=== PATIENT | female | born 1940 | race Caucasian/White ===

== ENCOUNTER 2019-12-12 13:19 | Emergency (ER) | payer MEDICARE, OTHER ==
[~2019-12-12] VITALS: Ht 154.9 cm; Wt 56.7 kg
[~2019-12-12 13:19] MED LIST: ERGO400 PO; LEVSOD75 PO; THYR60 PO
[2019-12-12 14:25] LABS: BASOPHILS ABSOLUTE AUTO 0.02 K/mm3 (0.00-0.23); BASOPHILS PERCENT AUTO 0 % (0-2); EOSINOPHILS ABSOLUTE AUTO 0.06 K/mm3 (0.00-0.68); EOSINOPHILS PERCENT AUTO 1 % (0-6); Hemoglobin 11.8 g/dL (11.5-16.0); IMMATURE GRAN ABSOLUTE AUTO 0.04 K/mm3 (0.00-0.10); IMMATURE GRAN PERCENT AUTO 1 % (0-1); LYMPHOCYTES ABSOLUTE AUTO 1.83 K/mm3 (0.84-5.20); LYMPHOCYTES PERCENT AUTO 22 % (21-46); MONOCYTES ABSOLUTE AUTO 0.78 K/mm3 (0.16-1.47); MONOCYTES PERCENT AUTO 9 % (4-13); Mean Corpuscular HGB 27.2 pg (26.0-34.0); Mean Corpuscular HGB Conc 31.9 g/dL (31.5-36.5); Mean Corpuscular Volume 85 fL (80-100); Mean Platelet Volume 10.2 fL (9.1-12.4); NEUTROPHILS ABSOLUTE AUTO 5.62 K/mm3 (1.96-9.15); NEUTROPHILS PERCENT AUTO 67 % (41-73); Platelet Count 388 K/mm3 (150-400); RDW Coefficient Variation 15.6 % (11.7-14.2); RDW Standard Deviation 48.5 fL (35.1-46.3); Red Blood Cell Count 4.34 M/mm3 (3.80-5.20); White Blood Cell Count 8.35 K/mm3 (4.00-11.30)
[2019-12-12 14:29] LABS: Bilirubin, Urine Neg (Neg); Blood, Urine Neg (Neg); Glucose Qualitative, Urine Neg (Neg); Ketones, Urine Neg (Neg); Leukocyte Esterase, Urine 1+ (Neg); Nitrite, Urine Neg (Neg); Protein, Urine 2+ (Neg); Source, Urine Clean Catch; Urobilinogen, Urine NORM (Normal)
[2019-12-12 14:36] LABS: Appearance, Urine Clear (Clear); Color, Urine Yellow (P-Yellow)
[2019-12-12 14:38] LABS: Bacteria Few /hpf; Mucus Light (0-Heavy); Red Blood Cells, Urine 0-2 /hpf (0-2); Squamous Epithelial Cells Few /hpf (Few)
[2019-12-12 14:54] LABS: Albumin, Blood 3.2 g/dL (3.4-5.0); Albumin/Globulin Ratio 0.6 (0.8-1.8); Bilirubin, Total 0.6 mg/dL (0.1-1.0); Bun/Creatinine Ratio 15.8 (12.0-20.0); Creatinine, Blood 1.14 mg/dL (0.40-1.00); Globulin, Blood 5.7 g/dL (2.2-4.0); Potassium, Blood 4.3 mmol/L (3.5-5.5); Total Protein, Blood 8.9 g/dL (6.4-8.2)
== END 2019-12-12 18:46 | disposition home or self-care (01) ==
LOC: ER 13:19
PROVIDERS: Physician Assistant
DX: R19.00 Intra-abdominal and pelvic swelling, mass and lump, unspecified site (principal); E03.9 Hypothyroidism, unspecified; Z79.899 Other long term (current) drug therapy
CPT/HCPCS: 36415; 74176; 76830; 76856; 80053; 81001; 83690; 85025; 87086; 99284-25

== ENCOUNTER → 2020-03-04 | Outpatient (CLI) | payer MEDICARE, OTHER ==
[~2020-03-04] MED LIST changes: +ACET500 PO; +Armour Thyroid120 MG PO; +BACTRIM DS TAB1 EACH PO; +CEFD300 PO; -ERGO400 PO; +KEFLEX500 MG PO; +ONDA4 PO; +THERA-D2000 UNIT PO
[2020-03-04 11:09] LABS: BASOPHILS ABSOLUTE AUTO 0.02 K/mm3 (0.00-0.23); BASOPHILS PERCENT AUTO 0 % (0-2); EOSINOPHILS PERCENT AUTO 1 % (0-6); Hematocrit 32.8 % (33.0-51.0); IMMATURE GRAN ABSOLUTE AUTO 0.02 K/mm3 (0.00-0.10); IMMATURE GRAN PERCENT AUTO 0 % (0-1); LYMPHOCYTES ABSOLUTE AUTO 1.51 K/mm3 (0.84-5.20); LYMPHOCYTES PERCENT AUTO 17 % (21-46); MONOCYTES ABSOLUTE AUTO 1.18 K/mm3 (0.16-1.47); MONOCYTES PERCENT AUTO 13 % (4-13); Mean Corpuscular HGB 28.7 pg (26.0-34.0); Mean Corpuscular HGB Conc 30.5 g/dL (31.5-36.5); Mean Corpuscular Volume 94 fL (80-100); Mean Platelet Volume 10.6 fL (9.1-12.4); NEUTROPHILS ABSOLUTE AUTO 5.99 K/mm3 (1.96-9.15); NEUTROPHILS PERCENT AUTO 68 % (41-73); Platelet Count 360 K/mm3 (150-400); RDW Standard Deviation 55.6 fL (35.1-46.3); Red Blood Cell Count 3.48 M/mm3 (3.80-5.20); White Blood Cell Count 8.82 K/mm3 (4.00-11.30)
[2020-03-04 11:41] LABS: Albumin/Globulin Ratio 0.6 (0.8-1.8); Bilirubin, Total 0.3 mg/dL (0.1-1.0); Bun/Creatinine Ratio 12.6 (12.0-20.0); Calcium, Blood 8.7 mg/dL (8.5-10.1); Creatinine, Blood 1.11 mg/dL (0.40-1.00); Globulin, Blood 5.3 g/dL (2.2-4.0); Potassium, Blood 3.8 mmol/L (3.5-5.5); Total Protein, Blood 8.3 g/dL (6.4-8.2)
== END | disposition home or self-care (01) ==
LOC: LAB 10:57 → LAB SHORT 10:57
PROVIDERS: Physician Assistant
DX: N39.0 Urinary tract infection, site not specified (principal); R30.0 Dysuria; R53.83 Other fatigue
CPT/HCPCS: 80053; 85025; 87086

== ENCOUNTER → 2020-03-07 | Outpatient (CLI) | payer MEDICARE, OTHER | END | disposition home or self-care (01) | LOC: LAB SHORT 15:00 → LAB 15:00 | DX: R30.0 Dysuria (principal) | CPT/HCPCS: 87077; 87086; 87186 ==

== ENCOUNTER → 2020-04-10 | Outpatient (CLI) | payer MEDICARE, OTHER | LOC: LAB 18:42 → LAB SHORT 18:42 | DX: R30.0 Dysuria (principal) | CPT/HCPCS: 87077; 87086; 87186 ==

== ENCOUNTER 2020-06-01 04:07 | Emergency (ER) | payer MEDICARE, OTHER ==
[~2020-06-01] VITALS: Ht 152.4 cm; Wt 49.9 kg
[2020-06-01 04:32] LABS: BASOPHILS ABSOLUTE AUTO 0.01 K/mm3 (0.00-0.23); BASOPHILS PERCENT AUTO 0 % (0-2); EOSINOPHILS ABSOLUTE AUTO 0.22 K/mm3 (0.00-0.68); EOSINOPHILS PERCENT AUTO 2 % (0-6); Hematocrit 34.1 % (33.0-51.0); Hemoglobin 10.6 g/dL (11.5-16.0); IMMATURE GRAN ABSOLUTE AUTO 0.07 K/mm3 (0.00-0.10); IMMATURE GRAN PERCENT AUTO 1 % (0-1); LYMPHOCYTES PERCENT AUTO 11 % (21-46); MONOCYTES ABSOLUTE AUTO 0.12 K/mm3 (0.16-1.47); MONOCYTES PERCENT AUTO 1 % (4-13); Mean Corpuscular HGB 26.1 pg (26.0-34.0); Mean Corpuscular HGB Conc 31.1 g/dL (31.5-36.5); Mean Corpuscular Volume 84 fL (80-100); Mean Platelet Volume 10.5 fL (9.1-12.4); NEUTROPHILS PERCENT AUTO 85 % (41-73); Platelet Count 283 K/mm3 (150-400); RDW Coefficient Variation 15.9 % (11.7-14.2); RDW Standard Deviation 48.2 fL (35.1-46.3); Red Blood Cell Count 4.06 M/mm3 (3.80-5.20); White Blood Cell Count 11.52 K/mm3 (4.00-11.30)
[2020-06-01 04:56] LABS: Alanine Aminotransfer (ALT/SGP 24 U/L (12-78); Albumin/Globulin Ratio 0.7 (0.8-1.8); Alk Phos 54 U/L (50-136); Anion Gap 5 mmol/L (6-16); Aspartate Aminotrans (AST/SGOT 25 U/L (12-37); Bilirubin, Total 0.6 mg/dL (0.1-1.0); Blood Urea Nitrogen 28 mg/dL (8-24); Bun/Creatinine Ratio 26.4 (12.0-20.0); CO2, Blood 27 mmol/L (21-32); Calcium, Blood 8.5 mg/dL (8.5-10.1); Chloride, Blood 106 mmol/L (98-108); Creatinine, Blood 1.06 mg/dL (0.40-1.00); Globulin, Blood 4.6 g/dL (2.2-4.0); Glomerular Filtration Rate 53 (60-); Glucose, Blood 111 mg/dL (70-99); Potassium, Blood 3.9 mmol/L (3.5-5.5); Sodium, Blood 138 mmol/L (136-145); Total Protein, Blood 7.6 g/dL (6.4-8.2); Troponin I <0.015 ng/mL (0.000-0.040)
== END 2020-06-01 07:02 | disposition home or self-care (01) ==
LOC: ER 04:07
PROVIDERS: Emergency Medicine
DX: R55 Syncope and collapse (principal); R41.0 Disorientation, unspecified; R53.1 Weakness
CPT/HCPCS: 70450; 80053; 84484; 85025; 93005; 93010; 96374; 99284-25; A9270; J2405

== ENCOUNTER 2020-06-29 12:17 | Emergency (ER) | payer MEDICARE, OTHER ==
[~2020-06-29] VITALS: Ht 152.4 cm; Wt 50.4 kg
[2020-06-29 13:01] LABS: BASOPHILS ABSOLUTE AUTO 0.01 K/mm3 (0.00-0.23); BASOPHILS PERCENT AUTO 0 % (0-2); EOSINOPHILS ABSOLUTE AUTO 0.04 K/mm3 (0.00-0.68); EOSINOPHILS PERCENT AUTO 1 % (0-6); Hematocrit 28.8 % (33.0-51.0); Hemoglobin 8.8 g/dL (11.5-16.0); IMMATURE GRAN ABSOLUTE AUTO 0.08 K/mm3 (0.00-0.10); IMMATURE GRAN PERCENT AUTO 3 % (0-1); LYMPHOCYTES ABSOLUTE AUTO 0.86 K/mm3 (0.84-5.20); LYMPHOCYTES PERCENT AUTO 27 % (21-46); MONOCYTES ABSOLUTE AUTO 0.71 K/mm3 (0.16-1.47); MONOCYTES PERCENT AUTO 22 % (4-13); Mean Corpuscular HGB 25.7 pg (26.0-34.0); Mean Corpuscular HGB Conc 30.6 g/dL (31.5-36.5); Mean Corpuscular Volume 84 fL (80-100); Mean Platelet Volume 9.3 fL (9.1-12.4); NEUTROPHILS ABSOLUTE AUTO 1.48 K/mm3 (1.96-9.15); NEUTROPHILS PERCENT AUTO 47 % (41-73); NRBC ABSOLUTE 0.02 K/mm3 (0.00-0.02); NRBC Auto 0.6 /100 WBC (0.0-0.2); Platelet Count 306 K/mm3 (150-400); RDW Coefficient Variation 17.2 % (11.7-14.2); RDW Standard Deviation 51.9 fL (35.1-46.3); Red Blood Cell Count 3.42 M/mm3 (3.80-5.20); White Blood Cell Count 3.18 K/mm3 (4.00-11.30)
[2020-06-29 13:22] LABS: Albumin/Globulin Ratio 0.7 (0.8-1.8); Bilirubin, Total 0.3 mg/dL (0.1-1.0); Bun/Creatinine Ratio 11.5 (12.0-20.0); Calcium, Blood 8.5 mg/dL (8.5-10.1); Creatinine, Blood 1.3 mg/dL (0.40-1.00); Globulin, Blood 4.6 g/dL (2.2-4.0); Potassium, Blood 4.3 mmol/L (3.5-5.5); Total Protein, Blood 7.6 g/dL (6.4-8.2)
[2020-06-29 14:44] LABS: Source, Urine Clean Catch
[2020-06-29 14:48] LABS: Bilirubin, Urine Neg (Neg); Blood, Urine Neg (Neg); Glucose Qualitative, Urine Neg (Neg); Ketones, Urine Neg (Neg); Leukocyte Esterase, Urine Neg (Neg); Nitrite, Urine Neg (Neg); Protein, Urine Neg (Neg); Specific Gravity, Urine 1.005 (1.003-1.022); Urobilinogen, Urine NORM (Normal)
[2020-06-29 14:53] LABS: Appearance, Urine Clear (Clear); Color, Urine Yellow (P-Yellow)
== END 2020-06-29 16:14 | disposition home or self-care (01) ==
LOC: ER 12:17
PROVIDERS: Emergency Medicine
DX: D64.9 Anemia, unspecified (principal); Z88.0 Allergy status to penicillin
CPT/HCPCS: 36415; 80053; 81003; 85025; 93005; 93010; 99284-25; J7030

== ENCOUNTER 2020-07-08 00:12 | Day surgery (SDC) | payer MEDICARE, OTHER ==
[2020-07-08] MEDS ORDERED: Ativan1 MG (14:05)
[2020-07-08] MEDS ORDERED: LIDO700A20 TOP (14:05)
[2020-07-08] MEDS ORDERED: THYR60 PO (14:06)
[2020-07-08] MEDS ORDERED: VITAMIN D32000 UNI2 PO (14:07)
== END 2020-07-08 15:00 | disposition home or self-care (01) ==
LOC: ATC 00:12
DX: E86.0 Dehydration (principal); C56.1 Malignant neoplasm of right ovary; D63.0 Anemia in neoplastic disease; Z79.899 Other long term (current) drug therapy; Z88.0 Allergy status to penicillin
CPT/HCPCS: 96360; J1642; J7030

== ENCOUNTER 2020-07-09 00:27 | Day surgery (SDC) | payer MEDICARE, OTHER ==
[~2020-07-09 00:27] MED LIST changes: +Ativan1 MG; +LIDO700A20 TOP; +VITAMIN D32000 UNI2 PO
== END 2020-07-09 15:12 | disposition home or self-care (01) ==
LOC: ATC 00:27
DX: E86.0 Dehydration (principal); C56.9 Malignant neoplasm of unspecified ovary; D63.0 Anemia in neoplastic disease; R55 Syncope and collapse; T45.1X5A Adverse effect of antineoplastic and immunosuppressive drugs, initial encounter; Z88.0 Allergy status to penicillin
CPT/HCPCS: 96360; J1642; J7030

== ENCOUNTER 2020-07-14 16:30 | Emergency (ER) | payer MEDICARE, OTHER | END 2020-07-14 16:56 | disposition left against medical advice (07) | LOC: ER 16:30 | DX: Z53.21 Procedure and treatment not carried out due to patient leaving prior to being seen by health care provider (principal) ==

== ENCOUNTER 2020-07-14 16:50 | Day surgery (SDC) | payer MEDICARE, OTHER ==
--- NOTE | 2020-07-14 18:26 | NUR ---
PT LEFT ACCESSED. TO ER VIA WC WITH DAUGHTER.
== END 2020-07-14 18:17 | disposition home or self-care (01) ==
LOC: ATC 16:50
DX: C56.1 Malignant neoplasm of right ovary (principal); Z88.0 Allergy status to penicillin; D63.0 Anemia in neoplastic disease
CPT/HCPCS: 96360; J7030

== ENCOUNTER 2020-07-14 18:32 | Emergency (ER) | payer MEDICARE, OTHER ==
[~2020-07-14] VITALS: Ht 152.4 cm; Wt 49.9 kg
[2020-07-14 19:26] LABS: Hematocrit 25.3 % (33.0-51.0); Hemoglobin 7.8 g/dL (11.5-16.0); Mean Corpuscular HGB 25.7 pg (26.0-34.0); Mean Corpuscular HGB Conc 30.8 g/dL (31.5-36.5); Mean Corpuscular Volume 84 fL (80-100); Mean Platelet Volume 10.1 fL (9.1-12.4); NRBC ABSOLUTE 0.02 K/mm3 (0.00-0.02); NRBC Auto 0.4 /100 WBC (0.0-0.2); Platelet Count 254 K/mm3 (150-400); RDW Coefficient Variation 18.2 % (11.7-14.2); RDW Standard Deviation 52.9 fL (35.1-46.3); Red Blood Cell Count 3.03 M/mm3 (3.80-5.20)
[2020-07-14 19:55] LABS: Alanine Aminotransfer (ALT/SGP 35 U/L (12-78); Albumin, Blood 2.5 g/dL (3.4-5.0); Albumin/Globulin Ratio 0.5 (0.8-1.8); Alk Phos 86 U/L (50-136); Anion Gap 6 mmol/L (6-16); Aspartate Aminotrans (AST/SGOT 28 U/L (12-37); Bilirubin, Total 0.3 mg/dL (0.1-1.0); Blood Urea Nitrogen 16 mg/dL (8-24); Bun/Creatinine Ratio 13.1 (12.0-20.0); CO2, Blood 25 mmol/L (21-32); Calcium, Blood 8.5 mg/dL (8.5-10.1); Chloride, Blood 108 mmol/L (98-108); Creatinine, Blood 1.22 mg/dL (0.40-1.00); Globulin, Blood 4.7 g/dL (2.2-4.0); Glomerular Filtration Rate 45 (60-); Glucose, Blood 121 mg/dL (70-99); Potassium, Blood 4.4 mmol/L (3.5-5.5); Sodium, Blood 139 mmol/L (136-145); Total Protein, Blood 7.2 g/dL (6.4-8.2); Troponin I <0.015 ng/mL (0.000-0.040)
[2020-07-14 19:56] LABS: BASOPHILS ABSOLUTE MAN 0.04 K/mm3 (0.00-0.23); BASOPHILS PERCENT MAN 1 % (0-2); EOSINOPHILS PERCENT MAN 0 % (0-6); LYMPHOCYTES ABSOLUTE MAN 0.51 K/mm3 (0.84-5.20); LYMPHOCYTES PERCENT MAN 11 % (21-46); MONOCYTES ABSOLUTE MAN 0.28 K/mm3 (0.16-1.47); MONOCYTES PERCENT MAN 6 % (4-13); NEUTROPHILS ABSOLUTE MAN 3.85 K/mm3 (1.96-9.15); SEG NEUTROPHILS PERCENT MAN 82 % (41-73); TOTAL CELLS COUNTED 100
== END 2020-07-14 20:54 | disposition home or self-care (01) ==
LOC: ER 18:32
PROVIDERS: Physician Assistant
DX: R55 Syncope and collapse (principal); D53.9 Nutritional anemia, unspecified; E03.9 Hypothyroidism, unspecified; Z88.0 Allergy status to penicillin; Z79.899 Other long term (current) drug therapy
CPT/HCPCS: 80053; 84484; 85025; 93005; 93010; 99283-25; J1642

== ENCOUNTER 2020-07-19 07:04 | Day surgery (SDC) | payer MEDICARE, OTHER ==
[2020-07-19] MEDS ORDERED: SULTRIDS PO (13:57)
== END 2020-07-19 14:36 | disposition home or self-care (01) ==
LOC: ATC 07:04
DX: C56.1 Malignant neoplasm of right ovary (principal); D63.0 Anemia in neoplastic disease; Z79.899 Other long term (current) drug therapy
CPT/HCPCS: 96360; J1642; J7030

== ENCOUNTER 2020-07-21 08:28 | Day surgery (SDC) | payer MEDICARE, OTHER ==
[2020-07-21 09:13] LABS: BASOPHILS ABSOLUTE AUTO 0.02 K/mm3 (0.00-0.23); BASOPHILS PERCENT AUTO 0 % (0-2); EOSINOPHILS ABSOLUTE AUTO 0.04 K/mm3 (0.00-0.68); EOSINOPHILS PERCENT AUTO 1 % (0-6); Hematocrit 26.9 % (33.0-51.0); Hemoglobin 8.2 g/dL (11.5-16.0); IMMATURE GRAN ABSOLUTE AUTO 0.13 K/mm3 (0.00-0.10); IMMATURE GRAN PERCENT AUTO 3 % (0-1); LYMPHOCYTES ABSOLUTE AUTO 1.29 K/mm3 (0.84-5.20); LYMPHOCYTES PERCENT AUTO 28 % (21-46); MONOCYTES ABSOLUTE AUTO 0.78 K/mm3 (0.16-1.47); MONOCYTES PERCENT AUTO 17 % (4-13); Mean Corpuscular HGB 25.5 pg (26.0-34.0); Mean Corpuscular HGB Conc 30.5 g/dL (31.5-36.5); Mean Corpuscular Volume 84 fL (80-100); Mean Platelet Volume 9.3 fL (9.1-12.4); NEUTROPHILS PERCENT AUTO 52 % (41-73); Platelet Count 469 K/mm3 (150-400); RDW Coefficient Variation 18.8 % (11.7-14.2); RDW Standard Deviation 55.8 fL (35.1-46.3); Red Blood Cell Count 3.22 M/mm3 (3.80-5.20); White Blood Cell Count 4.66 K/mm3 (4.00-11.30)
[2020-07-21 09:43] LABS: Alanine Aminotransfer (ALT/SGP 20 U/L (12-78); Albumin, Blood 2.9 g/dL (3.4-5.0); Albumin/Globulin Ratio 0.6 (0.8-1.8); Alk Phos 89 U/L (50-136); Anion Gap 5 mmol/L (6-16); Aspartate Aminotrans (AST/SGOT 19 U/L (12-37); Bilirubin, Direct <0.1 mg/dL (0.0-0.3); Bilirubin, Total 0.2 mg/dL (0.1-1.0); Blood Urea Nitrogen 17 mg/dL (8-24); Bun/Creatinine Ratio 10.7 (12.0-20.0); CHOL/HDL RATIO 3.6; CO2, Blood 25 mmol/L (21-32); Calcium, Blood 9.3 mg/dL (8.5-10.1); Chloride, Blood 111 mmol/L (98-108); Cholesterol 158 mg/dL (50-200); Creatinine, Blood 1.59 mg/dL (0.40-1.00); Globulin, Blood 5.1 g/dL (2.2-4.0); Glomerular Filtration Rate 33 (60-); Glucose, Blood 83 mg/dL (70-99); Glutamyl Transpeptidase, GGT 32 U/L (5-55); HDL Cholesterol 44 mg/dL (>39); Low Density Lipoprotein Chol 88 mg/dL (0-110); Phosphorus, Blood 3.8 mg/dL (2.5-4.9); Potassium, Blood 4.6 mmol/L (3.5-5.5); Sodium, Blood 141 mmol/L (136-145); Triglycerides 132 mg/dL (30-160); Uric Acid, Blood 4.3 mg/dL (2.6-6.0); Very Low Density Lipoprot Chol 26 mg/dL (6-32)
--- NOTE | 2020-07-21 10:30 | NUR ---
LAB RESULTS FROM LABS DRAWN TODAY FAXED TO DR. MORALES'S OFFICE AT [phone].
== END 2020-07-21 10:13 | disposition home or self-care (01) ==
LOC: ATC 08:28
PROVIDERS: Naturopath
DX: C56.1 Malignant neoplasm of right ovary (principal); D63.0 Anemia in neoplastic disease; R55 Syncope and collapse; Z79.899 Other long term (current) drug therapy
CPT/HCPCS: 80053; 80061; 82248; 82977; 83540; 84100; 84443; 84550; 85025; 85651; J1642; J7030

== ENCOUNTER → 2020-07-21 | Outpatient (CLI) | payer MEDICARE, OTHER ==
[~2020-07-21] MED LIST changes: +SULTRIDS PO
== END ==
LOC: LAB SHORT 09:00 → LAB 09:00
DX: N39.0 Urinary tract infection, site not specified (principal)
CPT/HCPCS: 87086

== ENCOUNTER 2020-07-25 00:27 | Day surgery (SDC) | payer MEDICARE, OTHER | END 2020-07-25 12:00 | disposition home or self-care (01) | LOC: ATC 00:27 | DX: E86.0 Dehydration (principal); C56.9 Malignant neoplasm of unspecified ovary; R55 Syncope and collapse; D63.0 Anemia in neoplastic disease ==

== ENCOUNTER 2020-07-30 00:09 | Day surgery (SDC) | payer MEDICARE, OTHER | END 2020-07-30 17:12 | disposition home or self-care (01) | LOC: ATC 00:09 | DX: E86.0 Dehydration (principal); C65.1 Malignant neoplasm of right renal pelvis; D63.0 Anemia in neoplastic disease | CPT/HCPCS: 96360; J1642; J7030 ==

== ENCOUNTER 2020-08-01 01:47 | Day surgery (SDC) | payer MEDICARE, OTHER | END 2020-08-01 15:21 | disposition home or self-care (01) | LOC: ATC 01:47 | DX: E86.0 Dehydration (principal); C56.9 Malignant neoplasm of unspecified ovary; D63.0 Anemia in neoplastic disease | CPT/HCPCS: 96360; J1642; J7030 ==

== ENCOUNTER 2020-08-02 00:34 | Day surgery (SDC) | payer MEDICARE, OTHER | END 2020-08-02 10:55 | disposition home or self-care (01) | LOC: ATC 00:34 | DX: E86.0 Dehydration (principal); C56.1 Malignant neoplasm of right ovary; G89.29 Other chronic pain; M54.2 Cervicalgia; Z88.0 Allergy status to penicillin; Z93.6 Other artificial openings of urinary tract status; Z90.79 Acquired absence of other genital organ(s); Z90.722 Acquired absence of ovaries, bilateral; Z79.2 Long term (current) use of antibiotics; Z79.52 Long term (current) use of systemic steroids; Z79.899 Other long term (current) drug therapy | CPT/HCPCS: 96360; J1642; J7030 ==

== ENCOUNTER 2020-08-03 01:49 | Day surgery (SDC) | payer MEDICARE, OTHER | END 2020-08-03 11:36 | disposition home or self-care (01) | LOC: ATC 01:49 | DX: E86.0 Dehydration (principal); C56.9 Malignant neoplasm of unspecified ovary; D63.0 Anemia in neoplastic disease | CPT/HCPCS: 96360; J1642; J7030 ==

== ENCOUNTER 2020-08-06 00:45 | Day surgery (SDC) | payer MEDICARE, OTHER | END 2020-08-06 17:25 | disposition home or self-care (01) | LOC: ATC 00:45 | DX: E86.0 Dehydration (principal); C56.9 Malignant neoplasm of unspecified ovary; D63.0 Anemia in neoplastic disease | CPT/HCPCS: 96360; J1642; J7030 ==

== ENCOUNTER 2020-08-09 10:51 | Day surgery (SDC) | payer MEDICARE, OTHER | END 2020-08-09 12:04 | disposition home or self-care (01) | LOC: ATC 10:51 | DX: E86.0 Dehydration (principal); C56.1 Malignant neoplasm of right ovary; D63.0 Anemia in neoplastic disease; Z88.0 Allergy status to penicillin; Z79.899 Other long term (current) drug therapy | CPT/HCPCS: 96360; J1642; J7030 ==

== ENCOUNTER 2020-08-13 00:31 | Day surgery (SDC) | payer MEDICARE, OTHER | END 2020-08-13 22:45 | disposition home or self-care (01) | LOC: ATC 00:31 | DX: E86.0 Dehydration (principal); I10 Essential (primary) hypertension; C56.9 Malignant neoplasm of unspecified ovary; D63.0 Anemia in neoplastic disease; Z79.899 Other long term (current) drug therapy | CPT/HCPCS: 96360; J1642; J7030 ==

== ENCOUNTER 2020-08-22 01:33 | Day surgery (SDC) | payer MEDICARE, OTHER ==
[2020-08-22 08:29] LABS: BASOPHILS ABSOLUTE AUTO 0.01 K/mm3 (0.00-0.23); BASOPHILS PERCENT AUTO 0 % (0-2); EOSINOPHILS ABSOLUTE AUTO 0.01 K/mm3 (0.00-0.68); EOSINOPHILS PERCENT AUTO 0 % (0-6); Hematocrit 29.5 % (33.0-51.0); Hemoglobin 9.1 g/dL (11.5-16.0); IMMATURE GRAN ABSOLUTE AUTO 0.02 K/mm3 (0.00-0.10); IMMATURE GRAN PERCENT AUTO 0 % (0-1); LYMPHOCYTES ABSOLUTE AUTO 1.73 K/mm3 (0.84-5.20); LYMPHOCYTES PERCENT AUTO 32 % (21-46); MONOCYTES ABSOLUTE AUTO 0.23 K/mm3 (0.16-1.47); MONOCYTES PERCENT AUTO 4 % (4-13); Mean Corpuscular HGB 27.7 pg (26.0-34.0); Mean Corpuscular HGB Conc 30.8 g/dL (31.5-36.5); Mean Corpuscular Volume 90 fL (80-100); Mean Platelet Volume 9.9 fL (9.1-12.4); NEUTROPHILS ABSOLUTE AUTO 3.44 K/mm3 (1.96-9.15); NEUTROPHILS PERCENT AUTO 63 % (41-73); Platelet Count 251 K/mm3 (150-400); RDW Coefficient Variation 24.4 % (11.7-14.2); RDW Standard Deviation 78.3 fL (35.1-46.3); Red Blood Cell Count 3.29 M/mm3 (3.80-5.20); White Blood Cell Count 5.44 K/mm3 (4.00-11.30)
[2020-08-22 09:01] LABS: Very Low Density Lipoprot Chol 17 mg/dL (6-32)
[2020-08-22 09:02] LABS: Alanine Aminotransfer (ALT/SGP 25 U/L (12-78); Albumin, Blood 3.6 g/dL (3.4-5.0); Albumin/Globulin Ratio 0.8 (0.8-1.8); Alk Phos 76 U/L (50-136); Anion Gap 6 mmol/L (6-16); Aspartate Aminotrans (AST/SGOT 20 U/L (12-37); Bilirubin, Total 0.7 mg/dL (0.1-1.0); Blood Urea Nitrogen 31 mg/dL (8-24); Bun/Creatinine Ratio 31.2 (12.0-20.0); CHOL/HDL RATIO 2.9; CO2, Blood 28 mmol/L (21-32); Calcium, Blood 8.9 mg/dL (8.5-10.1); Chloride, Blood 107 mmol/L (98-108); Cholesterol 229 mg/dL (50-200); Creatinine, Blood 0.99 mg/dL (0.40-1.00); Globulin, Blood 4.5 g/dL (2.2-4.0); Glomerular Filtration Rate 57 (60-); Glucose, Blood 76 mg/dL (70-99); HDL Cholesterol 79 mg/dL (>39); LDL/HDL RATIO 1.7; Low Density Lipoprotein Chol 133 mg/dL (0-110); Potassium, Blood 4.1 mmol/L (3.5-5.5); Sodium, Blood 141 mmol/L (136-145); Total Protein, Blood 8.1 g/dL (6.4-8.2); Triglycerides 87 mg/dL (30-160)
== END 2020-08-22 08:59 | disposition home or self-care (01) ==
LOC: ATC 01:33
PROVIDERS: Internal Medicine Hematology & Oncology
DX: E03.9 Hypothyroidism, unspecified (principal); E78.5 Hyperlipidemia, unspecified; C56.1 Malignant neoplasm of right ovary; D63.0 Anemia in neoplastic disease; Z79.899 Other long term (current) drug therapy
CPT/HCPCS: 80053; 80061; 84443; 85025; J1642; J7030

== ENCOUNTER 2020-09-10 00:54 | Day surgery (SDC) | payer MEDICARE, OTHER | END 2020-09-10 17:40 | disposition home or self-care (01) | LOC: ATC 00:54 | DX: C56.1 Malignant neoplasm of right ovary (principal); D63.0 Anemia in neoplastic disease; I12.9 Hypertensive chronic kidney disease with stage 1 through stage 4 chronic kidney disease, or unspecified chronic kidney disease; N18.30 Chronic kidney disease, stage 3 unspecified; E78.00 Pure hypercholesterolemia, unspecified; E78.5 Hyperlipidemia, unspecified; E03.9 Hypothyroidism, unspecified; Z79.899 Other long term (current) drug therapy; Z88.0 Allergy status to penicillin | CPT/HCPCS: 96360; J1642; J7030 ==

== ENCOUNTER 2020-09-12 00:37 | Day surgery (SDC) | payer MEDICARE, OTHER ==
[2020-09-12] MEDS ORDERED: NEULASTA6 MG/0.6 M SC (16:22)
--- NOTE | 2020-09-12 17:41 | NUR ---
PT GOING TO ER R/T NEW ONSET HTN, POUNDING HEART. PT ACCOMPANIED BY HER DAUGHTER.
== END 2020-09-12 17:30 | disposition home or self-care (01) ==
LOC: ATC 00:37
DX: C56.1 Malignant neoplasm of right ovary (principal); D63.0 Anemia in neoplastic disease; Z88.0 Allergy status to penicillin
CPT/HCPCS: J1642; J7030

== ENCOUNTER 2020-09-12 17:35 | Emergency (ER) | payer MEDICARE, OTHER ==
[~2020-09-12] VITALS: Ht 152.4 cm; Wt 54.4 kg
[~2020-09-12 17:35] MED LIST changes: +NEULASTA6 MG/0.6 M SC
[2020-09-12 18:22] LABS: Hematocrit 31.7 % (33.0-51.0); Hemoglobin 9.6 g/dL (11.5-16.0); Mean Corpuscular HGB 28.9 pg (26.0-34.0); Mean Corpuscular HGB Conc 30.3 g/dL (31.5-36.5); Mean Corpuscular Volume 96 fL (80-100); Mean Platelet Volume 9.8 fL (9.1-12.4); Platelet Count 177 K/mm3 (150-400); RDW Coefficient Variation 22.5 % (11.7-14.2); RDW Standard Deviation 78.8 fL (35.1-46.3); Red Blood Cell Count 3.32 M/mm3 (3.80-5.20)
[2020-09-12 18:44] LABS: BAND PERCENT MAN 2 % (0-8); BASOPHILS PERCENT MAN 0 % (0-2); EOSINOPHILS PERCENT MAN 0 % (0-6); LYMPHOCYTES ABSOLUTE MAN 1.64 K/mm3 (0.84-5.20); LYMPHOCYTES PERCENT MAN 7 % (21-46); METAMYELOCYTE PERCENT MAN 3 % (0-0); MONOCYTES ABSOLUTE MAN 0.94 K/mm3 (0.16-1.47); MONOCYTES PERCENT MAN 4 % (4-13); NEUTROPHILS ABSOLUTE MAN 20.21 K/mm3 (1.96-9.15); SEG NEUTROPHILS PERCENT MAN 84 % (41-73); TOTAL CELLS COUNTED 100
[2020-09-12 18:50] LABS: Troponin I <0.015 ng/mL (0.000-0.040)
[2020-09-12 18:51] LABS: Alanine Aminotransfer (ALT/SGP 27 U/L (12-78); Albumin, Blood 3.6 g/dL (3.4-5.0); Albumin/Globulin Ratio 0.9 (0.8-1.8); Alk Phos 107 U/L (50-136); Anion Gap 8 mmol/L (6-16); Aspartate Aminotrans (AST/SGOT 25 U/L (12-37); Bilirubin, Total 0.4 mg/dL (0.1-1.0); Blood Urea Nitrogen 27 mg/dL (8-24); Bun/Creatinine Ratio 26.2 (12.0-20.0); CO2, Blood 22 mmol/L (21-32); Calcium, Blood 8.8 mg/dL (8.5-10.1); Chloride, Blood 113 mmol/L (98-108); Creatinine, Blood 1.03 mg/dL (0.40-1.00); Globulin, Blood 3.9 g/dL (2.2-4.0); Glomerular Filtration Rate 55 (60-); Glucose, Blood 96 mg/dL (70-99); Potassium, Blood 4.3 mmol/L (3.5-5.5); Sodium, Blood 143 mmol/L (136-145); Total Protein, Blood 7.5 g/dL (6.4-8.2)
== END 2020-09-12 20:29 | disposition home or self-care (01) ==
LOC: ER 17:35
PROVIDERS: Physician Assistant
DX: I10 Essential (primary) hypertension (principal); R00.2 Palpitations; E03.9 Hypothyroidism, unspecified; Z79.899 Other long term (current) drug therapy
CPT/HCPCS: 36415; 80053; 84443; 84484; 85025; 93005; 93010; 99283-25

== ENCOUNTER 2020-12-29 22:50 | Emergency (ER) | payer MEDICARE, OTHER ==
[~2020-12-29] VITALS: Ht 152.4 cm; Wt 53.5 kg
[2020-12-30 00:15] LABS: Bun/Creatinine Ratio 19.1 (12.0-20.0); Calcium, Blood 8.7 mg/dL (8.5-10.1); Creatinine, Blood 1.31 mg/dL (0.40-1.00); Potassium, Blood 3.9 mmol/L (3.5-5.5)
== END 2020-12-30 01:20 | disposition home or self-care (01) ==
LOC: ER 22:50
PROVIDERS: Student in an Organized Health Care Education/Training Program
DX: R20.2 Paresthesia of skin (principal); Z88.0 Allergy status to penicillin; Z79.899 Other long term (current) drug therapy
CPT/HCPCS: 36415; 70450; 80048; 93005; 93010; 99284-25

== ENCOUNTER → 2021-01-26 | Outpatient (CLI) | payer MEDICARE, OTHER ==
[2021-01-26 09:37] LABS: BASOPHILS ABSOLUTE AUTO 0.01 K/mm3 (0.00-0.23); BASOPHILS PERCENT AUTO 0 % (0-2); EOSINOPHILS ABSOLUTE AUTO 0.07 K/mm3 (0.00-0.68); EOSINOPHILS PERCENT AUTO 1 % (0-6); Hematocrit 34.2 % (33.0-51.0); Hemoglobin 10.6 g/dL (11.5-16.0); IMMATURE GRAN PERCENT AUTO 0 % (0-1); LYMPHOCYTES ABSOLUTE AUTO 1.75 K/mm3 (0.84-5.20); LYMPHOCYTES PERCENT AUTO 36 % (21-46); MONOCYTES ABSOLUTE AUTO 0.52 K/mm3 (0.16-1.47); MONOCYTES PERCENT AUTO 11 % (4-13); Mean Corpuscular HGB 27.3 pg (26.0-34.0); Mean Corpuscular Volume 88 fL (80-100); Mean Platelet Volume 9.5 fL (9.1-12.4); NEUTROPHILS ABSOLUTE AUTO 2.55 K/mm3 (1.96-9.15); NEUTROPHILS PERCENT AUTO 52 % (41-73); Platelet Count 243 K/mm3 (150-400); RDW Coefficient Variation 15.7 % (11.7-14.2); RDW Standard Deviation 50.5 fL (35.1-46.3); Red Blood Cell Count 3.88 M/mm3 (3.80-5.20)
[2021-01-26 10:14] LABS: Alanine Aminotransfer (ALT/SGP 21 U/L (12-78); Albumin, Blood 3.5 g/dL (3.4-5.0); Albumin/Globulin Ratio 0.7 (0.8-1.8); Alk Phos 76 U/L (50-136); Anion Gap 3 mmol/L (6-16); Aspartate Aminotrans (AST/SGOT 21 U/L (12-37); Bilirubin, Total 0.7 mg/dL (0.1-1.0); Blood Urea Nitrogen 22 mg/dL (8-24); Bun/Creatinine Ratio 16.1 (12.0-20.0); CHOL/HDL RATIO 3.2; CO2, Blood 27 mmol/L (21-32); Calcium, Blood 9.1 mg/dL (8.5-10.1); Chloride, Blood 112 mmol/L (98-108); Cholesterol 187 mg/dL (50-200); Creatinine, Blood 1.37 mg/dL (0.40-1.00); Globulin, Blood 4.9 g/dL (2.2-4.0); Glomerular Filtration Rate 39 (60-); Glucose, Blood 98 mg/dL (70-99); HDL Cholesterol 58 mg/dL (>39); LDL/HDL RATIO 1.9; Low Density Lipoprotein Chol 112 mg/dL (0-110); Potassium, Blood 4.1 mmol/L (3.5-5.5); Sodium, Blood 142 mmol/L (136-145); Total Protein, Blood 8.4 g/dL (6.4-8.2); Triglycerides 87 mg/dL (30-160); Very Low Density Lipoprot Chol 17 mg/dL (6-32)
[2021-01-26 10:56] LABS: Ferritin, Serum 42 ng/mL (8-252); Free Thyroxine 0.88 ng/dL (0.70-1.60); Iron Serum 37 ug/dL (50-170); Percent Saturation 14.4 % (15.0-50.0); Thyroid Stimulating Hormone 0.051 uIU/mL (0.360-4.800); Total Iron Binding Capacity 257 ug/dL (250-450); Triiodothyronine, Free 2.64 pg/mL (2.18-3.98)
== END | disposition home or self-care (01) ==
LOC: LAB SHORT 08:26 → OLS 08:26
PROVIDERS: Hospitalist
DX: E78.5 Hyperlipidemia, unspecified (principal); E03.9 Hypothyroidism, unspecified; D64.9 Anemia, unspecified; I10 Essential (primary) hypertension
CPT/HCPCS: 36415; 80053; 80061; 82607; 82728; 82746; 83540; 83550; 84439; 84443; 84481; 85025

== ENCOUNTER 2021-06-08 01:42 | Emergency (ER) | payer MEDICARE, OTHER ==
[~2021-06-08] VITALS: Ht 154.9 cm; Wt 54.4 kg
[2021-06-08 02:32] LABS: BASOPHILS ABSOLUTE AUTO 0.01 K/mm3 (0.00-0.23); BASOPHILS PERCENT AUTO 0 % (0-2); EOSINOPHILS ABSOLUTE AUTO 0.36 K/mm3 (0.00-0.68); EOSINOPHILS PERCENT AUTO 7 % (0-6); Hematocrit 33.4 % (33.0-51.0); Hemoglobin 10.5 g/dL (11.5-16.0); IMMATURE GRAN ABSOLUTE AUTO 0.01 K/mm3 (0.00-0.10); IMMATURE GRAN PERCENT AUTO 0 % (0-1); LYMPHOCYTES ABSOLUTE AUTO 1.44 K/mm3 (0.84-5.20); LYMPHOCYTES PERCENT AUTO 26 % (21-46); MONOCYTES ABSOLUTE AUTO 0.55 K/mm3 (0.16-1.47); MONOCYTES PERCENT AUTO 10 % (4-13); Mean Corpuscular HGB 27.9 pg (26.0-34.0); Mean Corpuscular HGB Conc 31.4 g/dL (31.5-36.5); Mean Corpuscular Volume 89 fL (80-100); Mean Platelet Volume 9.6 fL (9.1-12.4); NEUTROPHILS ABSOLUTE AUTO 3.08 K/mm3 (1.96-9.15); NEUTROPHILS PERCENT AUTO 57 % (41-73); Platelet Count 257 K/mm3 (150-400); RDW Coefficient Variation 15.4 % (11.7-14.2); RDW Standard Deviation 49.5 fL (35.1-46.3); Red Blood Cell Count 3.76 M/mm3 (3.80-5.20); White Blood Cell Count 5.45 K/mm3 (4.00-11.30)
[2021-06-08 02:54] LABS: Alanine Aminotransfer (ALT/SGP 23 U/L (12-78); Albumin, Blood 3.6 g/dL (3.4-5.0); Albumin/Globulin Ratio 0.8 (0.8-1.8); Alk Phos 68 U/L (50-136); Anion Gap 6 mmol/L (6-16); Aspartate Aminotrans (AST/SGOT 23 U/L (12-37); Bilirubin, Total 0.3 mg/dL (0.1-1.0); Blood Urea Nitrogen 25 mg/dL (8-24); Bun/Creatinine Ratio 14.6 (12.0-20.0); CO2, Blood 24 mmol/L (21-32); Calcium, Blood 8.7 mg/dL (8.5-10.1); Chloride, Blood 108 mmol/L (98-108); Creatinine, Blood 1.71 mg/dL (0.40-1.00); Globulin, Blood 4.8 g/dL (2.2-4.0); Glomerular Filtration Rate 29 (60-); Glucose, Blood 99 mg/dL (70-99); Magnesium, Blood 2.4 mg/dL (1.6-2.4); Potassium, Blood 4.2 mmol/L (3.5-5.5); Sodium, Blood 138 mmol/L (136-145); Total Protein, Blood 8.4 g/dL (6.4-8.2); Troponin I <0.015 ng/mL (0.000-0.040)
[2021-06-08 03:26] LABS: Free Thyroxine 0.61 ng/dL (0.70-1.60)
== END 2021-06-08 05:45 | disposition home or self-care (01) ==
LOC: ER 01:42
PROVIDERS: Emergency Medicine
DX: R00.2 Palpitations (principal); Z88.0 Allergy status to penicillin; Z85.43 Personal history of malignant neoplasm of ovary
CPT/HCPCS: 36415; 71045; 80053; 83735; 84439; 84443; 84484; 85025; 93005; 93010; 99285-25; J7030

== ENCOUNTER → 2021-10-06 | Outpatient (CLI) | payer MEDICARE, OTHER ==
[2021-10-06 15:31] LABS: BASOPHILS ABSOLUTE AUTO 0.01 K/mm3 (0.00-0.23); BASOPHILS PERCENT AUTO 0 % (0-2); EOSINOPHILS ABSOLUTE AUTO 0.03 K/mm3 (0.00-0.68); EOSINOPHILS PERCENT AUTO 1 % (0-6); Hematocrit 32.2 % (33.0-51.0); Hemoglobin 10.4 g/dL (11.5-16.0); IMMATURE GRAN ABSOLUTE AUTO 0.02 K/mm3 (0.00-0.10); IMMATURE GRAN PERCENT AUTO 0 % (0-1); LYMPHOCYTES ABSOLUTE AUTO 1.49 K/mm3 (0.84-5.20); LYMPHOCYTES PERCENT AUTO 32 % (21-46); MONOCYTES ABSOLUTE AUTO 0.36 K/mm3 (0.16-1.47); MONOCYTES PERCENT AUTO 8 % (4-13); Mean Corpuscular HGB 27.4 pg (26.0-34.0); Mean Corpuscular HGB Conc 32.3 g/dL (31.5-36.5); Mean Corpuscular Volume 85 fL (80-100); Mean Platelet Volume 10.7 fL (9.1-12.4); NEUTROPHILS ABSOLUTE AUTO 2.81 K/mm3 (1.96-9.15); NEUTROPHILS PERCENT AUTO 60 % (41-73); Platelet Count 244 K/mm3 (150-400); RDW Coefficient Variation 14.7 % (11.7-14.2); RDW Standard Deviation 45.5 fL (35.1-46.3); White Blood Cell Count 4.72 K/mm3 (4.00-11.30)
[2021-10-06 15:40] LABS: Albumin, Blood 3.1 g/dL (3.4-5.0); Albumin/Globulin Ratio 0.7 (0.8-1.8); Bilirubin, Total 0.4 mg/dL (0.1-1.0); Bun/Creatinine Ratio 15.8 (12.0-20.0); Calcium, Blood 8.5 mg/dL (8.5-10.1); Creatinine, Blood 2.21 mg/dL (0.40-1.00); Globulin, Blood 4.4 g/dL (2.2-4.0); Potassium, Blood 5.1 mmol/L (3.5-5.5); Total Protein, Blood 7.5 g/dL (6.4-8.2)
== END | disposition home or self-care (01) ==
LOC: LAB SHORT 15:18 → LAB 15:18
PROVIDERS: Chiropractor
DX: U07.1 COVID-19 (principal)
CPT/HCPCS: 80053; 85025

== ENCOUNTER → 2023-02-25 | Outpatient (CLI) | payer MEDICARE, OTHER ==
[2023-02-25 14:18] LABS: BASOPHILS ABSOLUTE AUTO 0.02 K/mm3 (0.00-0.23); BASOPHILS PERCENT AUTO 1 % (0-2); EOSINOPHILS PERCENT AUTO 0 % (0-6); Hematocrit 32.1 % (33.0-51.0); Hemoglobin 10.5 g/dL (11.5-16.0); IMMATURE GRAN ABSOLUTE AUTO 0.02 K/mm3 (0.00-0.10); IMMATURE GRAN PERCENT AUTO 1 % (0-1); LYMPHOCYTES ABSOLUTE AUTO 0.55 K/mm3 (0.84-5.20); LYMPHOCYTES PERCENT AUTO 13 % (21-46); MONOCYTES ABSOLUTE AUTO 0.38 K/mm3 (0.16-1.47); MONOCYTES PERCENT AUTO 9 % (4-13); Mean Corpuscular HGB 28.3 pg (26.0-34.0); Mean Corpuscular HGB Conc 32.7 g/dL (31.5-36.5); Mean Corpuscular Volume 87 fL (80-100); Mean Platelet Volume 9.7 fL (9.1-12.4); NEUTROPHILS PERCENT AUTO 78 % (41-73); Platelet Count 228 K/mm3 (150-400); RDW Coefficient Variation 17.1 % (11.7-14.2); RDW Standard Deviation 53.4 fL (35.1-46.3); Red Blood Cell Count 3.71 M/mm3 (3.80-5.20); White Blood Cell Count 4.37 K/mm3 (4.00-11.30)
[2023-02-25 14:31] LABS: Alanine Aminotransfer (ALT/SGP 33 U/L (12-78); Albumin, Blood 3.6 g/dL (3.4-5.0); Albumin/Globulin Ratio 0.8 (0.8-1.8); Alk Phos 56 U/L (40-126); Anion Gap 18 mmol/L (6-16); Aspartate Aminotrans (AST/SGOT 72 U/L (12-37); Blood Urea Nitrogen 28 mg/dL (8-24); Bun/Creatinine Ratio 9.1 (12.0-20.0); CO2, Blood 22 mmol/L (21-32); Calcium, Blood 8.9 mg/dL (8.5-10.1); Chloride, Blood 97 mmol/L (98-108); Creatinine, Blood 3.07 mg/dL (0.40-1.00); Free Thyroxine 0.62 ng/dL (0.70-1.60); Globulin, Blood 4.6 g/dL (2.2-4.0); Glomerular Filtration Rate 15 (60-); Glucose, Blood 96 mg/dL (70-99); Potassium, Blood 4.4 mmol/L (3.5-5.5); Sodium, Blood 137 mmol/L (136-145); Total Protein, Blood 8.2 g/dL (6.4-8.2)
[2023-02-25 14:35] LABS: Bilirubin, Total <0.1 mg/dL (0.1-1.0)
== END | disposition home or self-care (01) ==
LOC: LAB 14:05 → LAB SHORT 14:05
PROVIDERS: Chiropractor
DX: R10.9 Unspecified abdominal pain (principal); R94.6 Abnormal results of thyroid function studies
CPT/HCPCS: 80053; 83690; 84439; 84484; 85025

== ENCOUNTER → 2023-02-26 | Outpatient (CLI) | payer MEDICARE, OTHER ==
[2023-02-26 16:53] LABS: Albumin/Globulin Ratio 0.8 (0.8-1.8); Bilirubin, Total 0.4 mg/dL (0.1-1.0); Bun/Creatinine Ratio 14.6 (12.0-20.0); Creatinine, Blood 2.13 mg/dL (0.40-1.00)
== END | disposition home or self-care (01) ==
LOC: LAB SHORT 16:35 → LAB 16:35
PROVIDERS: Emergency Medicine
DX: N17.9 Acute kidney failure, unspecified (principal)
CPT/HCPCS: 80053

== ENCOUNTER → 2023-02-27 | Outpatient (CLI) | payer MEDICARE, OTHER ==
[2023-02-27 12:30] LABS: Albumin, Blood 3.4 g/dL (3.4-5.0); Albumin/Globulin Ratio 0.8 (0.8-1.8); Bilirubin, Total 0.4 mg/dL (0.1-1.0); Bun/Creatinine Ratio 11.5 (12.0-20.0); Calcium, Blood 8.7 mg/dL (8.5-10.1); Globulin, Blood 4.5 g/dL (2.2-4.0); Potassium, Blood 3.8 mmol/L (3.5-5.5); Total Protein, Blood 7.9 g/dL (6.4-8.2)
== END | disposition home or self-care (01) ==
LOC: LAB SHORT 12:14 → LAB 12:14
PROVIDERS: Physician Assistant
DX: E86.0 Dehydration (principal)
CPT/HCPCS: 80053

== ENCOUNTER 2023-03-05 11:25 | Inpatient (IN) | payer MEDICARE, OTHER ==
[~2023-03-05] VITALS: Ht 154.9 cm; Wt 47.4 kg
[2023-03-05 12:04] LABS: BASOPHILS PERCENT AUTO 0 % (0-2); EOSINOPHILS ABSOLUTE AUTO 0.01 K/mm3 (0.00-0.68); EOSINOPHILS PERCENT AUTO 1 % (0-6); Hematocrit 33.5 % (33.0-51.0); Hemoglobin 11.2 g/dL (11.5-16.0); IMMATURE GRAN PERCENT AUTO 0 % (0-1); LYMPHOCYTES PERCENT AUTO 40 % (21-46); MONOCYTES ABSOLUTE AUTO 0.11 K/mm3 (0.16-1.47); MONOCYTES PERCENT AUTO 7 % (4-13); Mean Corpuscular HGB 27.9 pg (26.0-34.0); Mean Corpuscular HGB Conc 33.4 g/dL (31.5-36.5); Mean Corpuscular Volume 83 fL (80-100); Mean Platelet Volume 10.3 fL (9.1-12.4); NEUTROPHILS ABSOLUTE AUTO 0.78 K/mm3 (1.96-9.15); NEUTROPHILS PERCENT AUTO 52 % (41-73); Platelet Count 75 K/mm3 (150-400); RDW Coefficient Variation 16.4 % (11.7-14.2); RDW Standard Deviation 49.8 fL (35.1-46.3); Red Blood Cell Count 4.02 M/mm3 (3.80-5.20)
[2023-03-05 12:23] LABS: Albumin, Blood 3.6 g/dL (3.4-5.0); Albumin/Globulin Ratio 0.8 (0.8-1.8); Bilirubin, Total 0.5 mg/dL (0.1-1.0); Bun/Creatinine Ratio 14.3 (12.0-20.0); Calcium, Blood 9.3 mg/dL (8.5-10.1); Creatinine, Blood 1.47 mg/dL (0.40-1.00); Globulin, Blood 4.3 g/dL (2.2-4.0); Potassium, Blood 3.4 mmol/L (3.5-5.5); Total Protein, Blood 7.9 g/dL (6.4-8.2)
[2023-03-05] MEDS ORDERED: LOMOTIL 2.5-0.1 EACH PO (15:49)
[2023-03-05] MEDS ORDERED: OXYCODONE-ACET1 EAC3 PO (15:49)
[2023-03-05] MEDS ORDERED: PREGABALIN25 MG PO (15:49)
[2023-03-05 16:13] LABS: Source, Urine Clean Catch
[2023-03-05 16:21] LABS: Appearance, Urine Clear (Clear); Bilirubin, Urine Neg (Neg); Blood, Urine 4+ (Neg); Color, Urine Yellow (P-Yellow); Glucose Qualitative, Urine Neg (Neg); Ketones, Urine 1+ (Neg); Leukocyte Esterase, Urine Neg (Neg); Nitrite, Urine Neg (Neg); Protein, Urine 2+ (Neg); Specific Gravity, Urine 1.015 (1.003-1.022); Urobilinogen, Urine NORM (Normal); pH, Urine 6.5 (5.0-8.0)
[2023-03-05 16:24] LABS: Bacteria Many /hpf; Hyaline Casts 0-2 /lpf (0-2); Squamous Epithelial Cells Few /hpf (Few); Yeast/Fungi Urine Rare /hpf
[2023-03-05] MEDS ORDERED: PROC5 PO (19:21)
[2023-03-05 23:00] VITALS: BP 125/68
--- NOTE | 2023-03-06 03:39 | NUR ---
SHIFT SUMMARY PT ADMITTED FROM THE ED THIS EVENING, ACCOMPANIED BY HER DAUGHTER WHOM SHE LIVES WITH. PT ADMITTED AFTER BOUTS OF N/V/D THE PAST WEEK. SHE HAS HAD NO C/O N/V SINCE BEING ON MEDICAL FLOOR. SHE DID HAVE ONE LOOSE STOOL BUT UNABLE TO COLLECT IT FOR A SPECIMEN. WILL ATTEMPT AGAIN. PT IS ON ENTERIC PRECAUTIONS IN CASE PT HAS CDIFF. SHE IS AOX4 AND SBA TO THE BATHROOM. SHE ATTEMPTED TO DRINK SOME BROTH UPON ADMIT TO THE FLOOR, SHE DRANK ABOUT 1/4 CUP. SHE HAS BEEN SLEEPING SINCE EXCEPT TO USE THE BATHROOM. SHE CALLS WELL AND MAKES HER NEEDS KNOWN. CALL LIGHT IS WITHIN REACH, BED IN THE LOWEST POSITION. WILL REPORT TO ONCOMING NURSE.
[2023-03-06 06:43] LABS: BASOPHILS PERCENT AUTO 0 % (0-2); EOSINOPHILS PERCENT AUTO 0 % (0-6); Hematocrit 28.4 % (33.0-51.0); Hemoglobin 9.4 g/dL (11.5-16.0); IMMATURE GRAN ABSOLUTE AUTO 0.04 K/mm3 (0.00-0.10); IMMATURE GRAN PERCENT AUTO 3 % (0-1); LYMPHOCYTES ABSOLUTE AUTO 0.52 K/mm3 (0.84-5.20); LYMPHOCYTES PERCENT AUTO 42 % (21-46); MONOCYTES ABSOLUTE AUTO 0.08 K/mm3 (0.16-1.47); MONOCYTES PERCENT AUTO 6 % (4-13); Mean Corpuscular HGB 27.4 pg (26.0-34.0); Mean Corpuscular HGB Conc 33.1 g/dL (31.5-36.5); Mean Corpuscular Volume 83 fL (80-100); Mean Platelet Volume 9.9 fL (9.1-12.4); NEUTROPHILS ABSOLUTE AUTO 0.61 K/mm3 (1.96-9.15); NEUTROPHILS PERCENT AUTO 49 % (41-73); RDW Coefficient Variation 15.9 % (11.7-14.2); RDW Standard Deviation 48.3 fL (35.1-46.3); Red Blood Cell Count 3.43 M/mm3 (3.80-5.20); White Blood Cell Count 1.25 K/mm3 (4.00-11.30)
[2023-03-06 06:48] LABS: Platelet Count 43 K/mm3 (150-400)
--- NOTE | 2023-03-06 06:51 | NUR ---
CRITICAL LAB VALUE NOTIFIED BY LAB OF A PLATELET COUNT OF 43. NOTIFIED PROVIDER AND RELAYED THAT THERE ARE NO S/SX OF BLEEDING. NO NEW ORDERS AT THIS TIME.
[2023-03-06 07:07] VITALS: BP 91/53
[2023-03-06 07:08] LABS: Thyroid Stimulating Hormone 17.7 uIU/mL (0.360-4.800)
[2023-03-06 07:09] LABS: Albumin, Blood 2.8 g/dL (3.4-5.0); Albumin/Globulin Ratio 0.8 (0.8-1.8); Bilirubin, Total 0.6 mg/dL (0.1-1.0); Creatinine, Blood 1.38 mg/dL (0.40-1.00); Globulin, Blood 3.6 g/dL (2.2-4.0); Potassium, Blood 4.1 mmol/L (3.5-5.5); Total Protein, Blood 6.4 g/dL (6.4-8.2)
[2023-03-06 07:10] VITALS: BP 97/61
[2023-03-06 15:45] VITALS: BP 116/91
--- NOTE | 2023-03-06 17:29 | NUR ---
SHIFT SUMMARY: PATIENT A&OX3-4. FORGETFUL AT TIMES AND EASILY REDIRECTABLE. PATIENT REPORTS OF NAUSEA BUT NO VOMITING. NAUSEA TREATED PER EMAR c ADEQUATE RELIEF. PATIENT IS CONTINENCE OF URINE AND STOOL. AMBULATES TO BATHROOM AND BACK IN BED c SBA. PATIENT WORK c PT MOBILITY TODAY. PT RECOMMENDED DC HOME c OUTPATIENT SERVICES. PATIENT HAD 2 LIQUID GREENISH BROWN MUCOUSY BM, NOT ABLE TO COLLECT SPECIMEN SAMPLE D/T MIXED c URINE, STILL AWAITING FOR STOOL SPECIMEN. PO INTAKE IS IMPROVING. DENIES GENERALIZE PAIN. RECEIVED SCHEDULED MEDS PER EMAR. VITAL SIGNS REVIEWED. PIV TO R AC INFUSING NS AT 75 MLS/HR. BED ALARM ON FOR SAFETY. CALL LIGHT IN REACH.
[2023-03-06 19:24] VITALS: BP 157/79
--- NOTE | 2023-03-07 04:19 | NUR ---
SHIFT SUMMARY NO ACUTE CHANGES TONIGHT. PT UP TO THE BATHROOM T/O, USED CALL LIGHT WELL FOR ASSISTANCE. NO BM PROVIDED TO OBTAIN FOR SAMPLE. PT'S APPETITE IMPROVING ON THE CLEAR LIQUID DIET. BED ALARM ACTIVATED FOR FALL PREVENTION. PLAN IS FOR HER TO POTENTIALLY DC LATER THIS AM. CALL LIGHT WITHIN REACH, BED IN THE LOWEST POSITION. WILL REPORT TO ONCOMING NURSE.
[2023-03-07 06:41] LABS: Hematocrit 28.7 % (33.0-51.0); Hemoglobin 9.5 g/dL (11.5-16.0); Mean Corpuscular HGB 28.1 pg (26.0-34.0); Mean Corpuscular HGB Conc 33.1 g/dL (31.5-36.5); Mean Corpuscular Volume 85 fL (80-100); Mean Platelet Volume 9.5 fL (9.1-12.4); RDW Coefficient Variation 16.2 % (11.7-14.2); RDW Standard Deviation 50.2 fL (35.1-46.3); Red Blood Cell Count 3.38 M/mm3 (3.80-5.20); White Blood Cell Count 1.04 K/mm3 (4.00-11.30)
[2023-03-07 06:58] LABS: Adenovirus F 40/41 Not Detected (NOT DETECT); Astrovirus Not Detected (NOT DETECT); Campylobacter Sp Not Detected (NOT DETECT); Cryptosporidium Not Detected (NOT DETECT); Cyclospora Cayetanensis Not Detected (NOT DETECT); E. Coli O157 Not Detected (NOT DETECT); Entamoeba Histolytica Not Detected (NOT DETECT); Enteroaggregative E. coli-EAEC Not Detected (NOT DETECT); Enteropathogenic E. coli-EPEC Not Detected (NOT DETECT); Enterotoxigenic E. coli-ETEC Not Detected (NOT DETECT); Giardia Lamblia Not Detected (NOT DETECT); Norovirus GI/GII Not Detected (NOT DETECT); Plesiomonas Shigelloides Not Detected (NOT DETECT); Rotavirus A Not Detected (NOT DETECT); Salmonella Sp Not Detected (NOT DETECT); Sapovirus Not Detected (NOT DETECT); Shiga Toxin-prod E. coli-STEC Not Detected (NOT DETECT); Shigella/Enteroin E. coli-EIEC Not Detected (NOT DETECT); Vibrio Cholerae Not Detected (NOT DETECT); Vibrio Sp Not Detected (NOT DETECT); Yersinia Enterocolitica Not Detected (NOT DETECT)
[2023-03-07 07:02] LABS: Platelet Count 27 K/mm3 (150-400)
[2023-03-07 07:04] LABS: Magnesium, Blood 1.6 mg/dL (1.6-2.4)
[2023-03-07 07:05] LABS: Albumin, Blood 2.9 g/dL (3.4-5.0); Albumin/Globulin Ratio 0.8 (0.8-1.8); Bilirubin, Total 0.7 mg/dL (0.1-1.0); Bun/Creatinine Ratio 10.6 (12.0-20.0); Calcium, Blood 7.9 mg/dL (8.5-10.1); Creatinine, Blood 1.13 mg/dL (0.40-1.00); Globulin, Blood 3.6 g/dL (2.2-4.0); Phosphorus, Blood 1.6 mg/dL (2.5-4.9); Potassium, Blood 3.9 mmol/L (3.5-5.5); Total Protein, Blood 6.5 g/dL (6.4-8.2)
[2023-03-07 07:22] VITALS: BP 170/95
[2023-03-07 07:25] LABS: BAND PERCENT MAN 10 % (0-8); BASOPHILS PERCENT MAN 0 % (0-2); EOSINOPHILS PERCENT MAN 0 % (0-6); LYMPHOCYTES ABSOLUTE MAN 0.43 K/mm3 (0.84-5.20); LYMPHOCYTES PERCENT MAN 42 % (21-46); MONOCYTES ABSOLUTE MAN 0.02 K/mm3 (0.16-1.47); MONOCYTES PERCENT MAN 2 % (4-13); NEUTROPHILS ABSOLUTE MAN 0.58 K/mm3 (1.96-9.15); SEG NEUTROPHILS PERCENT MAN 46 % (41-73); TOTAL CELLS COUNTED 50
--- NOTE | 2023-03-07 08:00 | NUR ---
THIS RN CALLED DR. BARRIENTOS TWICE WITH NO ANSWER. RN CALLED DR. EDWARD AND REPORTED A CRITICAL OF PLATELETS OF 27 THIS MORNING. RN ALSO REPORTED BP OF 170/95. ACCETPTED CRITICAL AND SAID TO RE CHECK BP IN A WHILE.
[2023-03-07 09:29] VITALS: BP 170/92
[2023-03-07 15:18] VITALS: BP 138/68
--- NOTE | 2023-03-07 18:13 | NUR ---
SUMMARY- NO ACUTE EVENTS THIS SHIFT. PT IS AAOX4 BUT HAS STM-FORGETFUL. CALM AND APPROPRIATE. X1 ASSIST/SBA. PT WALKED THE OBREGON X2 THIS SHIFT W/WALKER.
--- NOTE | 2023-03-07 18:23 | NUR ---
SUMMARY CONTINUED- PT HAS ONLY HAD X1 LOOSE STOOL THIS SHIFT. PT HAS BEEN GIVEN X2 DOSES OF IMODIUM THIS SHIFT.
[2023-03-07 20:42] VITALS: BP 125/67
[2023-03-08 03:48] VITALS: BP 158/77
--- NOTE | 2023-03-08 03:49 | NUR ---
SHIFT UNREMARKABLE. PT TOOK ABX WITHOUT DIFFICULTY. NS RUNNING THROUGHOUT SHIFT. PT HAS SLEPT THROUGH MUCH OF SHIFT. AWAKES OCCASIONALLY TO USE RESTROOM. STEADY SBA TO BATHROOM. SHIFT OTHERWISE UNREMARKABLE. AOX4, PLEASANT, COOPERATIVE WITH CARE. BED LOCKED IN LOWEST POSITION. CALL LIGHT LEFT WITHIN REACH.
[2023-03-08 07:06] VITALS: BP 187/77
[2023-03-08 09:19] VITALS: BP 163/73
[2023-03-08 09:20] VITALS: BP 128/80
[2023-03-08 15:42] VITALS: BP 157/68
--- NOTE | 2023-03-08 18:14 | NUR ---
SUMMARY- NO ACUTE EVENTS THIS SHIFT. PT HAS HAD X1 EPISODE OF LOOSE STOOLS THIS SHIFT AND X1 DOSE OF IMODIUM THIS SHIFT. PT WALKING THE HALLSX1 THIS SHIFT. AAOX4 BUT FORGETFUL.
[2023-03-08 21:01] VITALS: BP 144/73
--- NOTE | 2023-03-09 00:29 | NUR ---
UPON ATTEMPTING TO ADMINISTER 0000 ABX, PT LAC IV . PULLED. ILA SEVILLA RN ATTEMPTED TO PUT NEW ONE IN AND WAS UNSUCCESSFUL. PT IS NOW REFUSING FURTHER IV PLACEMENT. PLAN IS FOR HER TO DC TODAY. ATTEMPTED TO CALL HOSPITALIST DR. BRISENO 3 TIMES OVER SPAN OF 16 MINUTES ATTEMPTING TO REACH BEFORE [facility] DOW[facility] LASTING REMAINDER OF SHIFT. NO ANSWER ON ANY ATTEMPT. WILL ATTEMPT AGAIN SOON.
[2023-03-09 06:15] VITALS: BP 108/60
[2023-03-09 07:17] VITALS: BP 134/63
[2023-03-09 08:01] LABS: Hematocrit 26.4 % (33.0-51.0); Hemoglobin 9.1 g/dL (11.5-16.0); Mean Corpuscular HGB 28.3 pg (26.0-34.0); Mean Corpuscular HGB Conc 34.5 g/dL (31.5-36.5); Mean Corpuscular Volume 82 fL (80-100); RDW Coefficient Variation 15.6 % (11.7-14.2); RDW Standard Deviation 47.4 fL (35.1-46.3); Red Blood Cell Count 3.21 M/mm3 (3.80-5.20)
[2023-03-09 08:21] LABS: Platelet Count 4 K/mm3 (150-400)
[2023-03-09 08:23] LABS: Albumin, Blood 2.9 g/dL (3.4-5.0); Albumin/Globulin Ratio 0.9 (0.8-1.8); Bilirubin, Total 0.4 mg/dL (0.1-1.0); Bun/Creatinine Ratio 12.3 (12.0-20.0); Calcium, Blood 8.3 mg/dL (8.5-10.1); Creatinine, Blood 1.14 mg/dL (0.40-1.00); Globulin, Blood 3.3 g/dL (2.2-4.0); Phosphorus, Blood 1.9 mg/dL (2.5-4.9); Potassium, Blood 3.6 mmol/L (3.5-5.5); Total Protein, Blood 6.2 g/dL (6.4-8.2)
[2023-03-09 08:31] LABS: White Blood Cell Count 0.66 K/mm3 (4.00-11.30)
[2023-03-09 09:09] LABS: BASOPHILS PERCENT MAN 0 % (0-2); EOSINOPHILS PERCENT MAN 0 % (0-6); LYMPHOCYTES ABSOLUTE MAN 0.39 K/mm3 (0.84-5.20); LYMPHOCYTES PERCENT MAN 60 % (21-46); MONOCYTES ABSOLUTE MAN 0.07 K/mm3 (0.16-1.47); MONOCYTES PERCENT MAN 12 % (4-13); NEUTROPHILS ABSOLUTE MAN 0.18 K/mm3 (1.96-9.15); SEG NEUTROPHILS PERCENT MAN 28 % (41-73); TOTAL CELLS COUNTED 25
[2023-03-09 12:33] VITALS: BP 127/80
--- NOTE | 2023-03-09 12:33 | NUR ---
Palliative Care referral received from CM and VO entered per EFM . I reviewed EMR, called Dr Gauthier' office with an update and met with pt/khushbu in her room. Pt appears to be a young 82 year old. She and her khushbu describe a lifetime of being very active and healthy prior to pt's cancer dx. She has metastatic uterine cancer per H&P. She is in active tx with Dr Gauthier. She was confused on admission but is alert and oriented x4 now. Pt missed a tx at oncologists yesterday per khushbu and she received a call from their office stating Dr Gauthier is going to try to see pt at the hospital today. We discussed advanced care planning, goals of care and pt's quality of life. She has good help at home with her khushbu, there also and a son who lives locally also. We talked about pt's initial confusion and the level of intervention she would desire if she were unable to communicate clearly with us. In the ER she stated that she would want CPR. She asked some good questions about what happens during and after CPR. She is clear that she wants full tx to prolong her life in relationship to her cancer as long as she continues to enjoy a good quality of life for the most part. Pt was given some information to review with her family and to help answer some of her questions re: risks with CPR and intubation both verbally and booklet "Hard Choices for [place] People". I asked pt and khushbu to further discuss with pt's PCP and providers whether invasive rescusitation would be recommended if pt's condition declined despite full treatment and attempts at preventing a code. Pt and khushbu receptive and interested in this ongoing consideration and conversation. Pt did not demonstrate or report s/s of pain, nausea, anxiety or distress during my visit. RN came in to assess/care for pt at the end of my visit.
[2023-03-09 14:02] VITALS: BP 138/68
--- NOTE | 2023-03-09 16:20 | NUR ---
SHIFT NOTE PLATELET TRANSFUION COMPLETE. PT TOLERATED WELL WITH NO S/S OF TRANSFUSION REACTION NOTED. VSS. UP AMBULATING IN HALLWAY WITH FWW. GAIT STEADY. NEUTROPENIC PRECAUTIONS INITIATED. DR BARRIENTOS HERE. RIGHT CHEST MEDIPORT ACCESSED. PT TOLERATED ACCESS WELL. DAUGHTER AT BEDSIDE. DR MUNIZ CONSULT CALLED TO [facility] PER ORDER. [facility] HAS VISITED WITH PT/FAMILY. CONTINUE POC.
[2023-03-09 19:27] VITALS: BP 132/68
[2023-03-10 03:12] VITALS: BP 119/74
--- NOTE | 2023-03-10 04:00 | NUR ---
SHIFT HAS BEEN LARGELY UNREMARKABLE. REMAINS FREE OF COMPLAINTS. TRANSFERRING WELL WITHIN ROOM INDEPENDENTLY, STEADY ON FEET WITH FWW ASSISTANCE. FEW LOOSE RUNNY STOOLS. ADMINISTERED PRN IMODIUM TWICE. AOX4, PLEASANT, COOPERATIVE WITH CARE THROUGHOUT SHIFT. NEUTROPENIC PRECAUTIONS IN PLACE. BED LOCKED IN LOWEST POSITION. CALL LIGHT LEFT WITHIN REACH.
[2023-03-10 06:06] LABS: Hematocrit 25.4 % (33.0-51.0); Hemoglobin 8.6 g/dL (11.5-16.0); Mean Corpuscular HGB 28.1 pg (26.0-34.0); Mean Corpuscular HGB Conc 33.9 g/dL (31.5-36.5); Mean Corpuscular Volume 83 fL (80-100); Mean Platelet Volume 9.8 fL (9.1-12.4); RDW Coefficient Variation 15.9 % (11.7-14.2); RDW Standard Deviation 48.5 fL (35.1-46.3); Red Blood Cell Count 3.06 M/mm3 (3.80-5.20)
[2023-03-10 06:18] LABS: Platelet Count 46 K/mm3 (150-400)
[2023-03-10 06:49] LABS: Calcium, Blood 8.7 mg/dL (8.5-10.1); Creatinine, Blood 1.25 mg/dL (0.40-1.00); Potassium, Blood 3.5 mmol/L (3.5-5.5)
[2023-03-10 06:59] LABS: BASOPHILS PERCENT MAN 0 % (0-2); EOSINOPHILS PERCENT MAN 0 % (0-6); LYMPHOCYTES % ATYPICAL MANUAL 4 % (0-0); LYMPHOCYTES ABSOLUTE MAN 0.48 K/mm3 (0.84-5.20); LYMPHOCYTES PERCENT MAN 76 % (21-46); MONOCYTES PERCENT MAN 0 % (4-13); NEUTROPHILS ABSOLUTE MAN 0.12 K/mm3 (1.96-9.15); SEG NEUTROPHILS PERCENT MAN 20 % (41-73); TOTAL CELLS COUNTED 25
[2023-03-10 07:51] VITALS: BP 127/59
[2023-03-10 15:34] VITALS: BP 134/68
[2023-03-10 19:53] VITALS: BP 146/69
[2023-03-11 05:11] VITALS: BP 126/71
[2023-03-11 07:31] VITALS: BP 155/65
[2023-03-11 07:47] LABS: Albumin/Globulin Ratio 0.9 (0.8-1.8); Bilirubin, Total 0.5 mg/dL (0.1-1.0); Bun/Creatinine Ratio 11.8 (12.0-20.0); Calcium, Blood 8.4 mg/dL (8.5-10.1); Creatinine, Blood 1.27 mg/dL (0.40-1.00); Globulin, Blood 3.3 g/dL (2.2-4.0); Potassium, Blood 3.9 mmol/L (3.5-5.5); Total Protein, Blood 6.3 g/dL (6.4-8.2)
[2023-03-11 09:14] LABS: Hematocrit 26.8 % (33.0-51.0); Mean Corpuscular HGB Conc 33.6 g/dL (31.5-36.5); Mean Corpuscular Volume 83 fL (80-100); Mean Platelet Volume 9.5 fL (9.1-12.4); RDW Coefficient Variation 15.6 % (11.7-14.2); RDW Standard Deviation 47.5 fL (35.1-46.3); Red Blood Cell Count 3.22 M/mm3 (3.80-5.20)
[2023-03-11 09:16] LABS: BASOPHILS PERCENT AUTO 0 % (0-2); EOSINOPHILS PERCENT AUTO 0 % (0-6); IMMATURE GRAN ABSOLUTE AUTO 0.04 K/mm3 (0.00-0.10); IMMATURE GRAN PERCENT AUTO 6 % (0-1); LYMPHOCYTES ABSOLUTE AUTO 0.53 K/mm3 (0.84-5.20); LYMPHOCYTES PERCENT AUTO 76 % (21-46); MONOCYTES ABSOLUTE AUTO 0.05 K/mm3 (0.16-1.47); MONOCYTES PERCENT AUTO 7 % (4-13); NEUTROPHILS ABSOLUTE AUTO 0.08 K/mm3 (1.96-9.15); NEUTROPHILS PERCENT AUTO 12 % (41-73)
[2023-03-11 09:19] LABS: Platelet Count 27 K/mm3 (150-400)
[2023-03-11 15:12] VITALS: BP 104/54
--- NOTE | 2023-03-11 17:06 | NUR ---
SHIFT SUMMARY MS PRIEST IS UP AMBULATING IN THE ROOM AND HER DAUGHTER TOOK HER OUTSIDE FOR SOME SUNSHINE THERAPY. DENIES PAIN. LOOSE STOOL X 1 THIS AM. NO CONFUSION.
[2023-03-11 20:01] VITALS: BP 143/62
[2023-03-12 05:39] VITALS: BP 122/60
[2023-03-12 07:08] VITALS: BP 113/73
[2023-03-12 12:10] LABS: Hematocrit 24.3 % (33.0-51.0); Mean Corpuscular HGB 27.7 pg (26.0-34.0); Mean Corpuscular HGB Conc 32.9 g/dL (31.5-36.5); Mean Corpuscular Volume 84 fL (80-100); RDW Coefficient Variation 15.3 % (11.7-14.2); RDW Standard Deviation 46.7 fL (35.1-46.3); Red Blood Cell Count 2.89 M/mm3 (3.80-5.20)
[2023-03-12 12:24] LABS: Platelet Count 17 K/mm3 (150-400); White Blood Cell Count 0.47 K/mm3 (4.00-11.30)
[2023-03-12 12:34] LABS: BASOPHILS PERCENT MAN 0 % (0-2); EOSINOPHILS PERCENT MAN 0 % (0-6); LYMPHOCYTES % ATYPICAL MANUAL 4 % (0-0); LYMPHOCYTES ABSOLUTE MAN 0.37 K/mm3 (0.84-5.20); LYMPHOCYTES PERCENT MAN 76 % (21-46); MONOCYTES ABSOLUTE MAN 0.03 K/mm3 (0.16-1.47); MONOCYTES PERCENT MAN 8 % (4-13); NEUTROPHILS ABSOLUTE MAN 0.05 K/mm3 (1.96-9.15); SEG NEUTROPHILS PERCENT MAN 12 % (41-73); TOTAL CELLS COUNTED 25
[2023-03-12 15:27] VITALS: BP 116/55
--- NOTE | 2023-03-12 15:39 | NUR ---
SHIFT SUMMARY MS PRIEST SAID THAT SHE FEELS LIKE HER STOMACHE IS UPSET. SHE HAS NOT HAD A LOOSE STOOL SINCE 0800. GENERAL NAUSEA, GIVEN PO ZOFRAN WITH LITTLE HELP, NOW SIPPING ON LEMON LYTTON SODA. HER DAUGHTER HAS BEEN WITH HER FOR MUCH OF THE DAY AND IS VERY SUPPORTIVE. SHE HAS BEEN AMBULATING INDEPENDENTLTY WITH STEADY GAIT IN THE ROOM. BED LOW, CALL LIGHT IN REACH.
[2023-03-12 19:41] VITALS: BP 139/66
[2023-03-13] VITALS (8 sets, daily range): BP systolic 124–169; BP diastolic 62–84
[2023-03-13 05:54] LABS: Hematocrit 23.8 % (33.0-51.0); Hemoglobin 7.9 g/dL (11.5-16.0); Mean Corpuscular HGB 28.1 pg (26.0-34.0); Mean Corpuscular HGB Conc 33.2 g/dL (31.5-36.5); Mean Corpuscular Volume 85 fL (80-100); Mean Platelet Volume 9.5 fL (9.1-12.4); RDW Coefficient Variation 15.5 % (11.7-14.2); Red Blood Cell Count 2.81 M/mm3 (3.80-5.20)
[2023-03-13 05:55] LABS: BASOPHILS PERCENT AUTO 0 % (0-2); EOSINOPHILS PERCENT AUTO 0 % (0-6); IMMATURE GRAN PERCENT AUTO 0 % (0-1); LYMPHOCYTES ABSOLUTE AUTO 0.44 K/mm3 (0.84-5.20); LYMPHOCYTES PERCENT AUTO 79 % (21-46); MONOCYTES ABSOLUTE AUTO 0.04 K/mm3 (0.16-1.47); MONOCYTES PERCENT AUTO 7 % (4-13); NEUTROPHILS ABSOLUTE AUTO 0.08 K/mm3 (1.96-9.15); NEUTROPHILS PERCENT AUTO 14 % (41-73)
[2023-03-13 05:58] LABS: Platelet Count 12 K/mm3 (150-400)
[2023-03-13 05:59] LABS: White Blood Cell Count 0.56 K/mm3 (4.00-11.30)
--- NOTE | 2023-03-13 15:01 | NUR ---
SHIFT SUMMARY MS PRIEST HAS HAD A SMALL AMOUNT OF DIARRHEA TODAY. C/O GENERAL ABDOMINAL ACHE AND "JUST NOT FEELING RIGHT", MILD NAUSEA. DECLINES ZOFRAN. POOR APPETITE. 1UNIT PLATELETS INFUSED, TOLERATED WELL WITH NO CONCERNS. UP INDEPENDENTLY IN HER ROOM. CALL LIGHT IN REACH.
--- NOTE | 2023-03-13 18:24 | NUR ---
RN NOTE SMALL SEMI-FORMED BROWN STOOL THIS AFTERNOON.
--- NOTE | 2023-03-14 03:38 | NUR ---
SHIFT SUMMARY PATIENT ADMIT FOR GASTROENTERITIS. UNDER CURRENT NEUTROPENIC PRECAUTIONS. LAST CHEMO RECEIVED 03/01/23. TAKES MEDS WHOLE WITH WATER. INDEPENDENT/STANDBY ASSIST. HAD CRITICAL LOWS IN PH (12) AND WBC (0.56). PATIENT HAS MEDIPORT IN PLACE. SHE SLEPT MOST OF THE NIGHT AND WAS PLEASANT UPON WAKING.
[2023-03-14 05:15] VITALS: BP 149/63
[2023-03-14 05:56] LABS: Hematocrit 24.4 % (33.0-51.0); Hemoglobin 8.2 g/dL (11.5-16.0); Mean Corpuscular HGB 28.3 pg (26.0-34.0); Mean Corpuscular HGB Conc 33.6 g/dL (31.5-36.5); Mean Corpuscular Volume 84 fL (80-100); Mean Platelet Volume 10.8 fL (9.1-12.4); Platelet Count 56 K/mm3 (150-400); RDW Coefficient Variation 15.2 % (11.7-14.2); RDW Standard Deviation 46.9 fL (35.1-46.3)
[2023-03-14 06:00] LABS: BASOPHILS PERCENT AUTO 0 % (0-2); EOSINOPHILS PERCENT AUTO 0 % (0-6); IMMATURE GRAN ABSOLUTE AUTO 0.03 K/mm3 (0.00-0.10); IMMATURE GRAN PERCENT AUTO 5 % (0-1); LYMPHOCYTES ABSOLUTE AUTO 0.47 K/mm3 (0.84-5.20); LYMPHOCYTES PERCENT AUTO 75 % (21-46); MONOCYTES ABSOLUTE AUTO 0.07 K/mm3 (0.16-1.47); MONOCYTES PERCENT AUTO 11 % (4-13); NEUTROPHILS ABSOLUTE AUTO 0.06 K/mm3 (1.96-9.15); NEUTROPHILS PERCENT AUTO 10 % (41-73)
[2023-03-14 06:02] LABS: White Blood Cell Count 0.63 K/mm3 (4.00-11.30)
[2023-03-14 07:30] VITALS: BP 149/72
[2023-03-14 16:11] VITALS: BP 155/75
--- NOTE | 2023-03-14 16:52 | NUR ---
SHIFT SUMMARY PT UP TO BTHRM DURING SHIFT REPORT. INDEPENDENT IN RM AND TO BTHRM USING FWW. PER REPORT, PT HAD C/O DIARRHEA UPON ADMISSION R/T CHEMO. STOOL SOFT, BUT NO LONGER DIARRHEA. PT'S DAUGHTER TO THIS AM TO VISIT. DR EARL ALSO IN THIS AM TO SEE PT AND DISCUSS PLAN OF CARE WITH PT AND DAUGHTER. NEW ORDERS PLACED. PT IMPROVING, BUT NEEDING WBC'S TO IMPROVE FURTHER. PT IS PLEASANT AND CO-OP. NO C/O. CALL LT IN REACH.
[2023-03-14 17:51] LABS: Adenovirus F 40/41 Not Detected (NOT DETECT); Astrovirus Not Detected (NOT DETECT); Campylobacter Sp Not Detected (NOT DETECT); Cryptosporidium Not Detected (NOT DETECT); Cyclospora Cayetanensis Not Detected (NOT DETECT); E. Coli O157 Not Detected (NOT DETECT); Entamoeba Histolytica Not Detected (NOT DETECT); Enteroaggregative E. coli-EAEC Not Detected (NOT DETECT); Enteropathogenic E. coli-EPEC Not Detected (NOT DETECT); Enterotoxigenic E. coli-ETEC Not Detected (NOT DETECT); Giardia Lamblia Not Detected (NOT DETECT); Norovirus GI/GII Not Detected (NOT DETECT); Plesiomonas Shigelloides Not Detected (NOT DETECT); Rotavirus A Not Detected (NOT DETECT); Salmonella Sp Not Detected (NOT DETECT); Sapovirus Not Detected (NOT DETECT); Shiga Toxin-prod E. coli-STEC Not Detected (NOT DETECT); Shigella/Enteroin E. coli-EIEC Not Detected (NOT DETECT); Vibrio Cholerae Not Detected (NOT DETECT); Vibrio Sp Not Detected (NOT DETECT); Yersinia Enterocolitica Not Detected (NOT DETECT)
[2023-03-14 22:07] VITALS: BP 133/57
--- NOTE | 2023-03-15 04:59 | NUR ---
SHIFT SUMMARY: PT A&O X4. PT PLEASANT AND COOPERATIVE WITH ALL CARE. NO ACUTE CHANGES WITH PT THIS SHIFT. PT WAS ABLE TO SLEEP DURING THE NIGHT. PT INDEPENDENT IN ROOM. NO COMPLAINTS OF DIARRHEA THIS SHIFT. PT SLIGHTLY NAUSEOUS AT START OF SHIFT. PT REFUSED ZOFRAN BUT WAS ABLE TO TOLERATE CARBONATED SODA. AWAITING RESULTS OF MORNING LABS. CALL LIGHT IN REACH. BED IN LOWEST POSITION. WILL CONTINUE TO MONITOR.
[2023-03-15 05:07] LABS: Hematocrit 24.1 % (33.0-51.0); Mean Corpuscular HGB Conc 33.2 g/dL (31.5-36.5); Mean Corpuscular Volume 84 fL (80-100); Mean Platelet Volume 10.7 fL (9.1-12.4); RDW Coefficient Variation 15.1 % (11.7-14.2); RDW Standard Deviation 46.9 fL (35.1-46.3); Red Blood Cell Count 2.86 M/mm3 (3.80-5.20)
[2023-03-15 05:21] LABS: Platelet Count 40 K/mm3 (150-400)
[2023-03-15 05:22] LABS: White Blood Cell Count 0.92 K/mm3 (4.00-11.30)
[2023-03-15 05:33] LABS: Albumin, Blood 2.9 g/dL (3.4-5.0); Albumin/Globulin Ratio 0.8 (0.8-1.8); Bilirubin, Total 0.4 mg/dL (0.1-1.0); Bun/Creatinine Ratio 16.3 (12.0-20.0); Creatinine, Blood 1.29 mg/dL (0.40-1.00); Globulin, Blood 3.7 g/dL (2.2-4.0); Magnesium, Blood 1.8 mg/dL (1.6-2.4); Phosphorus, Blood 2.7 mg/dL (2.5-4.9); Potassium, Blood 4.6 mmol/L (3.5-5.5); Total Protein, Blood 6.6 g/dL (6.4-8.2)
[2023-03-15 06:28] LABS: BASOPHILS PERCENT MAN 0 % (0-2); EOSINOPHILS PERCENT MAN 0 % (0-6); LYMPHOCYTES ABSOLUTE MAN 0.84 K/mm3 (0.84-5.20); LYMPHOCYTES PERCENT MAN 92 % (21-46); MONOCYTES PERCENT MAN 0 % (4-13); NEUTROPHILS ABSOLUTE MAN 0.07 K/mm3 (1.96-9.15); SEG NEUTROPHILS PERCENT MAN 8 % (41-73); TOTAL CELLS COUNTED 25
[2023-03-15 07:18] VITALS: BP 136/52
[2023-03-15 09:54] VITALS: BP 125/65
[2023-03-15 10:30] VITALS: BP 133/64
[2023-03-15 15:57] VITALS: BP 118/57
--- NOTE | 2023-03-15 17:49 | NUR ---
SHIFT SUMMARY PT AWAKE AT START OF SHIFT. DAUGHTER IN AGAIN EARLY TO SEE PT AND WAIT FOR DR EARL. NEW ORDERS PLACED. PT RECEIVED 1 MORE UNIT OF PLATELETS THIS AM. PT WANTING TO GO HOME, BUT WILL STAY UNTIL TUESDAY, PER PT. EATING BETTER EACH DAY. UP INDEPENDENTLY IN RM AND WALKING HALLS USING FWW. NO C/O. DENIED FURTHER NEEDS. CALL LT IN REACH.
[2023-03-15 21:41] VITALS: BP 110/67
[2023-03-16] VITALS (10 sets, daily range): BP systolic 102–135; BP diastolic 45–79
--- NOTE | 2023-03-16 04:21 | NUR ---
SHIFT SUMMARY: PT A&O X4. PT HAS BEEN PLEASANT AND COOPERATIVE WITH ALL CARE. PT INDEPENDENT IN ROOM. PT MEDIPORT IN RIGHT UPPER CHEST W/O COMPLICATIONS AND HEPARIN LOCKED. PT C/O SLIGHT CHEST PAIN EARLY THIS SHIFT. OBTAINED VITALS AND LISTENED TO CHEST. TOLD PT IF CHEST PAIN STARTS TO GET ANY WORSE TO LET ME KNOW. PT HAS NOT C.O PAIN SINCE CONVERSATION. PT ANXIOUS TO GO HOME TODAY BUT PER DAY SHIFT REPORT, LIKELY WILL NOT BE UNTIL TUESDAY. MORNING LABS NOT YET DRAWN FOR WBC AND PLATELET RESULTS. PT RECEIVED ONE UNIT OF PLATELETS ON DAY SHIFT. NO C/O NAUSEA OR DIARRHEA. CALL LIGHT IN REACH. BED IN LOWEST POSITION. WILL CONTINUE TO MONITOR.
[2023-03-16 05:33] LABS: Hematocrit 22.5 % (33.0-51.0); Hemoglobin 7.6 g/dL (11.5-16.0); Mean Corpuscular HGB 28.5 pg (26.0-34.0); Mean Corpuscular HGB Conc 33.8 g/dL (31.5-36.5); Mean Corpuscular Volume 84 fL (80-100); Mean Platelet Volume 10.2 fL (9.1-12.4); Platelet Count 91 K/mm3 (150-400); RDW Coefficient Variation 15.4 % (11.7-14.2); RDW Standard Deviation 47.4 fL (35.1-46.3); Red Blood Cell Count 2.67 M/mm3 (3.80-5.20); White Blood Cell Count 1.24 K/mm3 (4.00-11.30)
[2023-03-16 06:00] LABS: Bun/Creatinine Ratio 18.1 (12.0-20.0); Calcium, Blood 8.4 mg/dL (8.5-10.1); Creatinine, Blood 1.27 mg/dL (0.40-1.00); Potassium, Blood 4.3 mmol/L (3.5-5.5)
--- NOTE | 2023-03-16 06:08 | NUR ---
PT STATED WHEN SHE WAS WALKING TO RESTROOM SHE BEGAN TO FEEL SHARP PRESSURE RESULTING IN CHEST PAIN. CALLED DR. ESPINOSA. STAT DOSE OF NITRO ORDERED AND GIVEN PLUS ROUTINE NITRO PRN. STAT EKG PERFORMED BY LOCKSMITH APPRENTICE. TROPONIN ORDERED. WILL CONTINUE TO ASSESS PT.
[2023-03-16 06:35] LABS: BAND PERCENT MAN 8 % (0-8); BASOPHILS PERCENT MAN 0 % (0-2); EOSINOPHILS PERCENT MAN 0 % (0-6); LYMPHOCYTES ABSOLUTE MAN 0.62 K/mm3 (0.84-5.20); LYMPHOCYTES PERCENT MAN 50 % (21-46); MONOCYTES ABSOLUTE MAN 0.07 K/mm3 (0.16-1.47); MONOCYTES PERCENT MAN 6 % (4-13); MYELOCYTE ABSOLUTE MAN 0.02 K/mm3 (0.00-0.00); MYELOCYTE PERCENT MAN 2 % (0-0); NEUTROPHILS ABSOLUTE MAN 0.52 K/mm3 (1.96-9.15); SEG NEUTROPHILS PERCENT MAN 34 % (41-73); TOTAL CELLS COUNTED 50
--- NOTE | 2023-03-16 14:48 | NUR ---
PT AT 1311 HAD DAUGHTER TAKE HER FOR A WALK AND HER DAUGHTER CAME AND GOT THIS TOURIST CAMP ATTENDANT TO GET PT WITH WHEELCHAIR PT GOT TO ELEVATORS AND STATED HER CHEST FELT TIGHT. PT WAS BROUGHT BACK TO ROOM AND REPORTED FEELING BETTER AFTER RECIEVING A NITRO STATING PAIN WAS RESOLVED. AT 1030 DAUGHTER CALLED FOR ASSISTANCE IN RESTROOM. PLEASE REFER TO CURED MEAT PACKING SUPERVISOR.
--- NOTE | 2023-03-16 18:05 | NUR ---
PT AOX4 AND COOPERATIVE OF CARE. PT DID HAVE ANOTHER BOUT OF CHEST PAIN AND BACK DISCOMFORT. DR EARL ADDED MEDICATION TO EMAR AND LABS. PT TREATED PER EMAR. PT STATES HER PAIN HAS IMPROVED FROM A 10 TO A 3 NOW. FAMILY IS WITH PT. WILL CONTINUE TO MONITOR. CALL LIGHT WITHIN REACH.
[2023-03-16 19:05] LABS: Hematocrit 27.2 % (33.0-51.0); Hemoglobin 9.1 g/dL (11.5-16.0)
[2023-03-17 02:48] VITALS: BP 127/63
--- NOTE | 2023-03-17 04:16 | NUR ---
SHIFT SUMMERY, PT RESTING ON AND OFF DURING THE NIGHT. PT DENIED ANY CP BUT DID C/O BACK PAIN PT WAS MEDICATED, BROUGHT ICE PACKS AND HAD A HEATING PAD ALSO. PT NOT HAVING ANYMORE SYNCOPY EPISODES OR ANY OTHER PROB EXCEPT BACK PAIN. PT UP AND ABULATES TO DOOR INTEAD OF USING CALL LIGHT. PT APPEARS STEADY ON HER FEET. CALL LIGHT IN REACH.
[2023-03-17 06:38] LABS: Hematocrit 25.9 % (33.0-51.0); Hemoglobin 8.7 g/dL (11.5-16.0); Mean Corpuscular HGB 28.2 pg (26.0-34.0); Mean Corpuscular HGB Conc 33.6 g/dL (31.5-36.5); Mean Corpuscular Volume 84 fL (80-100); Mean Platelet Volume 9.6 fL (9.1-12.4); Platelet Count 59 K/mm3 (150-400); RDW Coefficient Variation 15.7 % (11.7-14.2); RDW Standard Deviation 47.8 fL (35.1-46.3); Red Blood Cell Count 3.08 M/mm3 (3.80-5.20); White Blood Cell Count 3.39 K/mm3 (4.00-11.30)
[2023-03-17 06:52] LABS: Bun/Creatinine Ratio 17.3 (12.0-20.0); Calcium, Blood 8.6 mg/dL (8.5-10.1); Creatinine, Blood 1.39 mg/dL (0.40-1.00); Potassium, Blood 4.6 mmol/L (3.5-5.5)
[2023-03-17 07:32] VITALS: BP 113/42
[2023-03-17 12:32] LABS: BAND PERCENT MAN 15 % (0-8); BASOPHILS PERCENT MAN 0 % (0-2); EOSINOPHILS PERCENT MAN 0 % (0-6); LYMPHOCYTES ABSOLUTE MAN 1.11 K/mm3 (0.84-5.20); LYMPHOCYTES PERCENT MAN 33 % (21-46); MONOCYTES ABSOLUTE MAN 0.44 K/mm3 (0.16-1.47); MONOCYTES PERCENT MAN 13 % (4-13); NEUTROPHILS ABSOLUTE MAN 1.62 K/mm3 (1.96-9.15); OTHER CELL PERCENT MAN 4 % (0-0); PROMYELOCYTE ABSOLUTE MAN 0.06 K/mm3 (0.00-0.00); PROMYELOCYTE PERCENT MAN 2 % (0-0); SEG NEUTROPHILS PERCENT MAN 33 % (41-73); TOTAL CELLS COUNTED 100
[2023-03-17] MEDS ORDERED: OMEP20ER PO (12:37)
[2023-03-17] MEDS ORDERED: LEVSOD100 PO (12:43)
[2023-03-17] MEDS ORDERED: AZIT500 PO (12:44)
[2023-03-17] MEDS ORDERED: VISBIOME 112.51 EACH PO (12:44)
[2023-03-17] MEDS ORDERED: Acetaminophen325 M1 PO (12:45)
[2023-03-17] MEDS ORDERED: ASPI81CH PO (12:46)
--- NOTE | 2023-03-17 13:23 | NUR ---
PATIENT DISCHARGED TO HOME ACCOMPANIED BY HER DAUGHTER. [facility] DEACCESSED PER PROTOCOL AND PT TOLERATED WELL. VERBALIZED UNDERSTANDING OF D/C INSTRUCTIONS. OFF UNIT VIA W/C AT 1315. NO PERSONAL BELONGINGS LEFT BEHIND IN ROOM.
== END 2023-03-17 13:20 | disposition home or self-care (01) | DRG 371 ==
LOC: ER 11:25 → MEDS 11:26 → ENPENDDIS 03-16 13:26 → MEDS 03-17 13:20
PROVIDERS: Hospitalist; Internal Medicine; Student in an Organized Health Care Education/Training Program; ADMIT Internal Medicine
PROC: 30233N1 Transfusion of Nonautologous Red Blood Cells into Peripheral Vein, Percutaneous Approach (ICD-10-PCS; principal; 2023-03-13)
PROC: 30233R1 Transfusion of Nonautologous Platelets into Peripheral Vein, Percutaneous Approach (ICD-10-PCS; 2023-03-13)
DX: A04.5 Campylobacter enteritis (principal); D61.810 Antineoplastic chemotherapy induced pancytopenia; G92.8 Other toxic encephalopathy; I42.9 Cardiomyopathy, unspecified; N39.0 Urinary tract infection, site not specified; D84.9 Immunodeficiency, unspecified; A69.20 Lyme disease, unspecified; C79.51 Secondary malignant neoplasm of bone; C78.6 Secondary malignant neoplasm of retroperitoneum and peritoneum; C55 Malignant neoplasm of uterus, part unspecified; E03.9 Hypothyroidism, unspecified; E87.6 Hypokalemia; T45.1X5A Adverse effect of antineoplastic and immunosuppressive drugs, initial encounter; E86.0 Dehydration; E78.00 Pure hypercholesterolemia, unspecified; H91.90 Unspecified hearing loss, unspecified ear; G47.00 Insomnia, unspecified; G25.81 Restless legs syndrome; I12.9 Hypertensive chronic kidney disease with stage 1 through stage 4 chronic kidney disease, or unspecified chronic kidney disease; N18.30 Chronic kidney disease, stage 3 unspecified; M81.0 Age-related osteoporosis without current pathological fracture; Z90.710 Acquired absence of both cervix and uterus; Z98.890 Other specified postprocedural states; Z87.19 Personal history of other diseases of the digestive system; Z90.49 Acquired absence of other specified parts of digestive tract; Z90.722 Acquired absence of ovaries, bilateral; Z87.01 Personal history of pneumonia (recurrent); I25.2 Old myocardial infarction; Z88.0 Allergy status to penicillin; Z79.899 Other long term (current) drug therapy; Z90.5 Acquired absence of kidney; Z79.811 Long term (current) use of aromatase inhibitors
CPT/HCPCS: 36415; 80048; 80053; 81001; 83690; 83735; 84100; 84443; 84484; 85014; 85018; 85025; 86850; 86900; 86901; 86923; 87086; 87507; 93005; 93010; 96361; 96365; 96375; 96376; 97110-CQ; 97116; 97116-CQ; 97161; 97165; 97530; 97535; 99284-25; A9270; G0378; J0696; J0744; J0780; J1447; J1642; J2405; J7030; J7050; P9016; P9035; Q5110

== ENCOUNTER 2023-07-08 23:03 | Emergency (ER) | payer MEDICARE, OTHER ==
[~2023-07-08] VITALS: Ht 154.9 cm; Wt 49.9 kg
[~2023-07-08 23:03] MED LIST changes: +ASPI81CH PO; +AZIT500 PO; +Acetaminophen325 M1 PO; +LEVSOD100 PO; +LOMOTIL 2.5-0.1 EACH PO; +OMEP20ER PO; +OXYCODONE-ACET1 EAC3 PO; +PREGABALIN25 MG PO; +PROC5 PO; +VISBIOME 112.51 EACH PO
[2023-07-09 02:20] VITALS: BP 162/84
== END 2023-07-09 02:35 | disposition home or self-care (01) ==
LOC: ER 23:03
DX: T14.8XXA Other injury of unspecified body region, initial encounter (principal); M25.551 Pain in right hip; M79.89 Other specified soft tissue disorders; W18.30XA Fall on same level, unspecified, initial encounter; Z88.0 Allergy status to penicillin; Z79.899 Other long term (current) drug therapy; Z79.82 Long term (current) use of aspirin
CPT/HCPCS: 73502; 93971; 99284; A9270

== ENCOUNTER 2023-07-20 21:25 | Emergency (ER) | payer MEDICARE, OTHER ==
[~2023-07-20] VITALS: Ht 154.9 cm; Wt 49.9 kg
[2023-07-20 22:21] LABS: Source, Urine Clean Catch
[2023-07-20 22:28] LABS: BASOPHILS ABSOLUTE AUTO 0.02 K/mm3 (0.00-0.23); BASOPHILS PERCENT AUTO 0 % (0-2); EOSINOPHILS ABSOLUTE AUTO 0.02 K/mm3 (0.00-0.68); EOSINOPHILS PERCENT AUTO 0 % (0-6); Hemoglobin 10.5 g/dL (11.5-16.0); IMMATURE GRAN ABSOLUTE AUTO 0.01 K/mm3 (0.00-0.10); IMMATURE GRAN PERCENT AUTO 0 % (0-1); LYMPHOCYTES ABSOLUTE AUTO 1.01 K/mm3 (0.84-5.20); LYMPHOCYTES PERCENT AUTO 18 % (21-46); MONOCYTES ABSOLUTE AUTO 0.45 K/mm3 (0.16-1.47); MONOCYTES PERCENT AUTO 8 % (4-13); Mean Corpuscular HGB 30.1 pg (26.0-34.0); Mean Corpuscular HGB Conc 31.8 g/dL (31.5-36.5); Mean Corpuscular Volume 95 fL (80-100); Mean Platelet Volume 10.2 fL (9.1-12.4); NEUTROPHILS ABSOLUTE AUTO 4.27 K/mm3 (1.96-9.15); NEUTROPHILS PERCENT AUTO 74 % (41-73); Platelet Count 143 K/mm3 (150-400); RDW Coefficient Variation 15.6 % (11.7-14.2); RDW Standard Deviation 53.1 fL (35.1-46.3); Red Blood Cell Count 3.49 M/mm3 (3.80-5.20); White Blood Cell Count 5.78 K/mm3 (4.00-11.30)
[2023-07-20 22:40] LABS: Bilirubin, Urine Neg (Neg); Blood, Urine 1+ (Neg); Glucose Qualitative, Urine Neg (Neg); Ketones, Urine Neg (Neg); Leukocyte Esterase, Urine Neg (Neg); Nitrite, Urine Neg (Neg); Protein, Urine 1+ (Neg); Urobilinogen, Urine NORM (Normal)
[2023-07-20 22:50] LABS: Appearance, Urine Clear (Clear); Color, Urine Pale Yellow (P-Yellow)
[2023-07-20 22:51] LABS: Bacteria Rare /hpf; Red Blood Cells, Urine 0-2 /hpf (0-2); Squamous Epithelial Cells Not Seen /hpf (Few); White Blood Cells, Urine 0-2 /hpf (0-5)
[2023-07-20 22:56] LABS: Albumin, Blood 3.7 g/dL (3.4-5.0); Albumin/Globulin Ratio 0.7 (0.8-1.8); Bilirubin, Total 0.3 mg/dL (0.1-1.0); Bun/Creatinine Ratio 13.8 (12.0-20.0); Creatinine, Blood 2.83 mg/dL (0.40-1.00); Globulin, Blood 5.2 g/dL (2.2-4.0); Potassium, Blood 4.6 mmol/L (3.5-5.5); Total Protein, Blood 8.9 g/dL (6.4-8.2)
[2023-07-21 05:00] VITALS: BP 180/88
== END 2023-07-21 05:58 | disposition short-term general hospital (02) ==
LOC: ER 21:25
PROVIDERS: Emergency Medicine
DX: N13.39 Other hydronephrosis (principal); N17.9 Acute kidney failure, unspecified; R19.03 Right lower quadrant abdominal swelling, mass and lump; E86.0 Dehydration; D72.829 Elevated white blood cell count, unspecified; M79.89 Other specified soft tissue disorders; C56.9 Malignant neoplasm of unspecified ovary; Z79.890 Hormone replacement therapy; Z79.899 Other long term (current) drug therapy; Z79.82 Long term (current) use of aspirin; C79.60 Secondary malignant neoplasm of unspecified ovary; D63.0 Anemia in neoplastic disease; D64.9 Anemia, unspecified; E03.9 Hypothyroidism, unspecified
CPT/HCPCS: 36415; 74177; 80053; 81001; 82607; 82728; 82746; 83540; 83550; 83690; 84443; 85025; 93005; 93010; 93971; 96360; 99285-25; A9270; J7030; Q9967

== ENCOUNTER → 2023-07-27 | Outpatient (CLI) | payer MEDICARE, OTHER ==
[2023-07-27 14:17] LABS: BASOPHILS ABSOLUTE AUTO 0.02 K/mm3 (0.00-0.23); BASOPHILS PERCENT AUTO 0 % (0-2); EOSINOPHILS ABSOLUTE AUTO 0.05 K/mm3 (0.00-0.68); EOSINOPHILS PERCENT AUTO 1 % (0-6); Hematocrit 30.6 % (33.0-51.0); IMMATURE GRAN ABSOLUTE AUTO 0.03 K/mm3 (0.00-0.10); IMMATURE GRAN PERCENT AUTO 1 % (0-1); LYMPHOCYTES ABSOLUTE AUTO 0.86 K/mm3 (0.84-5.20); LYMPHOCYTES PERCENT AUTO 19 % (21-46); MONOCYTES ABSOLUTE AUTO 0.44 K/mm3 (0.16-1.47); MONOCYTES PERCENT AUTO 10 % (4-13); Mean Corpuscular HGB 30.6 pg (26.0-34.0); Mean Corpuscular HGB Conc 32.7 g/dL (31.5-36.5); Mean Corpuscular Volume 94 fL (80-100); Mean Platelet Volume 9.8 fL (9.1-12.4); NEUTROPHILS ABSOLUTE AUTO 3.16 K/mm3 (1.96-9.15); NEUTROPHILS PERCENT AUTO 69 % (41-73); Platelet Count 133 K/mm3 (150-400); RDW Coefficient Variation 15.9 % (11.7-14.2); RDW Standard Deviation 54.4 fL (35.1-46.3); Red Blood Cell Count 3.27 M/mm3 (3.80-5.20); White Blood Cell Count 4.56 K/mm3 (4.00-11.30)
[2023-07-27 14:30] LABS: Albumin, Blood 3.5 g/dL (3.4-5.0); Albumin/Globulin Ratio 0.7 (0.8-1.8); Bilirubin, Total 0.2 mg/dL (0.1-1.0); Bun/Creatinine Ratio 14.5 (12.0-20.0); Calcium, Blood 8.9 mg/dL (8.5-10.1); Creatinine, Blood 2.49 mg/dL (0.40-1.00); Magnesium, Blood 1.8 mg/dL (1.6-2.4); Potassium, Blood 4.8 mmol/L (3.5-5.5); Total Protein, Blood 8.5 g/dL (6.4-8.2)
== END | disposition home or self-care (01) ==
LOC: LAB SHORT 14:14 → LAB 14:14
PROVIDERS: Physician Assistant
DX: R53.83 Other fatigue (principal)
CPT/HCPCS: 80053; 83735; 85025; 87077; 87086; 87186

== ENCOUNTER 2023-09-02 07:08 | Emergency (ER) | payer MEDICARE, OTHER ==
[~2023-09-02] VITALS: Ht 154.9 cm; Wt 47.6 kg
[2023-09-02] MEDS ORDERED: TRAMADOL HCL TAB 50M (08:31)
[2023-09-02] MEDS ORDERED: PRED FORTE5 M1 (08:32)
[2023-09-02 08:51] LABS: Source, Urine Clean Catch
[2023-09-02 08:56] LABS: Appearance, Urine Hazy (Clear); Bilirubin, Urine Neg (Neg); Blood, Urine 5+ (Neg); Color, Urine Yellow (P-Yellow); Glucose Qualitative, Urine Neg (Neg); Ketones, Urine Neg (Neg); Leukocyte Esterase, Urine 3+ (Neg); Nitrite, Urine Neg (Neg); Protein, Urine 2+ (Neg); Specific Gravity, Urine 1.015 (1.003-1.022); Urobilinogen, Urine NORM (Normal)
[2023-09-02 09:04] LABS: Bacteria Many /hpf; Red Blood Cells, Urine 50-100 /hpf (0-2); Squamous Epithelial Cells Rare /hpf (Few)
[2023-09-02] MEDS ORDERED: Monodox100 MG PO (09:56)
[2023-09-02 10:12] VITALS: BP 179/68
== END 2023-09-02 10:17 | disposition home or self-care (01) ==
LOC: ER 07:08
PROVIDERS: Physician Assistant
DX: N39.0 Urinary tract infection, site not specified (principal); Z88.0 Allergy status to penicillin; Z79.899 Other long term (current) drug therapy
CPT/HCPCS: 74018; 81001; 87086; 99284-25; A9270

== ENCOUNTER 2023-10-03 03:31 | Day surgery (SDC) | payer MEDICARE, OTHER ==
[~2023-10-03 03:31] MED LIST changes: +Monodox100 MG PO; +PRED FORTE5 M1; +TRAMADOL HCL TAB 50M
[2023-10-03 16:03] VITALS: BP 153/69
[2023-10-03 16:30] LABS: BASOPHILS ABSOLUTE AUTO 0.01 K/mm3 (0.00-0.23); BASOPHILS PERCENT AUTO 0 % (0-2); EOSINOPHILS ABSOLUTE AUTO 0.03 K/mm3 (0.00-0.68); EOSINOPHILS PERCENT AUTO 1 % (0-6); Hematocrit 28.3 % (33.0-51.0); Hemoglobin 8.9 g/dL (11.5-16.0); IMMATURE GRAN ABSOLUTE AUTO 0.04 K/mm3 (0.00-0.10); IMMATURE GRAN PERCENT AUTO 1 % (0-1); LYMPHOCYTES ABSOLUTE AUTO 0.99 K/mm3 (0.84-5.20); LYMPHOCYTES PERCENT AUTO 17 % (21-46); MONOCYTES ABSOLUTE AUTO 0.48 K/mm3 (0.16-1.47); MONOCYTES PERCENT AUTO 8 % (4-13); Mean Corpuscular HGB 31.7 pg (26.0-34.0); Mean Corpuscular HGB Conc 31.4 g/dL (31.5-36.5); Mean Corpuscular Volume 101 fL (80-100); Mean Platelet Volume 10.2 fL (9.1-12.4); NEUTROPHILS ABSOLUTE AUTO 4.24 K/mm3 (1.96-9.15); NEUTROPHILS PERCENT AUTO 73 % (41-73); Platelet Count 163 K/mm3 (150-400); RDW Coefficient Variation 17.5 % (11.7-14.2); RDW Standard Deviation 63.5 fL (35.1-46.3); Red Blood Cell Count 2.81 M/mm3 (3.80-5.20); White Blood Cell Count 5.79 K/mm3 (4.00-11.30)
[2023-10-03 17:32] LABS: Albumin, Blood 3.2 g/dL (3.4-5.0); Albumin/Globulin Ratio 0.8 (0.8-1.8); Bilirubin, Total 0.5 mg/dL (0.1-1.0); Bun/Creatinine Ratio 14.9 (12.0-20.0); Calcium, Blood 8.7 mg/dL (8.5-10.1); Creatinine, Blood 1.75 mg/dL (0.40-1.00); Globulin, Blood 3.9 g/dL (2.2-4.0); Potassium, Blood 4.3 mmol/L (3.5-5.5); Total Protein, Blood 7.1 g/dL (6.4-8.2)
== END 2023-10-03 17:04 | disposition home or self-care (01) ==
LOC: ATC 03:31
PROVIDERS: Internal Medicine Hematology & Oncology
DX: C56.9 Malignant neoplasm of unspecified ovary (principal); E86.0 Dehydration
CPT/HCPCS: 80053; 85025; 96360; J1642; J7030

== ENCOUNTER 2023-10-18 01:44 | Day surgery (SDC) | payer MEDICARE, OTHER ==
[2023-10-18 09:45] VITALS: BP 128/71
== END 2023-10-18 11:00 | disposition home or self-care (01) ==
LOC: ATC 01:44
DX: C56.9 Malignant neoplasm of unspecified ovary (principal); E86.0 Dehydration
CPT/HCPCS: 96360; J1642; J7030

== ENCOUNTER 2023-11-17 04:25 | Day surgery (SDC) | payer MEDICARE, OTHER ==
[2023-11-17 15:10] VITALS: BP 126/70
== END 2023-11-17 16:20 | disposition home or self-care (01) ==
LOC: ATC 04:25
DX: C56.9 Malignant neoplasm of unspecified ovary (principal); E86.0 Dehydration; Z79.890 Hormone replacement therapy; Z88.0 Allergy status to penicillin; Z79.899 Other long term (current) drug therapy
CPT/HCPCS: 96360; J1642; J7030

== ENCOUNTER 2023-11-25 01:15 | Day surgery (SDC) | payer MEDICARE, OTHER ==
[2023-11-25 15:19] VITALS: BP 117/56
== END 2023-11-25 16:35 | disposition home or self-care (01) ==
LOC: ATC 01:15
DX: E86.0 Dehydration (principal); C56.9 Malignant neoplasm of unspecified ovary
CPT/HCPCS: 96360; J1642; J7030

== ENCOUNTER 2023-12-05 00:27 | Day surgery (SDC) | payer MEDICARE, OTHER ==
[2023-12-05] MEDS ORDERED: NS 1,000 ML IV SCH (07:10)
[2023-12-05 15:09] VITALS: BP 116/51
== END 2023-12-05 16:15 | disposition home or self-care (01) ==
LOC: ATC 00:27
DX: E86.0 Dehydration (principal); C56.9 Malignant neoplasm of unspecified ovary; D63.0 Anemia in neoplastic disease; C79.60 Secondary malignant neoplasm of unspecified ovary; E03.9 Hypothyroidism, unspecified
CPT/HCPCS: 36415; 80053; 84443; 85025; 96360; J1642; J7030

== ENCOUNTER 2023-12-08 18:59 | Emergency (ER) | payer MEDICARE, OTHER ==
[~2023-12-08] VITALS: Ht 154.9 cm; Wt 49.9 kg
[2023-12-08 20:12] LABS: BASOPHILS ABSOLUTE AUTO 0.01 K/mm3 (0.00-0.23); BASOPHILS PERCENT AUTO 0 % (0-2); EOSINOPHILS PERCENT AUTO 2 % (0-6); Hematocrit 30.3 % (33.0-51.0); Hemoglobin 9.7 g/dL (11.5-16.0); IMMATURE GRAN ABSOLUTE AUTO 0.02 K/mm3 (0.00-0.10); IMMATURE GRAN PERCENT AUTO 0 % (0-1); LYMPHOCYTES ABSOLUTE AUTO 0.98 K/mm3 (0.84-5.20); LYMPHOCYTES PERCENT AUTO 20 % (21-46); MONOCYTES ABSOLUTE AUTO 0.57 K/mm3 (0.16-1.47); MONOCYTES PERCENT AUTO 11 % (4-13); Mean Corpuscular Volume 97 fL (80-100); Mean Platelet Volume 9.6 fL (9.1-12.4); NEUTROPHILS ABSOLUTE AUTO 3.34 K/mm3 (1.96-9.15); NEUTROPHILS PERCENT AUTO 67 % (41-73); Platelet Count 163 K/mm3 (150-400); RDW Standard Deviation 56.9 fL (35.1-46.3); Red Blood Cell Count 3.13 M/mm3 (3.80-5.20); White Blood Cell Count 5.02 K/mm3 (4.00-11.30)
[2023-12-08 20:38] LABS: Albumin/Globulin Ratio 0.7 (0.8-1.8); Bilirubin, Total 0.2 mg/dL (0.1-1.0); Bun/Creatinine Ratio 18.9 (12.0-20.0); Calcium, Blood 9.1 mg/dL (8.5-10.1); Creatinine, Blood 1.69 mg/dL (0.40-1.00); Globulin, Blood 4.4 g/dL (2.2-4.0); Potassium, Blood 4.3 mmol/L (3.5-5.5); Total Protein, Blood 7.4 g/dL (6.4-8.2)
[2023-12-08] MEDS ORDERED: XANAX0.25 MG PO (20:49)
[2023-12-08 23:00] VITALS: BP 139/78
== END 2023-12-08 23:14 | disposition home or self-care (01) ==
LOC: ER 18:59
PROVIDERS: Emergency Medicine
DX: R07.89 Other chest pain (principal); M54.2 Cervicalgia; I65.21 Occlusion and stenosis of right carotid artery; G62.9 Polyneuropathy, unspecified; E03.9 Hypothyroidism, unspecified; N18.9 Chronic kidney disease, unspecified
CPT/HCPCS: 70498; 71045; 80053; 84484; 85025; 93005; 93010; 99285-25; Q9967

== ENCOUNTER 2023-12-13 03:23 | Day surgery (SDC) | payer MEDICARE, OTHER ==
[~2023-12-13 03:23] MED LIST changes: +XANAX0.25 MG PO
[2023-12-13] MEDS ORDERED: NS 1,000 ML IV SCH ×2 (07:05→15:25)
[2023-12-13 15:26] VITALS: BP 166/82
== END 2023-12-13 16:41 | disposition home or self-care (01) ==
LOC: ATC 03:23
DX: E86.0 Dehydration (principal); C56.9 Malignant neoplasm of unspecified ovary; D64.9 Anemia, unspecified
CPT/HCPCS: 96360; J1642; J7030

== ENCOUNTER 2023-12-21 01:17 | Day surgery (SDC) | payer MEDICARE, OTHER ==
[2023-12-21] MEDS ORDERED: NS 1,000 ML IV SCH (07:20)
[2023-12-21 10:27] VITALS: BP 148/89
== END 2023-12-21 11:30 | disposition home or self-care (01) ==
LOC: ATC 01:17
DX: E86.0 Dehydration (principal); C56.9 Malignant neoplasm of unspecified ovary; D63.0 Anemia in neoplastic disease
CPT/HCPCS: J1642; J7030

== ENCOUNTER 2024-02-13 04:46 | Day surgery (SDC) | payer MEDICARE, OTHER ==
[~2024-02-13 04:46] MED LIST changes: +ALPR.25 PO; +METO25 PO; +METO25ER PO; +XARELTO20 MG PO
[2024-02-13] MEDS ORDERED: NS 1,000 ML IV SCH (07:25)
[2024-02-13 10:30] VITALS: BP 151/67
== END 2024-02-13 11:44 | disposition home or self-care (01) ==
LOC: ATC 04:46
DX: C56.9 Malignant neoplasm of unspecified ovary (principal); E86.0 Dehydration
CPT/HCPCS: 96360; J1642; J7030

== ENCOUNTER 2024-02-21 02:33 | Day surgery (SDC) | payer MEDICARE, OTHER ==
--- NOTE | 2024-02-20 12:08 | NUR ---
PT CANCELED HER APPOINTMENT IN THE [facility] TODAY.
[~2024-02-21 02:33] MED LIST changes: +NS 1,000 ML IV SCH
[2024-02-21] MEDS ORDERED: NS 1,000 ML IV SCH (07:10)
[2024-02-21 10:03] VITALS: BP 166/78
== END 2024-02-21 11:10 | disposition home or self-care (01) ==
LOC: ATC 02:33
DX: C56.2 Malignant neoplasm of left ovary (principal); E86.0 Dehydration; Z79.899 Other long term (current) drug therapy; Z79.890 Hormone replacement therapy
CPT/HCPCS: 96360; J1642; J7030

== ENCOUNTER 2024-02-28 00:52 | Day surgery (SDC) | payer MEDICARE, OTHER ==
[2024-02-28 10:20] VITALS: BP 107/50
== END 2024-02-28 11:32 | disposition home or self-care (01) ==
LOC: ATC 00:52
DX: C56.1 Malignant neoplasm of right ovary (principal); E86.0 Dehydration; Z79.899 Other long term (current) drug therapy; Z79.890 Hormone replacement therapy

== ENCOUNTER 2024-04-03 03:40 | Day surgery (SDC) | payer MEDICARE, OTHER ==
[~2024-04-03 03:40] MED LIST changes: -NS 1,000 ML IV SCH
[2024-04-03] MEDS ORDERED: NS 1,000 ML IV SCH (07:00)
[2024-04-03 08:24] VITALS: BP 150/68
== END 2024-04-03 09:49 | disposition home or self-care (01) ==
LOC: ATC 03:40
DX: D56.9 Thalassemia, unspecified (principal); E86.0 Dehydration
CPT/HCPCS: 96360; J1642; J7030

== ENCOUNTER 2024-04-06 06:22 | Day surgery (SDC) | payer MEDICARE, OTHER ==
[2024-04-06] MEDS ORDERED: NS 1,000 ML IV SCH (07:00)
[2024-04-06 10:02] VITALS: BP 109/88
== END 2024-04-06 11:19 | disposition home or self-care (01) ==
LOC: ATC 06:22
DX: C56.9 Malignant neoplasm of unspecified ovary (principal); E86.0 Dehydration; Z79.899 Other long term (current) drug therapy
CPT/HCPCS: 96360; J1642; J7030

== ENCOUNTER 2024-04-07 01:21 | Day surgery (SDC) | payer MEDICARE, OTHER ==
[2024-04-07] MEDS ORDERED: NS 1,000 ML IV SCH (06:50)
[2024-04-07 08:00] VITALS: BP 163/85
== END 2024-04-07 09:00 | disposition home or self-care (01) ==
LOC: ATC 01:21
DX: C56.9 Malignant neoplasm of unspecified ovary (principal); E86.0 Dehydration; Z79.899 Other long term (current) drug therapy; Z88.0 Allergy status to penicillin
CPT/HCPCS: 96360; J1642; J7030

== ENCOUNTER 2024-04-24 00:49 | Day surgery (SDC) | payer MEDICARE, OTHER ==
[2024-04-24] MEDS ORDERED: NS 1,000 ML IV SCH (06:55)
[2024-04-24 10:24] VITALS: BP 134/57
== END 2024-04-24 11:31 | disposition home or self-care (01) ==
LOC: ATC 00:49
DX: C56.9 Malignant neoplasm of unspecified ovary (principal); E86.0 Dehydration; Z88.0 Allergy status to penicillin; Z79.899 Other long term (current) drug therapy
CPT/HCPCS: 96360; J1642; J7030

== ENCOUNTER 2024-04-27 02:45 | Day surgery (SDC) | payer MEDICARE, OTHER ==
[2024-04-27] MEDS ORDERED: NS 1,000 ML IV SCH (07:05)
[2024-04-27 10:06] VITALS: BP 136/81
== END 2024-04-27 11:09 | disposition home or self-care (01) ==
LOC: ATC 02:45
DX: C56.9 Malignant neoplasm of unspecified ovary (principal); E86.0 Dehydration
CPT/HCPCS: 96360; J1642; J7030

== ENCOUNTER 2024-04-30 02:46 | Day surgery (SDC) | payer MEDICARE, OTHER ==
[2024-04-30] MEDS ORDERED: NS 1,000 ML IV SCH (06:55)
[2024-04-30] MEDS ORDERED: NS 1,000 ML IV ONE (09:57)
[2024-04-30 10:15] VITALS: BP 122/71
== END 2024-04-30 11:19 | disposition home or self-care (01) ==
LOC: ATC 02:46
DX: C56.9 Malignant neoplasm of unspecified ovary (principal); E86.0 Dehydration
CPT/HCPCS: 96360; J1642; J7030

== ENCOUNTER 2024-05-15 03:24 | Day surgery (SDC) | payer MEDICARE, OTHER ==
[2024-05-15] MEDS ORDERED: NS 1,000 ML IV SCH (06:50)
[2024-05-15 13:50] VITALS: BP 109/54
== END 2024-05-15 15:05 | disposition home or self-care (01) ==
LOC: ATC 03:24
DX: E86.0 Dehydration (principal); C56.9 Malignant neoplasm of unspecified ovary; Z88.0 Allergy status to penicillin
CPT/HCPCS: 96360; J1642; J7030

== ENCOUNTER 2024-05-19 04:50 | Day surgery (SDC) | payer MEDICARE, OTHER ==
[2024-05-19] MEDS ORDERED: NS 1,000 ML IV SCH (07:10)
[2024-05-19 09:48] VITALS: BP 123/71
== END 2024-05-19 11:31 | disposition home or self-care (01) ==
LOC: ATC 04:50
DX: C56.9 Malignant neoplasm of unspecified ovary (principal); E86.0 Dehydration
CPT/HCPCS: 96360; 96361; J7030

== ENCOUNTER 2024-05-22 08:49 | Day surgery (SDC) | payer MEDICARE, OTHER ==
[2024-05-22] MEDS ORDERED: NS 1,000 ML IV SCH (09:40)
[2024-05-22 10:45] VITALS: BP 122/67
== END 2024-05-22 12:10 | disposition home or self-care (01) ==
LOC: ATC 08:49
DX: C56.9 Malignant neoplasm of unspecified ovary (principal); E86.0 Dehydration; Z88.0 Allergy status to penicillin
CPT/HCPCS: 96360; J1642; J7030

== ENCOUNTER 2024-06-09 02:45 | Day surgery (SDC) | payer MEDICARE, OTHER ==
[2024-06-09] MEDS ORDERED: NS 1,000 ML IV SCH (07:45)
[2024-06-09 08:45] VITALS: BP 120/71
== END 2024-06-09 09:56 | disposition home or self-care (01) ==
LOC: ATC 02:45
DX: E86.0 Dehydration (principal); C56.9 Malignant neoplasm of unspecified ovary; Z79.899 Other long term (current) drug therapy
CPT/HCPCS: 96360; J1642; J7030

== ENCOUNTER 2024-06-12 03:38 | Day surgery (SDC) | payer MEDICARE, OTHER ==
[2024-06-12] MEDS ORDERED: NS 1,000 ML IV SCH (07:15)
[2024-06-12 09:55] VITALS: BP 94/49
== END 2024-06-12 11:02 | disposition home or self-care (01) ==
LOC: ATC 03:38
DX: E86.0 Dehydration (principal); C56.9 Malignant neoplasm of unspecified ovary
CPT/HCPCS: 96360; J1642; J7030

== ENCOUNTER → 2024-06-22 | Outpatient (CLI) | payer MEDICARE, OTHER | END | disposition home or self-care (01) | LOC: LAB SHORT 11:08 → LAB 11:08 | DX: R30.0 Dysuria (principal) | CPT/HCPCS: 87086 ==

== ENCOUNTER → 2024-06-27 | Outpatient (CLI) | payer MEDICARE, OTHER ==
[2024-06-27 13:02] LABS: Source, Urine Clean Catch
[2024-06-27 14:17] LABS: Bacteria Many /hpf; Squamous Epithelial Cells Rare /hpf (Few); White Blood Cells, Urine TNTC /hpf (0-5)
== END ==
LOC: LAB 12:59 → LAB SHORT 12:59
PROVIDERS: Hospitalist
DX: R30.0 Dysuria (principal)
CPT/HCPCS: 81015; 87086

== ENCOUNTER 2024-07-10 03:11 | Day surgery (SDC) | payer MEDICARE, OTHER ==
[2024-07-10] MEDS ORDERED: NS 1,000 ML IV SCH (07:10)
[2024-07-10 09:02] VITALS: BP 130/63
== END 2024-07-10 10:19 | disposition home or self-care (01) ==
LOC: ATC 03:11
DX: E86.0 Dehydration (principal); C56.2 Malignant neoplasm of left ovary; D64.9 Anemia, unspecified; Z79.899 Other long term (current) drug therapy; Z93.6 Other artificial openings of urinary tract status; Z88.0 Allergy status to penicillin
CPT/HCPCS: 96360; J1642; J7030

== ENCOUNTER 2024-07-24 02:14 | Day surgery (SDC) | payer MEDICARE, OTHER ==
[2024-07-24] MEDS ORDERED: NS 1,000 ML IV SCH ×2 (06:40→14:50)
[2024-07-24 15:07] VITALS: BP 122/67
== END 2024-07-24 16:04 | disposition home or self-care (01) ==
LOC: ATC 02:14
DX: C56.9 Malignant neoplasm of unspecified ovary (principal); E86.0 Dehydration; Z79.890 Hormone replacement therapy; Z79.899 Other long term (current) drug therapy
CPT/HCPCS: 96360; J1642; J7030

== ENCOUNTER 2024-07-28 02:42 | Day surgery (SDC) | payer MEDICARE, OTHER ==
[2024-07-28] MEDS ORDERED: NS 1,000 ML IV SCH (06:55)
[2024-07-28 10:27] VITALS: BP 158/67
== END 2024-07-28 11:44 | disposition home or self-care (01) ==
LOC: ATC 02:42
DX: E86.0 Dehydration (principal); C56.9 Malignant neoplasm of unspecified ovary; Z79.890 Hormone replacement therapy; Z79.899 Other long term (current) drug therapy; Z88.0 Allergy status to penicillin
CPT/HCPCS: 96360; J1642; J7030

== ENCOUNTER 2024-07-31 03:33 | Day surgery (SDC) | payer MEDICARE, OTHER ==
[2024-07-31] MEDS ORDERED: NS 1,000 ML IV SCH (07:05)
[2024-07-31 15:02] VITALS: BP 128/54
== END 2024-07-31 16:14 | disposition home or self-care (01) ==
LOC: ATC 03:33
DX: E86.0 Dehydration (principal); C56.9 Malignant neoplasm of unspecified ovary; Z79.899 Other long term (current) drug therapy
CPT/HCPCS: 96360; J1642; J7030

== ENCOUNTER 2024-08-14 04:41 | Day surgery (SDC) | payer MEDICARE, OTHER ==
[2024-08-14] MEDS ORDERED: NS 1,000 ML IV SCH (07:15)
[2024-08-14 14:08] VITALS: BP 138/74
== END 2024-08-14 14:53 | disposition home or self-care (01) ==
LOC: ATC 04:41
DX: E86.0 Dehydration (principal); C56.9 Malignant neoplasm of unspecified ovary; D64.9 Anemia, unspecified; Z79.899 Other long term (current) drug therapy
CPT/HCPCS: 96360; J1642; J7030

== ENCOUNTER 2024-08-16 03:15 | Day surgery (SDC) | payer MEDICARE, OTHER ==
[2024-08-16] MEDS ORDERED: NS 1,000 ML IV SCH (06:55)
[2024-08-16 14:04] VITALS: BP 111/61
== END 2024-08-16 15:07 | disposition home or self-care (01) ==
LOC: ATC 03:15
DX: E86.0 Dehydration (principal); C56.9 Malignant neoplasm of unspecified ovary; Z79.899 Other long term (current) drug therapy; D64.9 Anemia, unspecified
CPT/HCPCS: 96360; J1642; J7030

== ENCOUNTER 2024-08-18 00:04 | Day surgery (SDC) | payer MEDICARE, OTHER ==
[2024-08-18] MEDS ORDERED: NS 1,000 ML IV SCH (06:55)
[2024-08-18 10:20] VITALS: BP 100/62
== END 2024-08-18 11:31 | disposition home or self-care (01) ==
LOC: ATC 00:04
DX: E86.0 Dehydration (principal); C56.9 Malignant neoplasm of unspecified ovary; Z79.899 Other long term (current) drug therapy
CPT/HCPCS: 96360; J1642; J7030

== ENCOUNTER 2024-08-21 01:50 | Day surgery (SDC) | payer MEDICARE, OTHER ==
[2024-08-21] MEDS ORDERED: NS 1,000 ML IV SCH (07:05)
[2024-08-21 13:52] VITALS: BP 134/65
== END 2024-08-21 14:56 | disposition home or self-care (01) ==
LOC: ATC 01:50
DX: E86.0 Dehydration (principal); C56.9 Malignant neoplasm of unspecified ovary; Z79.899 Other long term (current) drug therapy
CPT/HCPCS: 96360; J1642; J7030

== ENCOUNTER 2024-09-26 08:22 | Day surgery (SDC) | payer MEDICARE, OTHER ==
[2024-09-26] MEDS ORDERED: NS 1,000 ML IV ONE (14:54)
[2024-09-26] MEDS ORDERED: NS 1,000 ML IV SCH (14:55)
[2024-09-26 15:13] VITALS: BP 105/56
== END 2024-09-26 16:21 | disposition home or self-care (01) ==
LOC: ATC 08:22
DX: E86.0 Dehydration (principal); C56.9 Malignant neoplasm of unspecified ovary; U07.1 COVID-19
CPT/HCPCS: 71046; 96360; J1642; J7030

== ENCOUNTER 2024-09-28 14:41 | Emergency (ER) | payer MEDICARE, OTHER ==
[~2024-09-28] VITALS: Ht 154.9 cm; Wt 51.7 kg
[2024-09-28] MEDS ORDERED: Acetaminophen 500 MG Tab PO ONE (16:25)
[2024-09-28 16:58] LABS: BASOPHILS PERCENT AUTO 0 % (0-2); EOSINOPHILS ABSOLUTE AUTO 0.12 K/mm3 (0.00-0.68); EOSINOPHILS PERCENT AUTO 2 % (0-6); Hematocrit 35.4 % (33.0-51.0); Hemoglobin 11.2 g/dL (11.5-16.0); IMMATURE GRAN ABSOLUTE AUTO 0.01 K/mm3 (0.00-0.10); IMMATURE GRAN PERCENT AUTO 0 % (0-1); LYMPHOCYTES ABSOLUTE AUTO 1.51 K/mm3 (0.84-5.20); LYMPHOCYTES PERCENT AUTO 31 % (21-46); MONOCYTES ABSOLUTE AUTO 0.44 K/mm3 (0.16-1.47); MONOCYTES PERCENT AUTO 9 % (4-13); Mean Corpuscular HGB 30.4 pg (26.0-34.0); Mean Corpuscular HGB Conc 31.6 g/dL (31.5-36.5); Mean Corpuscular Volume 96 fL (80-100); Mean Platelet Volume 9.6 fL (9.1-12.4); NEUTROPHILS ABSOLUTE AUTO 2.87 K/mm3 (1.96-9.15); NEUTROPHILS PERCENT AUTO 58 % (41-73); Platelet Count 169 K/mm3 (150-400); RDW Coefficient Variation 15.3 % (11.7-14.2); RDW Standard Deviation 53.6 fL (35.1-46.3); Red Blood Cell Count 3.69 M/mm3 (3.80-5.20); White Blood Cell Count 4.95 K/mm3 (4.00-11.30)
[2024-09-28 17:23] LABS: Albumin, Blood 3.2 g/dL (3.4-5.0); Albumin/Globulin Ratio 0.7 (0.8-1.8); Bilirubin, Total 0.4 mg/dL (0.1-1.0); Bun/Creatinine Ratio 17.3 (12.0-20.0); Calcium, Blood 9.1 mg/dL (8.5-10.1); Creatinine, Blood 1.73 mg/dL (0.40-1.00); Globulin, Blood 4.8 g/dL (2.2-4.0); Potassium, Blood 4.9 mmol/L (3.5-5.5)
[2024-09-28 19:30] VITALS: BP 150/86
== END 2024-09-28 20:00 | disposition home or self-care (01) ==
LOC: ER 14:41
PROVIDERS: Emergency Medicine
DX: U07.1 COVID-19 (principal); R07.9 Chest pain, unspecified; Z79.899 Other long term (current) drug therapy; Z88.0 Allergy status to penicillin
CPT/HCPCS: 71046; 80053; 84484; 85025; 93005; 93010; 99284-25; A9270

== ENCOUNTER 2024-10-09 04:44 | Day surgery (SDC) | payer MEDICARE, OTHER ==
[2024-10-09] MEDS ORDERED: NS 1,000 ML IV SCH ×2 (07:10→15:10)
[2024-10-09 15:12] VITALS: BP 116/57
== END 2024-10-09 16:33 | disposition home or self-care (01) ==
LOC: ATC 04:44
DX: E86.0 Dehydration (principal); C56.9 Malignant neoplasm of unspecified ovary
CPT/HCPCS: 96360; J1642; J7030

== ENCOUNTER 2024-10-12 05:05 | Emergency (ER) | payer MEDICARE, OTHER ==
[~2024-10-12] VITALS: Ht 162.6 cm; Wt 63.5 kg
[2024-10-12] MEDS ORDERED: [UNRECOGNIZED DRUG - OTHER] (06:00)
[2024-10-12] MEDS ORDERED: 1/2 NS 250ml250 ML (06:00)
[2024-10-12 06:05] LABS: BASOPHILS ABSOLUTE AUTO 0.01 K/mm3 (0.00-0.23); BASOPHILS PERCENT AUTO 0 % (0-2); EOSINOPHILS ABSOLUTE AUTO 0.04 K/mm3 (0.00-0.68); EOSINOPHILS PERCENT AUTO 1 % (0-6); Hematocrit 35.9 % (33.0-51.0); Hemoglobin 11.8 g/dL (11.5-16.0); IMMATURE GRAN ABSOLUTE AUTO 0.04 K/mm3 (0.00-0.10); IMMATURE GRAN PERCENT AUTO 1 % (0-1); LYMPHOCYTES ABSOLUTE AUTO 1.36 K/mm3 (0.84-5.20); LYMPHOCYTES PERCENT AUTO 18 % (21-46); MONOCYTES ABSOLUTE AUTO 0.19 K/mm3 (0.16-1.47); MONOCYTES PERCENT AUTO 3 % (4-13); Mean Corpuscular HGB 31.3 pg (26.0-34.0); Mean Corpuscular HGB Conc 32.9 g/dL (31.5-36.5); Mean Corpuscular Volume 95 fL (80-100); Mean Platelet Volume 9.3 fL (9.1-12.4); NEUTROPHILS PERCENT AUTO 78 % (41-73); Platelet Count 161 K/mm3 (150-400); RDW Coefficient Variation 15.1 % (11.7-14.2); RDW Standard Deviation 52.5 fL (35.1-46.3); Red Blood Cell Count 3.77 M/mm3 (3.80-5.20); White Blood Cell Count 7.54 K/mm3 (4.00-11.30)
[2024-10-12 06:44] LABS: Alanine Aminotransfer (ALT/SGP 40 U/L (12-78); Albumin, Blood 3.2 g/dL (3.4-5.0); Albumin/Globulin Ratio 0.7 (0.8-1.8); Alk Phos 88 U/L (50-136); Anion Gap 11 mmol/L (3-11); Aspartate Aminotrans (AST/SGOT 42 U/L (12-37); Bilirubin, Total 0.6 mg/dL (0.1-1.0); Blood Urea Nitrogen 39 mg/dL (8-24); Bun/Creatinine Ratio 23.9 (12.0-20.0); CO2, Blood 22 mmol/L (21-32); Calcium, Blood 9.1 mg/dL (8.5-10.1); Chloride, Blood 108 mmol/L (98-108); Creatinine, Blood 1.63 mg/dL (0.40-1.00); Globulin, Blood 4.9 g/dL (2.2-4.0); Glomerular Filtration Rate 31 (60-); Glucose, Blood 143 mg/dL (70-99); Potassium, Blood 4.3 mmol/L (3.5-5.5); Sodium, Blood 137 mmol/L (136-145); Total Protein, Blood 8.1 g/dL (6.4-8.2)
[2024-10-12] MEDS ORDERED: Ondansetron HCl 2 MG / ML 2ML Vial IV ONE (06:50)
[2024-10-12] MEDS ORDERED: Pantoprazole Sodium 40 MG Injection IV ONE (07:05)
[2024-10-12 10:20] VITALS: BP 132/72
== END 2024-10-12 10:26 | disposition home or self-care (01) ==
LOC: ER 05:05
PROVIDERS: Emergency Medicine
DX: K59.00 Constipation, unspecified (principal); R11.2 Nausea with vomiting, unspecified; Z79.899 Other long term (current) drug therapy; Z88.0 Allergy status to penicillin
CPT/HCPCS: 71046; 74177; 80053; 83690; 84484; 85025; 93005; 93010; 96374-59; 96375; 99285-25; J2405; J2470; Q9967

== ENCOUNTER 2024-10-14 23:34 | Emergency (ER) | payer MEDICARE, OTHER ==
[~2024-10-14] VITALS: Ht 152.4 cm; Wt 49.9 kg
[~2024-10-14 23:34] MED LIST changes: +1/2 NS 250ml250 ML; +[UNRECOGNIZED DRUG - OTHER]
[2024-10-15 00:07] LABS: BASOPHILS ABSOLUTE AUTO 0.01 K/mm3 (0.00-0.23); BASOPHILS PERCENT AUTO 0 % (0-2); EOSINOPHILS ABSOLUTE AUTO 0.18 K/mm3 (0.00-0.68); EOSINOPHILS PERCENT AUTO 3 % (0-6); Hematocrit 30.8 % (33.0-51.0); Hemoglobin 9.8 g/dL (11.5-16.0); IMMATURE GRAN ABSOLUTE AUTO 0.02 K/mm3 (0.00-0.10); IMMATURE GRAN PERCENT AUTO 0 % (0-1); LYMPHOCYTES ABSOLUTE AUTO 1.36 K/mm3 (0.84-5.20); LYMPHOCYTES PERCENT AUTO 23 % (21-46); MONOCYTES ABSOLUTE AUTO 0.33 K/mm3 (0.16-1.47); MONOCYTES PERCENT AUTO 6 % (4-13); Mean Corpuscular HGB 30.2 pg (26.0-34.0); Mean Corpuscular HGB Conc 31.8 g/dL (31.5-36.5); Mean Corpuscular Volume 95 fL (80-100); Mean Platelet Volume 9.8 fL (9.1-12.4); NEUTROPHILS ABSOLUTE AUTO 4.03 K/mm3 (1.96-9.15); NEUTROPHILS PERCENT AUTO 68 % (41-73); Platelet Count 127 K/mm3 (150-400); RDW Coefficient Variation 14.8 % (11.7-14.2); RDW Standard Deviation 51.9 fL (35.1-46.3); Red Blood Cell Count 3.25 M/mm3 (3.80-5.20); White Blood Cell Count 5.93 K/mm3 (4.00-11.30)
[2024-10-15 00:20] LABS: Albumin, Blood 2.7 g/dL (3.4-5.0); Albumin/Globulin Ratio 0.7 (0.8-1.8); Bilirubin, Total 0.4 mg/dL (0.1-1.0); Bun/Creatinine Ratio 16.2 (12.0-20.0); Creatinine, Blood 1.91 mg/dL (0.40-1.00); Potassium, Blood 4.1 mmol/L (3.5-5.5); Total Protein, Blood 6.7 g/dL (6.4-8.2)
[2024-10-15] MEDS ORDERED: NS 1,000 ML IV SCH (02:35)
[2024-10-15 03:27] LABS: Source, Urine Clean Catch
[2024-10-15 03:32] LABS: Bilirubin, Urine Neg (Neg); Blood, Urine 4+ (Neg); Glucose Qualitative, Urine Neg (Neg); Ketones, Urine Neg (Neg); Leukocyte Esterase, Urine 3+ (Neg); Nitrite, Urine Neg (Neg); Protein, Urine 2+ (Neg); Specific Gravity, Urine 1.005 (1.003-1.022); Urobilinogen, Urine NORM (Normal)
[2024-10-15 03:40] LABS: Appearance, Urine Hazy (Clear); Color, Urine Yellow (P-Yellow)
[2024-10-15 03:41] LABS: Bacteria Mod /hpf; Red Blood Cells, Urine 0-2 /hpf (0-2); Squamous Epithelial Cells Not Seen /hpf (Few); White Blood Cells, Urine TNTC /hpf (0-5)
[2024-10-15] MEDS ORDERED: Ciprofloxacin 500 MG Tab PO ONE (05:50)
[2024-10-15] MEDS ORDERED: Cipro250 MG PO (05:51)
[2024-10-15 06:00] VITALS: BP 113/81
== END 2024-10-15 06:00 | disposition home or self-care (01) ==
LOC: ER 23:34
PROVIDERS: Emergency Medicine
DX: N39.0 Urinary tract infection, site not specified (principal); R55 Syncope and collapse; E03.9 Hypothyroidism, unspecified; I25.2 Old myocardial infarction; Z79.899 Other long term (current) drug therapy; Z88.0 Allergy status to penicillin
CPT/HCPCS: 80053; 81001; 83690; 84484; 85025; 87086; 93005; 93010; 96360; 99284-25; A9270; J7030

== ENCOUNTER 2024-10-17 13:49 | Day surgery (SDC) | payer MEDICARE, OTHER ==
[~2024-10-17 13:49] MED LIST changes: +Cipro250 MG PO; +NS 1,000 ML IV SCH
== END 2024-10-17 15:10 | disposition home or self-care (01) ==
LOC: ATC 13:49
DX: C56.9 Malignant neoplasm of unspecified ovary (principal); E86.0 Dehydration
CPT/HCPCS: 96360; J1642; J7030

== ENCOUNTER 2024-11-02 05:55 | Day surgery (SDC) | payer MEDICARE, OTHER ==
[~2024-11-02 05:55] MED LIST changes: -NS 1,000 ML IV SCH
[2024-11-02] MEDS ORDERED: NS 1,000 ML IV SCH (06:55)
[2024-11-02 11:20] VITALS: BP 139/62
== END 2024-11-02 12:34 | disposition home or self-care (01) ==
LOC: ATC 05:55
DX: E86.0 Dehydration (principal); C56.9 Malignant neoplasm of unspecified ovary; E03.9 Hypothyroidism, unspecified; N18.4 Chronic kidney disease, stage 4 (severe)
CPT/HCPCS: 36415; 80053; 84443; 85025; 96360; J1642; J7030

== ENCOUNTER 2024-11-03 02:29 | Day surgery (SDC) | payer MEDICARE, OTHER ==
[2024-11-03] MEDS ORDERED: NS 1,000 ML IV SCH (06:40)
[2024-11-03 09:57] VITALS: BP 96/55
== END 2024-11-03 11:05 | disposition home or self-care (01) ==
LOC: ATC 02:29
DX: E86.0 Dehydration (principal); C56.9 Malignant neoplasm of unspecified ovary; N18.9 Chronic kidney disease, unspecified
CPT/HCPCS: 96360; J1642; J7030

== ENCOUNTER 2024-11-05 03:41 | Day surgery (SDC) | payer MEDICARE, OTHER ==
[2024-11-05] MEDS ORDERED: NS 1,000 ML IV SCH (07:00)
[2024-11-05 15:04] VITALS: BP 128/65
== END 2024-11-05 16:12 | disposition home or self-care (01) ==
LOC: ATC 03:41
DX: E86.0 Dehydration (principal); C56.9 Malignant neoplasm of unspecified ovary
CPT/HCPCS: 96360; J1642; J7030

== ENCOUNTER 2024-11-22 05:34 | Day surgery (SDC) | payer MEDICARE, OTHER ==
[~2024-11-22 05:34] MED LIST changes: -CIPR500 PO; -LEVO750 PO; -MONDOXYNE NL100 MG PO; -ONDA4ODT MM; -PRED FORTE5 M1 BOTHEYES
[2024-11-22] MEDS ORDERED: NS 1,000 ML IV SCH (07:10)
[2024-11-22 14:20] VITALS: BP 112/51
== END 2024-11-22 15:33 | disposition home or self-care (01) ==
LOC: ATC 05:34
DX: E86.0 Dehydration (principal); C56.9 Malignant neoplasm of unspecified ovary; N18.9 Chronic kidney disease, unspecified; N39.0 Urinary tract infection, site not specified
CPT/HCPCS: 87086; 96360; J1642; J7030

== ENCOUNTER → 2024-11-22 | Outpatient (CLI) | payer MEDICARE, OTHER ==
[~2024-11-22] MED LIST changes: +CIPR500 PO; +LEVO750 PO; +MONDOXYNE NL100 MG PO; +ONDA4ODT MM; +PRED FORTE5 M1 BOTHEYES
== END ==
LOC: LAB SHORT 17:51 → LAB 17:51
DX: N39.0 Urinary tract infection, site not specified (principal)
CPT/HCPCS: 87086

== ENCOUNTER 2024-11-24 06:11 | Day surgery (SDC) | payer MEDICARE, OTHER ==
[2024-11-24] MEDS ORDERED: NS 1,000 ML IV SCH (06:55)
[2024-11-24 11:02] VITALS: BP 122/56
[2024-11-24] MEDS ORDERED: MONDOXYNE NL100 MG PO (11:33)
[2024-11-24] MEDS ORDERED: PRED FORTE5 M1 BOTHEYES (11:34)
== END 2024-11-24 12:14 | disposition home or self-care (01) ==
LOC: ATC 06:11
DX: C56.9 Malignant neoplasm of unspecified ovary (principal); E86.0 Dehydration; N18.9 Chronic kidney disease, unspecified
CPT/HCPCS: 96360; J1642; J7030

== ENCOUNTER 2024-11-26 07:17 | Day surgery (SDC) | payer MEDICARE, OTHER ==
[~2024-11-26 07:17] MED LIST changes: +MONDOXYNE NL100 MG PO; +NS 1,000 ML IV SCH; +PRED FORTE5 M1 BOTHEYES
[2024-11-26 14:05] VITALS: BP 126/49
[2024-11-26] MEDS ORDERED: LEVO750 PO (20:01)
== END 2024-11-26 15:12 | disposition home or self-care (01) ==
LOC: ATC 07:17
DX: E86.0 Dehydration (principal); C56.9 Malignant neoplasm of unspecified ovary; N18.9 Chronic kidney disease, unspecified; N39.0 Urinary tract infection, site not specified; I25.2 Old myocardial infarction; E03.9 Hypothyroidism, unspecified; I42.9 Cardiomyopathy, unspecified; Z79.01 Long term (current) use of anticoagulants; Z96.0 Presence of urogenital implants; Z88.0 Allergy status to penicillin; Z79.899 Other long term (current) drug therapy; Z79.890 Hormone replacement therapy; Z59.89 Other problems related to housing and economic circumstances
CPT/HCPCS: 80053; 81001; 85025; 87086; 96360; 99283; A9270; J1642; J7030

== ENCOUNTER 2024-11-26 16:34 | Emergency (ER) | payer MEDICARE, OTHER ==
[~2024-11-26] VITALS: Ht 152.4 cm; Wt 52.2 kg
[~2024-11-26 16:34] MED LIST changes: -NS 1,000 ML IV SCH
[2024-11-26 17:19] LABS: BASOPHILS ABSOLUTE AUTO 0.01 K/mm3 (0.00-0.23); BASOPHILS PERCENT AUTO 0 % (0-2); EOSINOPHILS ABSOLUTE AUTO 0.13 K/mm3 (0.00-0.68); EOSINOPHILS PERCENT AUTO 4 % (0-6); Hematocrit 29.7 % (33.0-51.0); Hemoglobin 9.7 g/dL (11.5-16.0); IMMATURE GRAN ABSOLUTE AUTO 0.03 K/mm3 (0.00-0.10); IMMATURE GRAN PERCENT AUTO 1 % (0-1); LYMPHOCYTES PERCENT AUTO 26 % (21-46); MONOCYTES ABSOLUTE AUTO 0.24 K/mm3 (0.16-1.47); MONOCYTES PERCENT AUTO 7 % (4-13); Mean Corpuscular HGB 31.5 pg (26.0-34.0); Mean Corpuscular HGB Conc 32.7 g/dL (31.5-36.5); Mean Corpuscular Volume 96 fL (80-100); Mean Platelet Volume 9.5 fL (9.1-12.4); NEUTROPHILS ABSOLUTE AUTO 2.19 K/mm3 (1.96-9.15); NEUTROPHILS PERCENT AUTO 63 % (41-73); Platelet Count 102 K/mm3 (150-400); RDW Coefficient Variation 18.4 % (11.7-14.2); RDW Standard Deviation 63.6 fL (35.1-46.3); Red Blood Cell Count 3.08 M/mm3 (3.80-5.20)
[2024-11-26 17:51] LABS: Albumin, Blood 2.7 g/dL (3.4-5.0); Albumin/Globulin Ratio 0.7 (0.8-1.8); Bilirubin, Total 0.3 mg/dL (0.1-1.0); Bun/Creatinine Ratio 16.6 (12.0-20.0); Calcium, Blood 8.4 mg/dL (8.5-10.1); Creatinine, Blood 1.63 mg/dL (0.40-1.00); Globulin, Blood 3.9 g/dL (2.2-4.0); Potassium, Blood 3.8 mmol/L (3.5-5.5); Total Protein, Blood 6.6 g/dL (6.4-8.2)
[2024-11-26] MEDS ORDERED: LevoFLOXacin 750 MG Tab PO ONE (18:55)
[2024-11-26 19:18] LABS: Source, Urine Clean Catch
[2024-11-26 19:28] LABS: Appearance, Urine Cloudy (Clear); Bilirubin, Urine Neg (Neg); Blood, Urine 5+ (Neg); Color, Urine Yellow (P-Yellow); Glucose Qualitative, Urine Neg (Neg); Ketones, Urine Neg (Neg); Leukocyte Esterase, Urine 3+ (Neg); Nitrite, Urine Neg (Neg); Protein, Urine 4+ (Neg); Specific Gravity, Urine 1.015 (1.003-1.022); Urobilinogen, Urine NORM (Normal)
[2024-11-26 19:35] VITALS: BP 137/66
[2024-11-26 19:43] LABS: Red Blood Cells, Urine TNTC /hpf (0-2); Squamous Epithelial Cells Rare /hpf (Few); White Blood Cells, Urine 50-100 /hpf (0-5)
[2024-11-26 19:44] LABS: Bacteria Mod /hpf; Transitional Epithelial Cells Rare /hpf (0-Rare)
[2024-11-26] MEDS ORDERED: LEVO750 PO (20:01)
== END 2024-11-26 20:12 | disposition home or self-care (01) ==
LOC: ER 16:34
PROVIDERS: Physician Assistant
DX: N39.0 Urinary tract infection, site not specified (principal); I25.2 Old myocardial infarction; E03.9 Hypothyroidism, unspecified; N18.9 Chronic kidney disease, unspecified; I42.9 Cardiomyopathy, unspecified; Z96.0 Presence of urogenital implants; Z88.0 Allergy status to penicillin; Z79.890 Hormone replacement therapy; Z79.899 Other long term (current) drug therapy; Z59.89 Other problems related to housing and economic circumstances
CPT/HCPCS: 80053; 81001; 85025; A9270

== ENCOUNTER 2024-11-29 10:12 | Emergency (ER) | payer MEDICARE, OTHER ==
[~2024-11-29] VITALS: Ht 152.4 cm; Wt 49.9 kg
[~2024-11-29 10:12] MED LIST changes: +LEVO750 PO
[2024-11-29] MEDS ORDERED: Lactated Ringer's 500 ML IV SCH (10:35)
[2024-11-29 11:50] LABS: BASOPHILS ABSOLUTE AUTO 0.01 K/mm3 (0.00-0.23); BASOPHILS PERCENT AUTO 0 % (0-2); EOSINOPHILS ABSOLUTE AUTO 0.06 K/mm3 (0.00-0.68); EOSINOPHILS PERCENT AUTO 2 % (0-6); Hematocrit 29.1 % (33.0-51.0); Hemoglobin 9.8 g/dL (11.5-16.0); IMMATURE GRAN ABSOLUTE AUTO 0.02 K/mm3 (0.00-0.10); IMMATURE GRAN PERCENT AUTO 1 % (0-1); LYMPHOCYTES ABSOLUTE AUTO 0.61 K/mm3 (0.84-5.20); LYMPHOCYTES PERCENT AUTO 22 % (21-46); MONOCYTES ABSOLUTE AUTO 0.29 K/mm3 (0.16-1.47); MONOCYTES PERCENT AUTO 11 % (4-13); Mean Corpuscular HGB 31.9 pg (26.0-34.0); Mean Corpuscular HGB Conc 33.7 g/dL (31.5-36.5); Mean Corpuscular Volume 95 fL (80-100); Mean Platelet Volume 10.1 fL (9.1-12.4); NEUTROPHILS ABSOLUTE AUTO 1.73 K/mm3 (1.96-9.15); NEUTROPHILS PERCENT AUTO 64 % (41-73); Platelet Count 85 K/mm3 (150-400); RDW Coefficient Variation 18.1 % (11.7-14.2); RDW Standard Deviation 60.6 fL (35.1-46.3); Red Blood Cell Count 3.07 M/mm3 (3.80-5.20); White Blood Cell Count 2.72 K/mm3 (4.00-11.30)
[2024-11-29 12:18] LABS: Albumin, Blood 2.8 g/dL (3.4-5.0); Albumin/Globulin Ratio 0.7 (0.8-1.8); Bilirubin, Total 0.4 mg/dL (0.1-1.0); Bun/Creatinine Ratio 15.6 (12.0-20.0); Calcium, Blood 9.3 mg/dL (8.5-10.1); Creatinine, Blood 2.25 mg/dL (0.40-1.00); Globulin, Blood 4.1 g/dL (2.2-4.0); Potassium, Blood 4.1 mmol/L (3.5-5.5); Total Protein, Blood 6.9 g/dL (6.4-8.2)
[2024-11-29 13:30] VITALS: BP 118/54
== END 2024-11-29 13:42 | disposition home or self-care (01) ==
LOC: ER 10:12
PROVIDERS: Student in an Organized Health Care Education/Training Program
DX: E86.0 Dehydration (principal); R53.1 Weakness; M79.10 Myalgia, unspecified site; T36.8X5A Adverse effect of other systemic antibiotics, initial encounter; E03.9 Hypothyroidism, unspecified; Z79.1 Long term (current) use of non-steroidal anti-inflammatories (NSAID); Z88.0 Allergy status to penicillin; Z79.2 Long term (current) use of antibiotics
CPT/HCPCS: 80053; 85025; 96360; 96361; 99283-25; J7120

== ENCOUNTER 2024-12-03 01:05 | Day surgery (SDC) | payer MEDICARE, OTHER ==
[2024-12-03] MEDS ORDERED: NS 1,000 ML IV SCH (07:10)
[2024-12-03 13:15] VITALS: BP 123/68
[2024-12-03] MEDS ORDERED: CIPR500 PO (13:37)
[2024-12-03] MEDS ORDERED: ONDA4ODT MM (13:37)
== END 2024-12-03 15:02 | disposition home or self-care (01) ==
LOC: ATC 01:05
DX: E86.0 Dehydration (principal); C56.9 Malignant neoplasm of unspecified ovary; Z79.899 Other long term (current) drug therapy; Z79.890 Hormone replacement therapy; Z88.0 Allergy status to penicillin
CPT/HCPCS: 96360; J1642; J7030

== ENCOUNTER 2024-12-13 02:38 | Day surgery (SDC) | payer MEDICARE, OTHER ==
[~2024-12-13 02:38] MED LIST changes: +CIPR500 PO; +ONDA4ODT MM
[2024-12-13] MEDS ORDERED: NS 1,000 ML IV SCH (07:10)
[2024-12-13 11:00] VITALS: BP 139/71
== END 2024-12-13 12:20 | disposition home or self-care (01) ==
LOC: ATC 02:38
DX: E86.0 Dehydration (principal); C56.9 Malignant neoplasm of unspecified ovary; N18.9 Chronic kidney disease, unspecified
CPT/HCPCS: 96360; J1642; J7030

== ENCOUNTER 2024-12-17 02:15 | Day surgery (SDC) | payer MEDICARE, OTHER ==
[2024-12-17] MEDS ORDERED: NS 1,000 ML IV SCH (07:05)
[2024-12-17 10:16] VITALS: BP 132/72
== END 2024-12-17 11:21 | disposition home or self-care (01) ==
LOC: ATC 02:15
DX: E86.0 Dehydration (principal); C56.9 Malignant neoplasm of unspecified ovary; N18.4 Chronic kidney disease, stage 4 (severe); E03.9 Hypothyroidism, unspecified
CPT/HCPCS: 36415; 80053; 84443; 85025; 96360; J1642; J7030

== ENCOUNTER 2024-12-27 02:35 | Day surgery (SDC) | payer MEDICARE, OTHER ==
[2024-12-27] MEDS ORDERED: NS 1,000 ML IV SCH (06:35)
[2024-12-27 14:50] VITALS: BP 128/67
== END 2024-12-27 16:00 | disposition home or self-care (01) ==
LOC: ATC 02:35
DX: E86.0 Dehydration (principal); C56.9 Malignant neoplasm of unspecified ovary
CPT/HCPCS: 96360; J1642; J7030

== ENCOUNTER 2024-12-29 03:26 | Day surgery (SDC) | payer MEDICARE, OTHER ==
[2024-12-29] MEDS ORDERED: NS 1,000 ML IV SCH (09:00)
[2024-12-29 11:14] VITALS: BP 103/57
== END 2024-12-29 12:32 | disposition home or self-care (01) ==
LOC: ATC 03:26
DX: E86.0 Dehydration (principal); C56.9 Malignant neoplasm of unspecified ovary; N18.9 Chronic kidney disease, unspecified; Z79.899 Other long term (current) drug therapy; Z88.0 Allergy status to penicillin
CPT/HCPCS: 96360; J1642; J7030

== ENCOUNTER 2024-12-31 02:13 | Day surgery (SDC) | payer MEDICARE, OTHER ==
[2024-12-31] MEDS ORDERED: NS 1,000 ML IV SCH (07:05)
[2024-12-31 14:43] VITALS: BP 108/50
== END 2024-12-31 15:57 | disposition home or self-care (01) ==
LOC: ATC 02:13
DX: C56.9 Malignant neoplasm of unspecified ovary (principal); E86.0 Dehydration; N18.9 Chronic kidney disease, unspecified; Z88.0 Allergy status to penicillin; Z79.890 Hormone replacement therapy; Z79.899 Other long term (current) drug therapy
CPT/HCPCS: 96360; J1642; J7030

== ENCOUNTER 2025-01-07 02:04 | Day surgery (SDC) | payer MEDICARE, OTHER ==
[2025-01-07] MEDS ORDERED: NS 1,000 ML IV SCH (07:10)
[2025-01-07 13:55] VITALS: BP 140/68
== END 2025-01-07 14:54 | disposition home or self-care (01) ==
LOC: ATC 02:04
DX: E86.0 Dehydration (principal); C56.1 Malignant neoplasm of right ovary
CPT/HCPCS: 96360; J1642; J7030

== ENCOUNTER 2025-01-17 02:37 | Day surgery (SDC) | payer MEDICARE, OTHER ==
[2025-01-17] MEDS ORDERED: NS 1,000 ML IV SCH (07:00)
[2025-01-17 13:46] VITALS: BP 127/65
== END 2025-01-17 15:00 | disposition home or self-care (01) ==
LOC: ATC 02:37
DX: E86.0 Dehydration (principal); C56.9 Malignant neoplasm of unspecified ovary; N18.9 Chronic kidney disease, unspecified
CPT/HCPCS: 96360; J1642; J7030

== ENCOUNTER 2025-01-19 03:03 | Day surgery (SDC) | payer MEDICARE, OTHER ==
[2025-01-19] MEDS ORDERED: NS 1,000 ML IV SCH (07:05)
[2025-01-19 09:50] VITALS: BP 117/56
== END 2025-01-19 10:52 | disposition home or self-care (01) ==
LOC: ATC 03:03
DX: E86.0 Dehydration (principal); C56.9 Malignant neoplasm of unspecified ovary
CPT/HCPCS: 96360; J1642; J7030

== ENCOUNTER 2025-01-28 01:39 | Day surgery (SDC) | payer MEDICARE, OTHER ==
[2025-01-28] MEDS ORDERED: NS 1,000 ML IV SCH (07:10)
[2025-01-28 10:14] VITALS: BP 95/38
== END 2025-01-28 11:16 | disposition home or self-care (01) ==
LOC: ATC 01:39
DX: E86.0 Dehydration (principal); C56.9 Malignant neoplasm of unspecified ovary; N18.9 Chronic kidney disease, unspecified
CPT/HCPCS: 96360; J1642; J7030

== ENCOUNTER 2025-01-31 11:36 | Emergency (ER) | payer MEDICARE, OTHER ==
[~2025-01-31] VITALS: Ht 154.9 cm; Wt 54.4 kg
[2025-01-31 13:31] VITALS: BP 101/58
[2025-01-31] MEDS ORDERED: ELIQUIS5 M2 PO (16:07)
== END 2025-01-31 13:42 | disposition home or self-care (01) ==
LOC: ER 11:36
DX: M54.17 Radiculopathy, lumbosacral region (principal); I82.501 Chronic embolism and thrombosis of unspecified deep veins of right lower extremity; N18.9 Chronic kidney disease, unspecified; Z88.0 Allergy status to penicillin; Z79.1 Long term (current) use of non-steroidal anti-inflammatories (NSAID); Z79.899 Other long term (current) drug therapy; M79.604 Pain in right leg
CPT/HCPCS: 93971; 99284-25

== ENCOUNTER 2025-02-07 02:03 | Day surgery (SDC) | payer MEDICARE, OTHER ==
[~2025-02-07 02:03] MED LIST changes: +ELIQUIS5 M2 PO
[2025-02-07] MEDS ORDERED: NS 1,000 ML IV SCH (06:40)
[2025-02-07 13:45] VITALS: BP 114/83
[2025-02-08] MEDS ORDERED: NAPR220 PO (07:54)
[2025-02-08] MEDS ORDERED: FAMO20 PO (07:54)
== END 2025-02-07 15:00 | disposition home or self-care (01) ==
LOC: ATC 02:03
DX: C56.9 Malignant neoplasm of unspecified ovary (principal); E86.0 Dehydration; N18.9 Chronic kidney disease, unspecified; Z88.0 Allergy status to penicillin; Z79.890 Hormone replacement therapy; Z79.01 Long term (current) use of anticoagulants; Z79.899 Other long term (current) drug therapy
CPT/HCPCS: 96360; J1642; J7030

== ENCOUNTER 2025-02-08 05:54 | Emergency (ER) | payer MEDICARE, OTHER ==
[~2025-02-08] VITALS: Ht 152.4 cm; Wt 51.3 kg
[2025-02-08 06:45] VITALS: BP 141/71
[2025-02-08] MEDS ORDERED: Ibuprofen 400 MG Tab PO ONE (07:45)
[2025-02-08] MEDS ORDERED: FAMO20 PO (07:54)
[2025-02-08] MEDS ORDERED: NAPR220 PO (07:54)
== END 2025-02-08 08:10 | disposition home or self-care (01) ==
LOC: ER 05:54
DX: M76.31 Iliotibial band syndrome, right leg (principal); M72.9 Fibroblastic disorder, unspecified; Z88.0 Allergy status to penicillin; Z79.890 Hormone replacement therapy; Z79.01 Long term (current) use of anticoagulants; Z79.899 Other long term (current) drug therapy; N18.9 Chronic kidney disease, unspecified
CPT/HCPCS: 99283; A9270

== ENCOUNTER 2025-02-09 04:16 | Day surgery (SDC) | payer MEDICARE, OTHER ==
[~2025-02-09 04:16] MED LIST changes: +FAMO20 PO; +NAPR220 PO
[2025-02-09] MEDS ORDERED: NS 1,000 ML IV SCH (07:15)
[2025-02-09 09:57] VITALS: BP 101/54
== END 2025-02-09 11:06 | disposition home or self-care (01) ==
LOC: ATC 04:16
DX: C56.9 Malignant neoplasm of unspecified ovary (principal); E86.0 Dehydration; N18.9 Chronic kidney disease, unspecified; Z88.0 Allergy status to penicillin; Z79.01 Long term (current) use of anticoagulants; Z79.890 Hormone replacement therapy; Z79.899 Other long term (current) drug therapy
CPT/HCPCS: 96360; J1642; J7030

== ENCOUNTER 2025-02-11 11:52 | Day surgery (SDC) | payer MEDICARE, OTHER ==
[~2025-02-11 11:52] MED LIST changes: +NS 1,000 ML IV SCH
[2025-02-11 13:55] VITALS: BP 126/56
== END 2025-02-11 14:50 | disposition home or self-care (01) ==
LOC: ATC 11:52
DX: E86.0 Dehydration (principal); C56.9 Malignant neoplasm of unspecified ovary; N18.9 Chronic kidney disease, unspecified; Z79.2 Long term (current) use of antibiotics; Z79.890 Hormone replacement therapy; Z79.899 Other long term (current) drug therapy; Z88.0 Allergy status to penicillin
CPT/HCPCS: 96360; J1642; J7030

== ENCOUNTER 2025-02-21 01:26 | Day surgery (SDC) | payer MEDICARE, OTHER ==
[~2025-02-21 01:26] MED LIST changes: -NS 1,000 ML IV SCH
[2025-02-21] MEDS ORDERED: NS 1,000 ML IV SCH (06:45)
[2025-02-21 10:32] VITALS: BP 100/51
== END 2025-02-21 11:24 | disposition home or self-care (01) ==
LOC: ATC 01:26
DX: C56.9 Malignant neoplasm of unspecified ovary (principal); E86.0 Dehydration; N18.9 Chronic kidney disease, unspecified
CPT/HCPCS: 96360; J1642; J7030

== ENCOUNTER 2025-02-28 01:25 | Day surgery (SDC) | payer MEDICARE, OTHER ==
[2025-02-28] MEDS ORDERED: NS 1,000 ML IV SCH (06:55)
[2025-02-28 10:18] VITALS: BP 132/83
== END 2025-02-28 11:30 | disposition home or self-care (01) ==
LOC: ATC 01:25
DX: E86.0 Dehydration (principal); C56.9 Malignant neoplasm of unspecified ovary; Z79.899 Other long term (current) drug therapy; Z88.0 Allergy status to penicillin
CPT/HCPCS: 96360; J1642; J7030

== ENCOUNTER 2025-03-02 04:42 | Day surgery (SDC) | payer MEDICARE, OTHER ==
[2025-03-02] MEDS ORDERED: NS 1,000 ML IV SCH (07:10)
[2025-03-02 13:05] VITALS: BP 110/74
== END 2025-03-02 13:53 | disposition home or self-care (01) ==
LOC: ATC 04:42
DX: E86.0 Dehydration (principal); C56.1 Malignant neoplasm of right ovary; N18.9 Chronic kidney disease, unspecified; Z79.01 Long term (current) use of anticoagulants; Z79.2 Long term (current) use of antibiotics; Z79.890 Hormone replacement therapy; Z79.899 Other long term (current) drug therapy; Z88.0 Allergy status to penicillin
CPT/HCPCS: 96360; J1642; J7030

== ENCOUNTER 2025-03-04 05:01 | Day surgery (SDC) | payer MEDICARE, OTHER ==
[2025-03-04] MEDS ORDERED: NS 1,000 ML IV SCH (07:00)
[2025-03-04 13:39] VITALS: BP 107/53
== END 2025-03-04 14:46 | disposition home or self-care (01) ==
LOC: ATC 05:01
DX: C56.9 Malignant neoplasm of unspecified ovary (principal); E86.0 Dehydration; N18.9 Chronic kidney disease, unspecified; Z88.0 Allergy status to penicillin; Z79.899 Other long term (current) drug therapy
CPT/HCPCS: 96360; J1642; J7030

== ENCOUNTER 2025-03-09 07:48 | Day surgery (SDC) | payer MEDICARE, OTHER ==
[~2025-03-09 07:48] MED LIST changes: +NS 1,000 ML IV SCH
[2025-03-09 07:55] VITALS: BP 112/49
== END 2025-03-09 09:09 | disposition home or self-care (01) ==
LOC: ATC 07:48
DX: C56.9 Malignant neoplasm of unspecified ovary (principal); E86.0 Dehydration; N18.9 Chronic kidney disease, unspecified; Z88.0 Allergy status to penicillin; Z79.01 Long term (current) use of anticoagulants; Z79.899 Other long term (current) drug therapy
CPT/HCPCS: 96360; J1642; J7030

== ENCOUNTER 2025-03-13 06:35 | Day surgery (SDC) | payer MEDICARE, OTHER ==
[~2025-03-13 06:35] MED LIST changes: -NS 1,000 ML IV SCH
[2025-03-13] MEDS ORDERED: NS 1,000 ML IV SCH (06:55)
[2025-03-13 11:02] VITALS: BP 127/60
== END 2025-03-13 12:00 | disposition home or self-care (01) ==
LOC: ATC 06:35
DX: C56.9 Malignant neoplasm of unspecified ovary (principal); E86.0 Dehydration
CPT/HCPCS: 96360; J1642; J7030

== ENCOUNTER 2025-04-19 13:00 | Day surgery (SDC) | payer MEDICARE, OTHER ==
[2025-04-19] MEDS ORDERED: NS 1,000 ML IV SCH (13:05)
[2025-04-19 13:20] VITALS: BP 121/45
== END 2025-04-19 14:28 | disposition home or self-care (01) ==
LOC: ATC 13:00
DX: C56.9 Malignant neoplasm of unspecified ovary (principal); E86.0 Dehydration; N13.30 Unspecified hydronephrosis; K59.00 Constipation, unspecified; Z88.0 Allergy status to penicillin; N18.9 Chronic kidney disease, unspecified; Z90.711 Acquired absence of uterus with remaining cervical stump; Z90.5 Acquired absence of kidney; Z90.49 Acquired absence of other specified parts of digestive tract; Z96.641 Presence of right artificial hip joint; Z79.899 Other long term (current) drug therapy; Z79.01 Long term (current) use of anticoagulants
CPT/HCPCS: 74177; 80053; 81001; 83690; 85025; 87086; 93005; 93010; 96360; 99284-25; J1642; J2405; J7030; Q9967

== ENCOUNTER 2025-04-19 16:08 | Emergency (ER) | payer MEDICARE, OTHER ==
[~2025-04-19] VITALS: Ht 157.5 cm; Wt 63.5 kg
[2025-04-19] MEDS ORDERED: Ondansetron HCl 2 MG / ML 2ML Vial IV ONE (16:20)
[2025-04-19 16:32] LABS: BASOPHILS ABSOLUTE AUTO 0.01 K/mm3 (0.00-0.23); BASOPHILS PERCENT AUTO 0 % (0-2); EOSINOPHILS ABSOLUTE AUTO 0.14 K/mm3 (0.00-0.68); EOSINOPHILS PERCENT AUTO 5 % (0-6); Hematocrit 23.2 % (33.0-51.0); Hemoglobin 7.6 g/dL (11.5-16.0); IMMATURE GRAN ABSOLUTE AUTO 0.01 K/mm3 (0.00-0.10); IMMATURE GRAN PERCENT AUTO 0 % (0-1); LYMPHOCYTES PERCENT AUTO 26 % (21-46); MONOCYTES ABSOLUTE AUTO 0.39 K/mm3 (0.16-1.47); MONOCYTES PERCENT AUTO 13 % (4-13); Mean Corpuscular HGB Conc 32.8 g/dL (31.5-36.5); Mean Corpuscular Volume 107 fL (80-100); Mean Platelet Volume 11.2 fL (9.1-12.4); NEUTROPHILS ABSOLUTE AUTO 1.71 K/mm3 (1.96-9.15); NEUTROPHILS PERCENT AUTO 56 % (41-73); NRBC ABSOLUTE 0.02 K/mm3 (0.00-0.02); NRBC Auto 0.7 /100 WBC (0.0-0.2); Platelet Count 75 K/mm3 (150-400); RDW Coefficient Variation 17.6 % (11.7-14.2); RDW Standard Deviation 68.7 fL (35.1-46.3); Red Blood Cell Count 2.17 M/mm3 (3.80-5.20); White Blood Cell Count 3.06 K/mm3 (4.00-11.30)
[2025-04-19 17:08] LABS: Albumin, Blood 2.6 g/dL (3.4-5.0); Albumin/Globulin Ratio 0.8 (0.8-1.8); Bilirubin, Total 0.5 mg/dL (0.1-1.0); Bun/Creatinine Ratio 9.5 (12.0-20.0); Calcium, Blood 8.2 mg/dL (8.5-10.1); Creatinine, Blood 2.01 mg/dL (0.40-1.00); Globulin, Blood 3.4 g/dL (2.2-4.0)
[2025-04-19 19:32] LABS: Source, Urine Voided
[2025-04-19 19:45] VITALS: BP 149/81
[2025-04-19 20:07] LABS: Appearance, Urine Clear (Clear); Bilirubin, Urine Neg (Neg); Blood, Urine 4+ (Neg); Glucose Qualitative, Urine Neg (Neg); Ketones, Urine Neg (Neg); Leukocyte Esterase, Urine 2+ (Neg); Nitrite, Urine Neg (Neg); Protein, Urine 1+ (Neg); Urobilinogen, Urine NORM (Normal)
[2025-04-19 20:18] LABS: Color, Urine Pale Yellow (P-Yellow)
[2025-04-19 20:19] LABS: Bacteria Few /hpf; Red Blood Cells, Urine 25-50 /hpf (0-2); Squamous Epithelial Cells Few /hpf (Few)
== END 2025-04-19 20:58 | disposition home or self-care (01) ==
LOC: ER 16:08
PROVIDERS: Emergency Medicine
DX: K76.89 Other specified diseases of liver (principal); N13.30 Unspecified hydronephrosis; K59.00 Constipation, unspecified; Z88.0 Allergy status to penicillin; N18.9 Chronic kidney disease, unspecified; Z90.711 Acquired absence of uterus with remaining cervical stump; Z90.5 Acquired absence of kidney; Z90.49 Acquired absence of other specified parts of digestive tract; Z96.641 Presence of right artificial hip joint; Z79.899 Other long term (current) drug therapy; Z79.01 Long term (current) use of anticoagulants; C56.9 Malignant neoplasm of unspecified ovary; E86.0 Dehydration
CPT/HCPCS: 74177; 80053; 81001; 83690; 85025; 87086; 93005; 93010; 96360; 99284-25; J1642; J2405; J7030; Q9967

== ENCOUNTER 2025-05-02 01:36 | Day surgery (SDC) | payer MEDICARE, OTHER ==
[2025-05-02] MEDS ORDERED: NS 1,000 ML IV SCH (07:15)
[2025-05-02 14:46] VITALS: BP 116/52
== END 2025-05-02 15:58 | disposition home or self-care (01) ==
LOC: ATC 01:36
DX: E86.0 Dehydration (principal); C56.1 Malignant neoplasm of right ovary; D63.0 Anemia in neoplastic disease; N18.9 Chronic kidney disease, unspecified; Z79.01 Long term (current) use of anticoagulants; Z79.890 Hormone replacement therapy; Z79.899 Other long term (current) drug therapy; Z88.0 Allergy status to penicillin
CPT/HCPCS: 96360; J1642; J7030

== ENCOUNTER 2025-05-04 00:58 | Day surgery (SDC) | payer MEDICARE, OTHER ==
[2025-05-04] MEDS ORDERED: NS 1,000 ML IV SCH (08:35)
[2025-05-04] MEDS ORDERED: NS 1,000 ML IV PRN (08:40)
[2025-05-04 09:21] VITALS: BP 121/56
== END 2025-05-04 10:24 | disposition home or self-care (01) ==
LOC: ATC 00:58
DX: C56.9 Malignant neoplasm of unspecified ovary (principal); E86.0 Dehydration
CPT/HCPCS: 96360; J1642; J7030

== ENCOUNTER 2025-05-06 00:39 | Day surgery (SDC) | payer MEDICARE, OTHER ==
[2025-05-06] MEDS ORDERED: NS 1,000 ML IV SCH (07:35)
[2025-05-06 10:45] VITALS: BP 108/46
== END 2025-05-06 11:56 | disposition home or self-care (01) ==
LOC: ATC 00:39
DX: C56.1 Malignant neoplasm of right ovary (principal); E86.0 Dehydration; N18.9 Chronic kidney disease, unspecified; Z79.01 Long term (current) use of anticoagulants; Z79.2 Long term (current) use of antibiotics; Z79.890 Hormone replacement therapy; Z79.899 Other long term (current) drug therapy; Z88.0 Allergy status to penicillin; Z90.5 Acquired absence of kidney
CPT/HCPCS: 96360; J1642; J7030

== ENCOUNTER 2025-05-13 01:32 | Day surgery (SDC) | payer MEDICARE, OTHER ==
[2025-05-13] MEDS ORDERED: NS 1,000 ML IV SCH (07:00)
[2025-05-13 09:55] VITALS: BP 117/69
== END 2025-05-13 11:05 | disposition home or self-care (01) ==
LOC: ATC 01:32
DX: C56.1 Malignant neoplasm of right ovary (principal); E86.0 Dehydration; N18.9 Chronic kidney disease, unspecified; Z88.0 Allergy status to penicillin
CPT/HCPCS: 96360; J1642; J7030

== ENCOUNTER 2025-05-22 04:11 | Day surgery (SDC) | payer MEDICARE, OTHER ==
[2025-05-22] MEDS ORDERED: NS 1,000 ML IV SCH (06:50)
[2025-05-22 14:59] VITALS: BP 123/55
== END 2025-05-22 15:45 | disposition home or self-care (01) ==
LOC: ATC 04:11
DX: C56.9 Malignant neoplasm of unspecified ovary (principal); E86.0 Dehydration; N18.9 Chronic kidney disease, unspecified; Z79.01 Long term (current) use of anticoagulants; Z79.899 Other long term (current) drug therapy; Z79.890 Hormone replacement therapy; Z88.0 Allergy status to penicillin
CPT/HCPCS: 96360; J1642; J7030

== ENCOUNTER 2025-05-24 04:28 | Day surgery (SDC) | payer MEDICARE, OTHER ==
[2025-05-24] MEDS ORDERED: NS 1,000 ML IV SCH (06:55)
[2025-05-24 16:02] VITALS: BP 95/50
== END 2025-05-24 17:00 | disposition home or self-care (01) ==
LOC: ATC 04:28
DX: E86.0 Dehydration (principal); C56.2 Malignant neoplasm of left ovary; N18.9 Chronic kidney disease, unspecified
CPT/HCPCS: 96360; J1642; J7030

== ENCOUNTER 2025-05-25 13:29 | Emergency (ER) | payer OTHER, MEDICARE ==
[~2025-05-25] VITALS: Ht 154.9 cm; Wt 51.3 kg
[2025-05-25 14:11] VITALS: BP 130/54
[2025-05-26] MEDS ORDERED: CEPH500 PO (23:00)
== END 2025-05-25 15:33 | disposition home or self-care (01) ==
LOC: ER 13:29
DX: S06.9X1A Unspecified intracranial injury with loss of consciousness of 30 minutes or less, initial encounter (principal); I25.2 Old myocardial infarction; W01.0XXA Fall on same level from slipping, tripping and stumbling without subsequent striking against object, initial encounter; Z79.899 Other long term (current) drug therapy; Z88.0 Allergy status to penicillin
CPT/HCPCS: 70450; 99284-25

== ENCOUNTER 2025-05-26 17:24 | Emergency (ER) | payer MEDICARE, OTHER ==
[~2025-05-26] VITALS: Ht 152.4 cm; Wt 51.3 kg
[2025-05-26 17:31] VITALS: BP 123/98
[2025-05-26 20:29] LABS: BASOPHILS ABSOLUTE AUTO 0.02 K/mm3 (0.00-0.23); BASOPHILS PERCENT AUTO 1 % (0-2); EOSINOPHILS ABSOLUTE AUTO 0.12 K/mm3 (0.00-0.68); EOSINOPHILS PERCENT AUTO 3 % (0-6); Hematocrit 23.6 % (33.0-51.0); Hemoglobin 7.5 g/dL (11.5-16.0); IMMATURE GRAN ABSOLUTE AUTO 0.04 K/mm3 (0.00-0.10); IMMATURE GRAN PERCENT AUTO 1 % (0-1); LYMPHOCYTES ABSOLUTE AUTO 0.65 K/mm3 (0.84-5.20); LYMPHOCYTES PERCENT AUTO 15 % (21-46); MONOCYTES ABSOLUTE AUTO 0.44 K/mm3 (0.16-1.47); MONOCYTES PERCENT AUTO 10 % (4-13); Mean Corpuscular HGB Conc 31.8 g/dL (31.5-36.5); Mean Corpuscular Volume 111 fL (80-100); NEUTROPHILS ABSOLUTE AUTO 3.09 K/mm3 (1.96-9.15); NEUTROPHILS PERCENT AUTO 71 % (41-73); NRBC ABSOLUTE 0.00 K/mm3 (0.00-0.02); NRBC Auto 0.0 /100 WBC (0.0-0.2); Platelet Count 98 K/mm3 (150-400); RDW Coefficient Variation 17.6 % (11.7-14.2); RDW Standard Deviation 72.4 fL (35.1-46.3)
[2025-05-26 20:56] LABS: Magnesium, Blood 2.1 mg/dL (1.6-2.4)
[2025-05-26 20:57] LABS: Alanine Aminotransfer (ALT/SGP 17.0 U/L (12-78); Albumin, Blood 2.5 g/dL (3.4-5.0); Albumin/Globulin Ratio 0.8 (0.8-1.8); Anion Gap 8.0 mmol/L (3-11); Aspartate Aminotrans (AST/SGOT 30.0 U/L (12-37); Bilirubin, Total 0.4 mg/dL (0.1-1.0); Blood Urea Nitrogen 28.0 mg/dL (8-24); CO2, Blood 23.0 mmol/L (21-32); Calcium, Blood 8.2 mg/dL (8.5-10.1); Chloride, Blood 113.0 mmol/L (98-108); Creatinine, Blood 1.65 mg/dL (0.40-1.00); Globulin, Blood 3.3 g/dL (2.2-4.0); Glucose, Blood 157.0 mg/dL (70-99); Potassium, Blood 4.0 mmol/L (3.5-5.5); Sodium, Blood 140.0 mmol/L (136-145); Total Protein, Blood 5.8 g/dL (6.4-8.2)
[2025-05-26 21:58] LABS: Source, Urine Clean Catch
[2025-05-26 22:00] LABS: Bilirubin, Urine Neg (Neg); Glucose Qualitative, Urine Neg (Neg); Ketones, Urine Neg (Neg); Leukocyte Esterase, Urine 3+ (Neg); Protein, Urine 3+ (Neg); Specific Gravity, Urine 1.010 (1.003-1.022); Urobilinogen, Urine NORM (Normal)
[2025-05-26 22:05] LABS: Color, Urine Yellow (P-Yellow)
[2025-05-26 22:09] LABS: Red Blood Cells, Urine TNTC /hpf (0-2)
[2025-05-26] MEDS ORDERED: CEPH500 PO (23:00)
== END 2025-05-26 23:26 | disposition home or self-care (01) ==
LOC: ER 17:24
PROVIDERS: Emergency Medicine
DX: N13.6 Pyonephrosis (principal); N30.00 Acute cystitis without hematuria; R55 Syncope and collapse; E03.9 Hypothyroidism, unspecified; N18.9 Chronic kidney disease, unspecified; I25.2 Old myocardial infarction; Z96.0 Presence of urogenital implants; Z88.0 Allergy status to penicillin; Z79.890 Hormone replacement therapy; Z79.01 Long term (current) use of anticoagulants; Z79.899 Other long term (current) drug therapy; Z90.5 Acquired absence of kidney
CPT/HCPCS: 73562-LT; 74176; 76770; 80053; 81001; 83690; 83735; 85025; 93005; 93010; 99284-25; A9270; J1642

== ENCOUNTER 2025-05-28 14:08 | Day surgery (SDC) | payer MEDICARE, OTHER ==
[~2025-05-28 14:08] MED LIST changes: +CEPH500 PO; +NS 1,000 ML IV SCH
[2025-05-28 14:49] VITALS: BP 104/47
== END 2025-05-28 16:02 | disposition home or self-care (01) ==
LOC: ATC 14:08
DX: E86.0 Dehydration (principal); C56.1 Malignant neoplasm of right ovary
CPT/HCPCS: 96360; J1642; J7030

== ENCOUNTER 2025-05-30 14:37 | Day surgery (SDC) | payer MEDICARE, OTHER ==
[~2025-05-30 14:37] MED LIST changes: -NS 1,000 ML IV SCH
[2025-05-30] MEDS ORDERED: NS 1,000 ML IV SCH (14:40)
[2025-05-30 14:44] VITALS: BP 110/61
== END 2025-05-30 15:58 | disposition home or self-care (01) ==
LOC: ATC 14:37
DX: E86.0 Dehydration (principal); C56.1 Malignant neoplasm of right ovary
CPT/HCPCS: 96360; J1642; J7030

== ENCOUNTER 2025-06-01 10:12 | Day surgery (SDC) | payer MEDICARE, OTHER ==
[~2025-06-01 10:12] MED LIST changes: +NS 1,000 ML IV SCH
[2025-06-01 14:08] VITALS: BP 129/44
--- NOTE | 2025-06-01 15:21 | NUR ---
PATIENT STARTED REPORTING SEVERE PAIN IN HER R FLANK WITH "STABBING PAIN TO THE BELLY" SHE TRIED USING THE BATHROOM AND THERE WAS A SMALL AMOUNT OF BLOOD WHEN SHE VOIDED. PATIENT JUST COMPLETED HER COURSE OF ANTIBIOTICS FOR A UTI. HER DAUGHTER LOI ARRIVED AND TOOK HER TO ER TO BE EVALUATED. LEFT [facility] ACCESSED FOR USE IN ER
== END 2025-06-01 15:09 | disposition home or self-care (01) ==
LOC: ATC 10:12
DX: E86.0 Dehydration (principal); C56.9 Malignant neoplasm of unspecified ovary; N18.9 Chronic kidney disease, unspecified
CPT/HCPCS: J7030

== ENCOUNTER 2025-06-01 15:12 | Emergency (ER) | payer MEDICARE, OTHER ==
[~2025-06-01] VITALS: Ht 154.9 cm; Wt 51.3 kg
[~2025-06-01 15:12] MED LIST changes: -NS 1,000 ML IV SCH
[2025-06-01 15:34] LABS: BASOPHILS ABSOLUTE AUTO 0.01 K/mm3 (0.00-0.23); BASOPHILS PERCENT AUTO 0 % (0-2); EOSINOPHILS ABSOLUTE AUTO 0.17 K/mm3 (0.00-0.68); EOSINOPHILS PERCENT AUTO 5 % (0-6); Hematocrit 23.4 % (33.0-51.0); Hemoglobin 7.5 g/dL (11.5-16.0); IMMATURE GRAN ABSOLUTE AUTO 0.02 K/mm3 (0.00-0.10); IMMATURE GRAN PERCENT AUTO 1 % (0-1); LYMPHOCYTES ABSOLUTE AUTO 0.94 K/mm3 (0.84-5.20); LYMPHOCYTES PERCENT AUTO 26 % (21-46); MONOCYTES ABSOLUTE AUTO 0.50 K/mm3 (0.16-1.47); MONOCYTES PERCENT AUTO 14 % (4-13); Mean Corpuscular HGB Conc 32.1 g/dL (31.5-36.5); Mean Corpuscular Volume 111 fL (80-100); NEUTROPHILS ABSOLUTE AUTO 1.99 K/mm3 (1.96-9.15); NEUTROPHILS PERCENT AUTO 55 % (41-73); NRBC ABSOLUTE 0.02 K/mm3 (0.00-0.02); NRBC Auto 0.6 /100 WBC (0.0-0.2); Platelet Count 75 K/mm3 (150-400); RDW Coefficient Variation 17.8 % (11.7-14.2); RDW Standard Deviation 71.7 fL (35.1-46.3)
[2025-06-01 15:39] VITALS: BP 181/81
[2025-06-01 15:58] LABS: Alanine Aminotransfer (ALT/SGP 21.0 U/L (12-78); Albumin, Blood 2.6 g/dL (3.4-5.0); Albumin/Globulin Ratio 0.8 (0.8-1.8); Anion Gap 8.0 mmol/L (3-11); Aspartate Aminotrans (AST/SGOT 37.0 U/L (12-37); Bilirubin, Total 0.6 mg/dL (0.1-1.0); Blood Urea Nitrogen 21.0 mg/dL (8-24); CO2, Blood 22.0 mmol/L (21-32); Calcium, Blood 7.8 mg/dL (8.5-10.1); Chloride, Blood 116.0 mmol/L (98-108); Creatinine, Blood 1.52 mg/dL (0.40-1.00); Globulin, Blood 3.4 g/dL (2.2-4.0); Glucose, Blood 88.0 mg/dL (70-99); Potassium, Blood 4.3 mmol/L (3.5-5.5); Sodium, Blood 142.0 mmol/L (136-145); Total Protein, Blood 6.0 g/dL (6.4-8.2)
[2025-06-01] MEDS ORDERED: Ketorolac Tromethamine 15mg Vial IV ONE (17:15)
[2025-06-01 17:41] LABS: Source, Urine Clean Catch
[2025-06-01 17:44] LABS: Bilirubin, Urine Neg (Neg); Color, Urine Amber (P-Yellow); Glucose Qualitative, Urine Neg (Neg); Ketones, Urine Neg (Neg); Leukocyte Esterase, Urine 3+ (Neg); Protein, Urine 3+ (Neg); Specific Gravity, Urine 1.005 (1.003-1.022); Urobilinogen, Urine NORM (Normal)
[2025-06-01 18:09] LABS: Red Blood Cells, Urine TNTC /hpf (0-2)
[2025-06-01 18:10] LABS: White Blood Cells, Urine TNTC /hpf (0-5)
== END 2025-06-01 19:10 | disposition home or self-care (01) ==
LOC: ER 15:12
PROVIDERS: Emergency Medicine
DX: R10.31 Right lower quadrant pain (principal); Z96.0 Presence of urogenital implants; Z88.0 Allergy status to penicillin; Z79.01 Long term (current) use of anticoagulants; N18.9 Chronic kidney disease, unspecified; Z90.710 Acquired absence of both cervix and uterus; Z91.49 Other personal history of psychological trauma, not elsewhere classified
CPT/HCPCS: 76770; 80053; 81001; 85025; J1642; J1885

== ENCOUNTER 2025-06-13 02:32 | Day surgery (SDC) | payer MEDICARE, OTHER ==
[2025-06-13] MEDS ORDERED: NS 1,000 ML IV SCH (07:00)
[2025-06-13 14:00] VITALS: BP 118/53
== END 2025-06-13 14:55 | disposition home or self-care (01) ==
LOC: ATC 02:32
DX: C56.1 Malignant neoplasm of right ovary (principal); E86.0 Dehydration; N18.9 Chronic kidney disease, unspecified; Z79.2 Long term (current) use of antibiotics; Z79.890 Hormone replacement therapy; Z79.899 Other long term (current) drug therapy; Z88.0 Allergy status to penicillin
CPT/HCPCS: 96360; J1642; J7030

== ENCOUNTER 2025-06-15 02:07 | Day surgery (SDC) | payer MEDICARE, OTHER ==
[2025-06-15] MEDS ORDERED: NS 1,000 ML IV SCH (06:55)
[2025-06-15 15:20] VITALS: BP 106/43
== END 2025-06-15 16:16 | disposition home or self-care (01) ==
LOC: ATC 02:07
DX: E86.0 Dehydration (principal); C56.1 Malignant neoplasm of right ovary
CPT/HCPCS: 96360; J1642; J7030

== ENCOUNTER 2025-06-17 00:39 | Day surgery (SDC) | payer MEDICARE, OTHER ==
[2025-06-17] MEDS ORDERED: NS 1,000 ML IV SCH (07:05)
[2025-06-17 10:03] VITALS: BP 107/46
--- NOTE | 2025-06-17 11:20 | NUR ---
Pt requested to stop IV hydration prior to completing the bag.
== END 2025-06-17 11:11 | disposition home or self-care (01) ==
LOC: ATC 00:39
DX: E86.0 Dehydration (principal); C56.9 Malignant neoplasm of unspecified ovary; N18.9 Chronic kidney disease, unspecified; Z88.0 Allergy status to penicillin; Z79.890 Hormone replacement therapy; Z79.899 Other long term (current) drug therapy
CPT/HCPCS: 96360; J1642; J7030

== ENCOUNTER 2025-06-22 00:49 | Day surgery (SDC) | payer MEDICARE, OTHER ==
[2025-06-22] MEDS ORDERED: NS 1,000 ML IV ONE (08:43)
[2025-06-22 15:16] VITALS: BP 115/54
[2025-06-22 16:13] VITALS: BP 120/75
--- NOTE | 2025-06-22 16:17 | NUR ---
PT INITIALLY REQUESTED 750ML INFUISION. AFTER 750ML INFUSION PT SAID ADD SOME MORE. ADDED ANOTHER 200ML FOR A TOTAL OF 950ML. PT AT THIS POINT SAID THAT WAS ENOUGH FLUIDS.
[2025-06-22] MEDS ORDERED: NS 1,000 ML IV SCH (17:00)
== END 2025-06-22 16:17 | disposition home or self-care (01) ==
LOC: ATC 00:49
DX: E86.0 Dehydration (principal); C56.9 Malignant neoplasm of unspecified ovary; N18.9 Chronic kidney disease, unspecified; K59.00 Constipation, unspecified; Z88.0 Allergy status to penicillin; Z79.899 Other long term (current) drug therapy
CPT/HCPCS: 96360; J1642; J7030

== ENCOUNTER 2025-07-05 09:18 | Day surgery (SDC) | payer MEDICARE, OTHER ==
[2025-07-05] MEDS ORDERED: NS 1,000 ML IV SCH (09:50)
[2025-07-05 10:55] VITALS: BP 127/59
== END 2025-07-05 11:51 | disposition home or self-care (01) ==
LOC: ATC 09:18
DX: E86.0 Dehydration (principal); C56.9 Malignant neoplasm of unspecified ovary; N18.9 Chronic kidney disease, unspecified
CPT/HCPCS: 96360; J1642; J7030

== ENCOUNTER 2025-07-11 07:34 | Day surgery (SDC) | payer MEDICARE, OTHER ==
[2025-07-11] MEDS ORDERED: NS 1,000 ML IV SCH (08:10)
[2025-07-11 10:03] VITALS: BP 85/48
[2025-07-11 10:44] LABS: BASOPHILS ABSOLUTE AUTO 0.01 K/mm3 (0.00-0.23); BASOPHILS PERCENT AUTO 0 % (0-2); EOSINOPHILS ABSOLUTE AUTO 0.11 K/mm3 (0.00-0.68); EOSINOPHILS PERCENT AUTO 3 % (0-6); Hematocrit 25.3 % (33.0-51.0); Hemoglobin 8.3 g/dL (11.5-16.0); IMMATURE GRAN ABSOLUTE AUTO 0.02 K/mm3 (0.00-0.10); IMMATURE GRAN PERCENT AUTO 1 % (0-1); LYMPHOCYTES ABSOLUTE AUTO 0.62 K/mm3 (0.84-5.20); LYMPHOCYTES PERCENT AUTO 15 % (21-46); MONOCYTES ABSOLUTE AUTO 0.60 K/mm3 (0.16-1.47); MONOCYTES PERCENT AUTO 15 % (4-13); Mean Corpuscular HGB Conc 32.8 g/dL (31.5-36.5); Mean Corpuscular Volume 112 fL (80-100); NEUTROPHILS ABSOLUTE AUTO 2.73 K/mm3 (1.96-9.15); NEUTROPHILS PERCENT AUTO 67 % (41-73); NRBC ABSOLUTE 0.02 K/mm3 (0.00-0.02); NRBC Auto 0.5 /100 WBC (0.0-0.2); Platelet Count 103 K/mm3 (150-400); RDW Coefficient Variation 17.1 % (11.7-14.2); RDW Standard Deviation 68.2 fL (35.1-46.3)
[2025-07-11 14:28] LABS: Alanine Aminotransfer (ALT/SGP 23.0 U/L (12-78); Albumin, Blood 2.8 g/dL (3.4-5.0); Albumin/Globulin Ratio 0.8 (0.8-1.8); Anion Gap 5.0 mmol/L (3-11); Aspartate Aminotrans (AST/SGOT 41.0 U/L (12-37); Bilirubin, Total 0.6 mg/dL (0.1-1.0); Blood Urea Nitrogen 24.0 mg/dL (8-24); CO2, Blood 27.0 mmol/L (21-32); Calcium, Blood 8.5 mg/dL (8.5-10.1); Chloride, Blood 110.0 mmol/L (98-108); Creatinine, Blood 2.03 mg/dL (0.40-1.00); Globulin, Blood 3.4 g/dL (2.2-4.0); Glucose, Blood 108.0 mg/dL (70-99); Magnesium, Blood 2.4 mg/dL (1.6-2.4); Phosphorus, Blood 4.0 mg/dL (2.5-4.9); Potassium, Blood 4.3 mmol/L (3.5-5.5); Sodium, Blood 138.0 mmol/L (136-145); Thyroid Stimulating Hormone 2.06 uIU/mL (0.360-4.800); Total Protein, Blood 6.2 g/dL (6.4-8.2)
[2025-07-13 09:57] LABS: VITAMIN D,1,25-DIHYDROXY 44.5 pg/mL (19.9-79.3)
== END 2025-07-11 11:05 | disposition home or self-care (01) ==
LOC: ATC 07:34
PROVIDERS: Hospitalist
DX: C56.1 Malignant neoplasm of right ovary (principal); E86.0 Dehydration; N18.4 Chronic kidney disease, stage 4 (severe); E03.9 Hypothyroidism, unspecified
CPT/HCPCS: 80053; 82652; 83735; 83970; 84100; 84443; 85025; 96360; J1642; J7030

== ENCOUNTER 2025-07-17 03:50 | Day surgery (SDC) | payer MEDICARE, OTHER ==
[2025-07-17] MEDS ORDERED: NS 1,000 ML IV SCH (07:05)
[2025-07-17 16:14] VITALS: BP 93/59
== END 2025-07-17 17:05 | disposition home or self-care (01) ==
LOC: ATC 03:50
DX: C56.1 Malignant neoplasm of right ovary (principal); E86.0 Dehydration; N18.4 Chronic kidney disease, stage 4 (severe); Z79.01 Long term (current) use of anticoagulants; Z79.2 Long term (current) use of antibiotics; Z79.890 Hormone replacement therapy; Z79.899 Other long term (current) drug therapy; Z88.0 Allergy status to penicillin
CPT/HCPCS: 96360; J1642; J7030

== ENCOUNTER 2025-07-26 07:45 | Day surgery (SDC) | payer MEDICARE, OTHER ==
[~2025-07-26 07:45] MED LIST changes: +NS 1,000 ML IV SCH
[2025-07-26 11:14] VITALS: BP 127/82
== END 2025-07-26 12:39 | disposition home or self-care (01) ==
LOC: ATC 07:45
DX: C56.1 Malignant neoplasm of right ovary (principal); E86.0 Dehydration; N18.4 Chronic kidney disease, stage 4 (severe); E03.9 Hypothyroidism, unspecified; Z79.01 Long term (current) use of anticoagulants; Z79.2 Long term (current) use of antibiotics; Z79.890 Hormone replacement therapy; Z79.899 Other long term (current) drug therapy; Z88.0 Allergy status to penicillin
CPT/HCPCS: 96360; J1642; J7030

== ENCOUNTER 2025-07-30 01:18 | Day surgery (SDC) | payer MEDICARE, OTHER ==
[~2025-07-30 01:18] MED LIST changes: -NS 1,000 ML IV SCH
[2025-07-30] MEDS ORDERED: NS 1,000 ML IV SCH (07:00)
[2025-07-30 14:06] VITALS: BP 107/43
[2025-07-30 15:13] VITALS: BP 140/69
== END 2025-07-30 15:18 | disposition home or self-care (01) ==
LOC: ATC 01:18
DX: E86.0 Dehydration (principal); C56.9 Malignant neoplasm of unspecified ovary; N18.4 Chronic kidney disease, stage 4 (severe); Z88.0 Allergy status to penicillin
CPT/HCPCS: J1642; J7030

== ENCOUNTER 2025-08-02 01:31 | Day surgery (SDC) | payer MEDICARE, OTHER ==
[2025-08-02] MEDS ORDERED: NS 1,000 ML IV SCH (07:00)
[2025-08-02 16:01] VITALS: BP 104/43
== END 2025-08-02 16:50 | disposition home or self-care (01) ==
LOC: ATC 01:31
DX: E86.0 Dehydration (principal); C56.9 Malignant neoplasm of unspecified ovary; N18.9 Chronic kidney disease, unspecified; Z88.0 Allergy status to penicillin
CPT/HCPCS: 96360; J1642; J7030

== ENCOUNTER 2025-08-05 00:20 | Day surgery (SDC) | payer MEDICARE, OTHER ==
[2025-08-05] MEDS ORDERED: NS 1,000 ML IV SCH (06:00)
[2025-08-05 07:38] VITALS: BP 115/48
--- NOTE | 2025-08-05 08:30 | NUR ---
PER PT REQUEST, IVF STOPPED SO COULD MAKE APPOINTMENT FOR PET SCAN @ 0900.
== END 2025-08-05 08:30 | disposition home or self-care (01) ==
LOC: ATC 00:20
DX: E86.0 Dehydration (principal); N18.9 Chronic kidney disease, unspecified; Z88.0 Allergy status to penicillin; C56.1 Malignant neoplasm of right ovary
CPT/HCPCS: 78815; 96360; A9552; J1642; J7030

== ENCOUNTER 2025-08-06 13:19 | Day surgery (SDC) | payer MEDICARE, OTHER ==
[~2025-08-06 13:19] MED LIST changes: +NS 1,000 ML IV SCH
[2025-08-06 13:36] VITALS: BP 123/52
== END 2025-08-06 14:24 | disposition home or self-care (01) ==
LOC: ATC 13:19
DX: E86.0 Dehydration (principal); C56.9 Malignant neoplasm of unspecified ovary; N18.9 Chronic kidney disease, unspecified; Z79.899 Other long term (current) drug therapy; Z88.0 Allergy status to penicillin
CPT/HCPCS: 96360; J1642; J7030

== ENCOUNTER 2025-08-16 00:45 | Day surgery (SDC) | payer MEDICARE, OTHER ==
[~2025-08-16 00:45] MED LIST changes: -NS 1,000 ML IV SCH
[2025-08-16] MEDS ORDERED: NS 1,000 ML IV SCH (06:00)
[2025-08-16 10:10] VITALS: BP 125/38
== END 2025-08-16 11:02 | disposition home or self-care (01) ==
LOC: ATC 00:45
DX: E86.0 Dehydration (principal); C56.9 Malignant neoplasm of unspecified ovary; N18.9 Chronic kidney disease, unspecified
CPT/HCPCS: 96360; J1642; J7030

== ENCOUNTER 2025-08-23 01:11 | Day surgery (SDC) | payer MEDICARE, OTHER ==
[~2025-08-23 01:11] MED LIST changes: +NS 1,000 ML IV SCH
[2025-08-23] MEDS ORDERED: NS 1,000 ML IV SCH (06:00)
[2025-08-23 07:56] VITALS: BP 104/78
== END 2025-08-23 08:58 | disposition home or self-care (01) ==
LOC: ATC 01:11
DX: E86.0 Dehydration (principal); C56.9 Malignant neoplasm of unspecified ovary; K59.00 Constipation, unspecified; N18.9 Chronic kidney disease, unspecified; Z51.81 Encounter for therapeutic drug level monitoring; I35.8 Other nonrheumatic aortic valve disorders; I51.89 Other ill-defined heart diseases; Z79.899 Other long term (current) drug therapy
CPT/HCPCS: 93306; 93356; 96360; J1642; J7030

== ENCOUNTER 2025-08-27 01:14 | Day surgery (SDC) | payer MEDICARE, OTHER ==
[~2025-08-27 01:14] MED LIST changes: -NS 1,000 ML IV SCH
[2025-08-27] MEDS ORDERED: NS 1,000 ML IV SCH (07:05)
[2025-08-27 15:58] LABS: BASOPHILS ABSOLUTE AUTO 0.02 K/mm3 (0.00-0.23); BASOPHILS PERCENT AUTO 1 % (0-2); EOSINOPHILS ABSOLUTE AUTO 0.20 K/mm3 (0.00-0.68); EOSINOPHILS PERCENT AUTO 6 % (0-6); Hematocrit 28.1 % (33.0-51.0); Hemoglobin 8.9 g/dL (11.5-16.0); IMMATURE GRAN ABSOLUTE AUTO 0.01 K/mm3 (0.00-0.10); IMMATURE GRAN PERCENT AUTO 0 % (0-1); LYMPHOCYTES ABSOLUTE AUTO 1.02 K/mm3 (0.84-5.20); LYMPHOCYTES PERCENT AUTO 28 % (21-46); MONOCYTES ABSOLUTE AUTO 0.41 K/mm3 (0.16-1.47); MONOCYTES PERCENT AUTO 11 % (4-13); Mean Corpuscular HGB Conc 31.7 g/dL (31.5-36.5); Mean Corpuscular Volume 110 fL (80-100); NEUTROPHILS ABSOLUTE AUTO 1.94 K/mm3 (1.96-9.15); NEUTROPHILS PERCENT AUTO 54 % (41-73); NRBC ABSOLUTE 0.00 K/mm3 (0.00-0.02); NRBC Auto 0.0 /100 WBC (0.0-0.2); Platelet Count 103 K/mm3 (150-400); RDW Coefficient Variation 16.8 % (11.7-14.2); RDW Standard Deviation 67.7 fL (35.1-46.3)
[2025-08-27 16:53] LABS: Alanine Aminotransfer (ALT/SGP 28.0 U/L (12-78); Albumin, Blood 3.0 g/dL (3.4-5.0); Albumin/Globulin Ratio 0.8 (0.8-1.8); Anion Gap 5.0 mmol/L (3-11); Aspartate Aminotrans (AST/SGOT 41.0 U/L (12-37); Bilirubin, Total 0.7 mg/dL (0.1-1.0); Blood Urea Nitrogen 21.0 mg/dL (8-24); CO2, Blood 27.0 mmol/L (21-32); Calcium, Blood 8.7 mg/dL (8.5-10.1); Chloride, Blood 111.0 mmol/L (98-108); Creatinine, Blood 1.68 mg/dL (0.40-1.00); Globulin, Blood 3.6 g/dL (2.2-4.0); Glucose, Blood 90.0 mg/dL (70-99); Potassium, Blood 4.1 mmol/L (3.5-5.5); Sodium, Blood 139.0 mmol/L (136-145); Total Protein, Blood 6.6 g/dL (6.4-8.2)
== END 2025-08-27 14:47 | disposition home or self-care (01) ==
LOC: ATC 01:14
PROVIDERS: Hospitalist
DX: E86.0 Dehydration (principal); C56.9 Malignant neoplasm of unspecified ovary
CPT/HCPCS: 80053; 85025; 96360; J1642; J7030

== ENCOUNTER 2025-09-04 00:21 | Day surgery (SDC) | payer MEDICARE, OTHER ==
[2025-09-04] MEDS ORDERED: NS 1,000 ML IV SCH (07:00)
[2025-09-04 10:22] VITALS: BP 133/69
== END 2025-09-04 11:08 | disposition home or self-care (01) ==
LOC: ATC 00:21
DX: C56.9 Malignant neoplasm of unspecified ovary (principal); E86.0 Dehydration; N18.9 Chronic kidney disease, unspecified
CPT/HCPCS: 96360; J1642; J7030

== ENCOUNTER 2025-09-06 02:25 | Day surgery (SDC) | payer MEDICARE, OTHER | END 2025-09-06 11:14 | disposition home or self-care (01) | LOC: ATC 02:25 | DX: E86.0 Dehydration (principal); C56.9 Malignant neoplasm of unspecified ovary; N18.9 Chronic kidney disease, unspecified ==

== ENCOUNTER 2025-09-09 00:34 | Day surgery (SDC) | payer MEDICARE, OTHER ==
[2025-09-09] MEDS ORDERED: NS 1,000 ML IV SCH (07:00)
[2025-09-09 10:10] VITALS: BP 118/50
== END 2025-09-09 11:10 | disposition home or self-care (01) ==
LOC: ATC 00:34
DX: E86.0 Dehydration (principal); C56.9 Malignant neoplasm of unspecified ovary
CPT/HCPCS: 96360; J1642; J7030

== ENCOUNTER 2025-09-16 00:17 | Day surgery (SDC) | payer MEDICARE, OTHER ==
[2025-09-16] MEDS ORDERED: NS 1,000 ML IV SCH (06:00)
[2025-09-16 10:01] VITALS: BP 139/63
== END 2025-09-16 10:58 | disposition home or self-care (01) ==
LOC: ATC 00:17
DX: E86.0 Dehydration (principal); C56.9 Malignant neoplasm of unspecified ovary; N18.9 Chronic kidney disease, unspecified
CPT/HCPCS: J1642; J7030

== ENCOUNTER 2025-09-25 00:49 | Day surgery (SDC) | payer MEDICARE, OTHER ==
[2025-09-25] MEDS ORDERED: NS 1,000 ML IV SCH (07:00)
[2025-09-25 16:00] VITALS: BP 151/55
== END 2025-09-25 16:46 | disposition home or self-care (01) ==
LOC: ATC 00:49
DX: C56.1 Malignant neoplasm of right ovary (principal); C78.7 Secondary malignant neoplasm of liver and intrahepatic bile duct; C77.4 Secondary and unspecified malignant neoplasm of inguinal and lower limb lymph nodes; C78.6 Secondary malignant neoplasm of retroperitoneum and peritoneum; C79.89 Secondary malignant neoplasm of other specified sites; E86.0 Dehydration; N18.9 Chronic kidney disease, unspecified
CPT/HCPCS: 96360; J1642; J7030

== ENCOUNTER 2025-09-30 10:57 | Day surgery (SDC) | payer MEDICARE, OTHER ==
[2025-09-30] MEDS ORDERED: NS 1,000 ML IV SCH (11:50)
[2025-09-30 13:55] VITALS: BP 116/57
== END 2025-09-30 14:50 | disposition home or self-care (01) ==
LOC: ATC 10:57
DX: C56.9 Malignant neoplasm of unspecified ovary (principal); E86.0 Dehydration
CPT/HCPCS: 96360; 99211; J1642; J7030

== ENCOUNTER 2025-10-07 00:44 | Day surgery (SDC) | payer MEDICARE, OTHER ==
[2025-10-07] MEDS ORDERED: NS 1,000 ML IV SCH (07:00)
[2025-10-07 14:58] VITALS: BP 114/62
== END 2025-10-07 15:55 | disposition home or self-care (01) ==
LOC: ATC 00:44
DX: E86.0 Dehydration (principal); C56.9 Malignant neoplasm of unspecified ovary; N18.9 Chronic kidney disease, unspecified
CPT/HCPCS: 96360; J1642; J7030

== ENCOUNTER 2025-10-14 00:39 | Day surgery (SDC) | payer MEDICARE, OTHER ==
[2025-10-14] MEDS ORDERED: NS 1,000 ML IV SCH (06:00)
[2025-10-14 11:10] VITALS: BP 107/52
== END 2025-10-14 12:02 | disposition home or self-care (01) ==
LOC: ATC 00:39
DX: E86.0 Dehydration (principal); C56.9 Malignant neoplasm of unspecified ovary; C79.9 Secondary malignant neoplasm of unspecified site; N18.9 Chronic kidney disease, unspecified
CPT/HCPCS: 96360; J1642; J7030

== ENCOUNTER 2025-10-16 05:28 | Day surgery (SDC) | payer MEDICARE, OTHER ==
[2025-10-16] MEDS ORDERED: NS 1,000 ML IV SCH (06:00)
[2025-10-16 13:46] VITALS: BP 133/58
== END 2025-10-16 14:50 | disposition home or self-care (01) ==
LOC: ATC 05:28
DX: C56.1 Malignant neoplasm of right ovary (principal); E86.0 Dehydration; K59.00 Constipation, unspecified; N18.9 Chronic kidney disease, unspecified
CPT/HCPCS: 96360; J1642; J7030

== ENCOUNTER 2025-10-18 02:12 | Day surgery (SDC) | payer MEDICARE, OTHER ==
[2025-10-18] MEDS ORDERED: NS 1,000 ML IV SCH (06:00)
[2025-10-18 14:02] VITALS: BP 139/66
== END 2025-10-18 14:55 | disposition home or self-care (01) ==
LOC: ATC 02:12
DX: E86.0 Dehydration (principal); C56.9 Malignant neoplasm of unspecified ovary; N18.9 Chronic kidney disease, unspecified
CPT/HCPCS: 96360; J1642; J7030